=== PATIENT | male | born 1930 | race Hispanic/Latino ===

== ENCOUNTER 2018-07-06 14:22 | Inpatient (IN) | payer MEDICARE ==
[2018-07-06 14:24] VITALS: PULSE 78
[2018-07-06 14:27] VITALS: BMI 26.9
[2018-07-06] MEDS: Albuterol-Ipratrop 3 mg / 0.5 (3 ml) UD IH SCH ×3 (14:30→15:03)
[2018-07-06 14:47] LABS: ARTERIAL BLOOD GAS HCO3 31.6 mmol/L (21-28); ARTERIAL BLOOD GAS O2 SAT 89.6 % (95-98); ARTERIAL BLOOD GAS TCO2 34.5 mmol.L (22-28)
--- NOTE | 2018-07-06 15:02 | ED PDOC ---
Arrival/HPI - General Chief Complaint: Altered Mental Status Time Seen by Provider: 07/06/18 14:26 Historian: EMS, Other (Ed, the patient's guardian) - History of Present Illness Narrative History of Present Illness (Text): 07/06/18 15:00 Patient is an 88 yo male with past medical history of COPD, NSTEMI, Parkinson's, pneumonia, presents to the Emergency Department with altered mental status. As per EMS, the patient's "circuit breaker supervisor," Ed, found the patient at home with decreased level of responsiveness approximately "half hour" prior to arrival. He had seen the patient last at 4 am when reportedly the patient was "coughing a lot". As400 Administrator notes that the patient has appeared weaker over the past 2-3 days. Patient is unable to provide any history due to acuity of his condition. There is no family members present. Time/Duration: Prior to Arrival Symptom Onset: Gradual Symptom Course: Worsening Past Medical History - Infectious Disease Hx of Infectious Diseases: None - Tetanus Immunization Tetanus Immunization: Unknown - Cardiac Hx Congestive Heart Failure: Yes Hx Hypertension: Yes - Pulmonary Hx Chronic Obstructive Pulmonary Disease (COPD): Yes - Neurological Hx Neurological Disorder: Yes Hx Parkinson's Disease: Yes - HEENT Hx HEENT Disorder: Yes Hx Deafness: Yes - Renal Hx Renal Disorder: No - Endocrine/Metabolic Hx Endocrine Disorders: No - Hematological/Oncological Hx Cancer: Yes (PROSTATE) - Integumentary Hx Dermatological Disorder: No - Musculoskeletal/Rheumatological Hx Arthritis: Yes Hx Falls: Yes - Gastrointestinal Hx Gastrointestinal Disorders: No - Genitourinary/Gynecological Hx Genitourinary Disorders: Yes Hx Prostate Problems: Yes - Psychiatric Hx Emotional Abuse: No Hx Physical Abuse: No Hx Substance Use: No - Past Surgical History Past Surgical History: No Previous - Anesthesia Hx Anesthesia Reactions: No Hx Malignant Hyperthermia: No - Suicidal Assessment Feels Threatened In Home Enviroment: No Family/Social History Family/Social History: Unknown Family HX Smoking Status: Never Smoked Hx Alcohol Use: No Hx Substance Use: No Hx Substance Use Treatment: No Allergies/Home Meds Allergies/Adverse Reactions: Allergies No Known Allergies Allergy (Verified 10/02/16 15:21) Home Medications: Home Meds Medication Instructions Recorded Confirmed Pantoprazole [Protonix EC Tab] 40 mg PO QAM 05/02/16 07/06/18 Pramipexole [Mirapex] 1 mg PO TID 08/29/16 07/06/18 Tamsulosin [Flomax] 0.4 mg PO DAILY 09/28/16 07/06/18 Atorvastatin [Lipitor] 40 mg PO HS 07/06/18 07/06/18 Metoprolol Succinate XL [Toprol XL] 1 tab PO DAILY 07/06/18 07/06/18 Mirtazapine [Remeron] 1 tab PO HS 07/06/18 07/06/18 Review of Systems - Review of Systems Systems not reviewed;Unavailable: Acuity of Condition Constitutional: Fatigue. absent: Fevers Respiratory: SOB, Cough Cardiovascular: absent: Chest Pain Gastrointestinal: absent: Abdominal Pain Neurological: absent: Focal Weakness Physical Exam - Physical Exam Narrative Physical Exam (Text): 07/06/18 19:51 Head: Atraumatic. Normocephalic. Eyes: Pupils equal, no conjunctival injection. No proptosis. ENT: Mucous membranes are dry. No angioedema. Neck: Supple. No soft tissue swelling. No crepitus. Trachea midline. Cardiovascular: Regular rate. Regular rhythm. Systolic murmur noted. Distal pulses equal and palpable. Pulmonary/Chest: Tachypneic. Bilateral wheezing with rhonchi. Moderate respiratory distress noted. Abdominal: Soft and non-distended. No pulsatile masses. No rebound or guarding. Rectal: no gross bleeding, no melena Back: No midline deformity. NO edema. No cva tenderness. Extremities: Peripherla cyanosis. No calf pain. Mild edema, but nonpitting. Skin: Skin is pale. No petechiaei. Neurological: Will move all four extremities with no focal weakness noted. Will respond to simple commands. No facial droop noted. No meningeal signs. Sensation grossly intact. Psychiatric:Poor eye contact and interaction. Vital Signs Reviewed: Yes Temperature: Afebrile Pulse: Tachycardic Respiratory Rate: Tachypneic Appearance: Positive for: Ill-Appearing Mental Status: Positive for: Confused Finger Stick Blood Glucose: 136 - Systems Exam Head: Present: Atraumatic Conjunctiva: No: Injected Mouth: Present: Dry Pharnyx: No: ERYTHEMA Nose (Internal): Present: Normal Inspection Neck: Present: Normal Range of Motion. No: Meningeal Signs Respiratory/Chest: Present: Respiratory Distress, Rales, Rhonchi, Tachypneic. No: Good Air Exchange, Tender to Palpation Cardiovascular: Present: Murmurs, Tachycardic Abdomen: No: Tenderness Back: No: CVA Tenderness Upper Extremity: No: Edema Lower Extremity: Present: Edema. No: CALF TENDERNESS Neurological: Present: Motor Func Grossly Intact Skin: Present: Pale Psychiatric: No: Alert, Oriented x 3 Medical Decision Making ED Course and Treatment: 07/06/18 15:18 Patient is noted to have respiratory distress upon arrival. EMS reports that "oxygen saturations in the 60s" when they arrived to house. Patient reportedly does not have immediate family and lives with Ed who identifies himself as his circuit breaker supervisor. He states that the patient has a Living Will and is DNR/DNI. He states that "he has no family". On initial examination he is lethargic, hypoxic. Rhonchi and rales are noted. He was placed on supplemental oxygen and saturations improved to 86%. Patient became more alert and interactive. Duonebs and solumedrol ordered. CXR suggestive of pulmonary edema vs. multifocal pneumonia. IV antibiotics ordered. ABG reviewed. I had a conversation with Ed and he again states patient has no family. Patient cannot provide any history in his acute state. I reviewed prior records and reviewed last available living will. Case was discussed with hospitalist as well as ICU consult. Patient continued on oxygen, nebulizers. We were provided the number for the patient's independent trader who functions as his Power of Principal Law Clerk. Dr. Palencia, the hospitalist, and I reviewed the patient's critical condition, abnormal oxygen levels and chest xray findings, and I discussed the patient's critical nature and specifically the patient's wishes for intubation and "DNR/DNI" status. Power of deputy attorney general requests that patient be intubated after a conversation was had with him regarding his poor respiratory status and indications for intubation including but not limited to low oxygen levels, abnormal blood gas findings, altered mental status, abnormal chest xray findings and worsening of ABG findings. Power of deputy attorney general, Matt Alex, has also communicated directly with hospitalist and national service officer and requests intubation at this time and then reassessment of his condition. Patient intubated by me in the Emergency Department. He was preoxygenated, sedated with Etomidate 20 mg iv. Using 7.5 ET tube patient was intubated with direct visualization of ET tube through the cords, with breath sound auscultated both lungs after procedure and color change on co2 detector. 07/06/18 18:54 Procedure: Chest X-ray Impression: ET tube terminates at the level of clavicles. Consider advancement antegrade into the more inferior trachea follow-up by confirmation radiography. Nasogastric tube insertion adequate. Normal change in right pulmonary infiltrate. Medial left basilar atelectasis suspected. Dictator: Les Jiang MD 07/06/18 20:11 Chest xray findings post intubation reviewed with national service officer. I spoke directly with Dr. Hamilton, ICU attending to re-evaluate placement of tube as patient in ICU. - Critical Care Critical Care Minutes: 45 minutes - RAD Interpretation Radiology Orders: 07/06/18 14:29 CHEST PORTABLE [RAD] Stat - EKG Interpretation EKG Interpretation (Text): 07/06/18 20:24 EKG normal sinus rhythm rate of 67 with sinus arryhtmia with first degree av block Interpreted by ED Physician: Yes Type: 12 lead EKG - Medication Orders Current Medication Orders: Albuterol/Ipratropium (Duoneb 3 Mg/0.5 Mg (3 Ml) Ud) 3 ml IH Q15M SILVIA Stop: 07/06/18 15:01 Discontinued Medications Methylprednisolone (Solu-Medrol) 125 mg IVP STAT STA Stop: 07/06/18 14:36 Disposition/Present on Arrival - Present on Arrival Any Indicators Present on Arrival: Yes History of DVT/PE: No History of Uncontrolled Diabetes: No Urinary Catheter: Yes History of Decub. Ulcer: No History Surgical Site Infection Following: None - Disposition Have Diagnosis and Disposition been Completed?: Yes Diagnosis: Respiratory failure, COPD exacerbation, Pneumonia Disposition: HOSPITALIZED Disposition Time: 17:00 Patient Plan: Admission, ICU Patient Problems: Current Active Problems Problem Status Onset Pneumonia Acute COPD exacerbation Acute Respiratory failure Acute Condition: CRITICAL
[2018-07-06 15:07] LABS: VENOUS BLOOD GAS PO2 88 mm/Hg (30-55)
[2018-07-06 15:08] LABS: ARTERIAL BLOOD GAS PCO2 95 mm/Hg (35-45); ARTERIAL BLOOD GAS PH 7.13 (7.35-7.45)
[2018-07-06 15:08] LABS: BASO # 0.01 K/mm3 (0.0-2.0); BASO % 0.1 % (0.0-3.0); GRAN # 16.23 (1.4-6.5); GRAN % 89.6 % (50.0-68.0); HEMOGLOBIN 13.2 g/dL (14.0-18.0); LYMPH # 1.1 (1.2-3.4); LYMPH % 5.9 % (22.0-35.0); MEAN CELL VOLUME 100.7 fl (80.0-105.0); MEAN CORPUSCULAR HEMOGLOBIN 31.4 pg (25.0-35.0); MEAN CORPUSCULAR HGB CONC 31.2 g/dl (31.0-37.0); MEAN PLATELET VOLUME 10.5 fl (7.0-11.0); MONO # 0.8 (0.1-0.6); MONO % 4.4 % (1.0-6.0); RBC 4.2 10^6/uL (3.5-6.1); WHITE BLOOD COUNT 18.1 10^3/ul (4.5-11.0)
[2018-07-06 15:15] LABS: VENOUS BLOOD PH 7.11 (7.32-7.43)
[2018-07-06] MEDS ORDERED: Piperacill/Tazo 4.5gm in NS 4.5 GM/100 ML BAG IVPB STA (15:17)
[2018-07-06 15:19] LABS: ALB/GLOB RATIO 1.1 (1.1-1.8); ALBUMIN 3.4 g/dL (3.0-4.8); ALT/SGPT 15 U/L (7-56); AST/SGOT 48 U/L (17-59); BLOOD UREA NITROGEN 15 mg/dL (7-21); GFR NON-AFRICAN AMERICAN 57
--- NOTE | 2018-07-06 15:19 | RAD ---
Date of service: 07/06/2018 HISTORY: sob COMPARISON: 10/01/2016 FINDINGS: LUNGS: There is an extensive alveolar infiltrate throughout the right lung. PLEURA: No significant pleural effusion identified, no pneumothorax apparent. CARDIOVASCULAR: There is moderate cardiomegaly and moderate vascular congestion OSSEOUS STRUCTURES: No significant abnormalities. VISUALIZED UPPER ABDOMEN: Normal. OTHER FINDINGS: None. IMPRESSION: Moderate vascular congestion and extensive alveolar infiltrate in the right lung
[2018-07-06 15:23] LABS: INR 1.07; PARTIAL THROMBOPLASTIN TIME 30.7 Seconds (25.1-36.5); PROTHROMBIN TIME 12.2 SECONDS (9.4-12.5)
[2018-07-06 15:29] LABS: B-TYPE NATRIURETIC PEPTIDE 9270 pg/mL (0-450); TROPONIN I 0.07 ng/mL
--- NOTE | 2018-07-06 15:50 | CP.PCM.HP ---
<Tiffany Singh - Last Filed: 07/06/18 16:58> History of Present Illness - History of Present Illness History of Present Illness: Please note history limited as patient was unresponsive and hydramatic specialist, Ed, who was at bedside was a poor historian. Matt Butcher: [phone]; [phone] 88 yo male PMHx CHF, HTN, Pulm HTN, COPD, NSTEMI, prostate ca, Parkinson's disease presents to ER with altered mentation. Patient's hydramatic specialist reported patient was coughing ~4am the morning of admission which was the last time patient was seen at baseline. Then around noon patient was noted to be gurgling and unresponsive with constricted eyes bilaterally [as per the hydramatic specialist] and EMS was called. Patient was not complaining of any fevers, chills, pain prior to the events on the day of admission. At baseline patient's hydramatic specialist reported he is able to ambulate with a walker but described him as "lazy" and that he liked to stay home alot. Patient was unable to complete ADLs ie dressing himself etc at baseline. Renewals Representative denied any known history of falls, accidents, seizure l allen symptoms. PMHx: Parkinson's Disease, Prostate CA, Pulmonary HTN, atrial fibrillation, NSTEMI, COPD, BPH, CHF PSurgHx: cardiac cath 2017 Meds: pls see chart ALL: NKDA SocHx: denies smoking, alcohol use, drug use FamHx: unknown ROS: unobtainable secondary to clinical condition Present on Admission - Present on Admission Any Indicators Present on Admission: No Review of Systems - Review of Systems Systems not reviewed;Unavailable: Acuity of Condition Past Patient History - Infectious Disease Hx of Infectious Diseases: None - Tetanus Immunizations Tetanus Immunization: Unknown - Past Social History Smoking Status: Never Smoked - CARDIAC Hx Congestive Heart Failure: Yes Hx Hypertension: Yes - PULMONARY Hx Chronic Obstructive Pulmonary Disease (COPD): Yes - NEUROLOGICAL Hx Neurological Disorder: Yes Hx Parkinson's Disease: Yes - HEENT Hx HEENT Problems: Yes Hx Deafness: Yes - RENAL Hx Chronic Kidney Disease: No - ENDOCRINE/METABOLIC Hx Endocrine Disorders: No - HEMATOLOGICAL/ONCOLOGICAL Hx Cancer: Yes (PROSTATE) - INTEGUMENTARY Hx Dermatological Problems: No - MUSCULOSKELETAL/RHEUMATOLOGICAL Hx Arthritis: Yes Hx Falls: Yes - GASTROINTESTINAL Hx Gastrointestinal Disorders: No - GENITOURINARY/GYNECOLOGICAL Hx Genitourinary Disorders: Yes Hx Prostate Problems: Yes - PSYCHIATRIC Hx Emotional Abuse: No Hx Physical Abuse: No Hx Substance Use: No - SURGICAL HISTORY Hx Surgeries: No - ANESTHESIA Hx Anesthesia Reactions: No Hx Malignant Hyperthermia: No Meds Allergies/Adverse Reactions: Allergies Allergy/AdvReac Type Severity Reaction Status Date / Time No Known Allergies Allergy Verified 10/02/16 15:21 Physical Exam - Constitutional Appears: Chronically Ill, Other (lethargic) - Head Exam Head Exam: ATRAUMATIC, NORMAL INSPECTION, NORMOCEPHALIC - Eye Exam Eye Exam: Normal appearance. absent: Conjunctival injection, Scleral icterus Pupil Exam: Miosis (b/l) - ENT Exam ENT Exam: Mucous Membranes Dry Additional comments: nonrebreather in place - Respiratory Exam Respiratory Exam: Rales, Rhonchi, Wheezes, NORMAL BREATHING PATTERN. absent: Accessory Muscle Use, Clear to Auscultation Bilateral, Respiratory Distress - Cardiovascular Exam Cardiovascular Exam: +S1, +S2 - GI/Abdominal Exam GI & Abdominal Exam: Soft. absent: Distended, Firm - Rectal Exam Rectal Exam: Deferred - Extremities Exam Extremities exam: Positive for: normal inspection, pedal pulses present. Negative for: pedal edema - Neurological Exam Neurological exam: Altered - Psychiatric Exam Additional comments: lethargic - Skin Skin Exam: Dry, Pallor, Pallor Results - Vital Signs Recent Vital Signs: Last Vital Signs Temp Pulse 56 L 07/06/18 14:55 Resp 25 H 07/06/18 14:55 BP 101/52 L 07/06/18 14:55 Pulse Ox 86 L 07/06/18 14:55 - Labs Result Diagrams: 07/06/18 15:00 07/06/18 15:00 Labs: Laboratory Results - last 24 hr 07/06/18 07/06/18 07/06/18 14:40 15:00 15:00 WBC 18.1 H D RBC 4.20 Hgb 13.2 L Hct 42.3 MCV 100.7 MCH 31.4 MCHC 31.2 RDW 16.0 H Plt Count 220 MPV 10.5 Gran % 89.6 H Lymph % (Auto) 5.9 L [place] % (Auto) 4.4 Eos % (Auto) 0.0 L Baso % (Auto) 0.1 Gran # 16.23 H Lymph # (Auto) 1.1 L [place] # (Auto) 0.8 H Eos # (Auto) 0.0 Baso # (Auto) 0.01 PT 12.2 INR 1.07 APTT 30.7 pCO2 95 H* pO2 61.0 L HCO3 31.6 H ABG pH 7.13 L* ABG Total CO2 34.5 H ABG O2 Saturation 89.6 L ABG Base Excess -0.4 ABG Potassium 3.8 VBG pH VBG pCO2 VBG HCO3 VBG Total CO2 VBG O2 Sat (Calc) VBG Base Excess VBG Potassium Sodium 141.0 Chloride 109.0 H Glucose 124 H Lactate 1.2 FiO2 50.0 Potassium Carbon Dioxide Anion Gap BUN Creatinine Est GFR ( Amer) Est GFR (Non-Af Amer) Random Glucose Calcium Magnesium Total Bilirubin AST ALT Alkaline Phosphatase Lactate Dehydrogenase Total Creatine Kinase Troponin I NT-Pro-B Natriuret Pep Total Protein Albumin Globulin Albumin/Globulin Ratio Arterial Blood Potassium 3.8 Venous Blood Potassium Digoxin 07/06/18 07/06/18 07/06/18 15:00 15:00 15:00 WBC RBC Hgb Hct MCV MCH MCHC RDW Plt Count MPV Gran % Lymph % (Auto) [place] % (Auto) Eos % (Auto) Baso % (Auto) Gran # Lymph # (Auto) [place] # (Auto) Eos # (Auto) Baso # (Auto) PT INR APTT pCO2 pO2 88 H HCO3 ABG pH ABG Total CO2 ABG O2 Saturation ABG Base Excess ABG Potassium VBG pH 7.11 L* VBG pCO2 103.0 H* VBG HCO3 32.7 H VBG Total CO2 35.9 H VBG O2 Sat (Calc) 96.7 H VBG Base Excess 0.0 VBG Potassium 4.2 Sodium 140.0 144 Chloride 108.0 H 105 Glucose 126 H Lactate 1.7 FiO2 21.0 Potassium 4.3 Carbon Dioxide 33 Anion Gap 10 BUN 15 Creatinine 1.2 Est GFR ( Amer) > 60 Est GFR (Non-Af Amer) 57 Random Glucose 127 H Calcium 8.0 L Magnesium 1.9 Total Bilirubin 0.5 AST 48 ALT 15 Alkaline Phosphatase 107 Lactate Dehydrogenase 649 Total Creatine Kinase 47 Troponin I 0.07 D NT-Pro-B Natriuret Pep 9270 H Total Protein 6.5 Albumin 3.4 Globulin 3.1 Albumin/Globulin Ratio 1.1 Arterial Blood Potassium Venous Blood Potassium 4.2 Digoxin < 0.4 L Assessment & Plan - Assessment and Plan (Free Text) Assessment: 88 yo male PMHx CHF, HTN, Pulm HTN, COPD, NSTEMI, prostate ca, Parkinson's disease presents to ER with altered mentation. ABG suggestive of hypercapnic respiratory failure. Patient intubated and placed on vent and transferred to MICU for further conditioning Plan: Neuro -altered mentation- lethargic and unresponsive -f/u head CT -f/u UDS -maintain HoB above 30 degrees -maintain normothermia Cardio -1 L bolus NS in the ER -hold home BP meds [patient has hx of HTN] -proBNP 9270 -maintain MAP > 65 -Cardio Dr. Justice consulted Pulm -hypercapnic respiratory acidosis -intubated on vent -empiric abx Vancomycin and Merrem -CXR: moderate vascular congestion and extensive alveolar infiltrate in the right lung -Solumedrol 20mg ivp q12 -Duoneb 3ml inh q6 GI -Protnix 40mg ivp -no acute issues -insert NGT Renal -maintain strict Is and Os -insert cruz -avoid nephrotoxic drugs Endo -Accucheck q6h -maintain euglycemia ID -likely CAP vs aspiration pna -empiric abx Vancomycin and Merrem -f/u procalcitonin -f/u blood, urine, and sputum cultures -ID Dr. Pastrana consulted DVT ppx: Heparin 5000u sc q8, SCDs Diet: NPO Discussed with Dr. Slime Singh PGY3 <Ashkan Palencia - Last Filed: 07/07/18 16:35> Results - Vital Signs Recent Vital Signs: Last Vital Signs Temp 98.0 F 07/07/18 12:00 Pulse 53 L 07/07/18 15:02 Resp 15 07/07/18 10:50 BP 81/32 L 07/07/18 15:02 Pulse Ox 95 07/07/18 15:02 - Labs Result Diagrams: 07/07/18 03:30 07/07/18 03:30 Labs: Laboratory Results - last 24 hr 07/06/18 07/06/18 07/06/18 16:40 16:40 19:10 WBC RBC Hgb Hct MCV MCH MCHC RDW Plt Count MPV Gran % Lymph % (Auto) [place] % (Auto) Eos % (Auto) Baso % (Auto) Gran # Lymph # (Auto) [place] # (Auto) Eos # (Auto) Baso # (Auto) Neutrophils % (Manual) Band Neutrophils % Lymphocytes % (Manual) Monocytes % (Manual) Platelet Evaluation pCO2 100 H* pO2 72.0 L HCO3 33.3 H ABG pH 7.13 L* ABG Total CO2 36.4 H ABG O2 Saturation 95.4 ABG O2 Content ABG Base Excess 0.9 ABG Hemoglobin ABG Carboxyhemoglobin POC ABG HHb (Measured) ABG Methemoglobin ABG O2 Capacity ABG Potassium 3.8 Hgb O2 Saturation Sodium 141.0 Chloride 109.0 H Glucose 117 H Lactate 0.8 FiO2 100.0 Potassium Carbon Dioxide Anion Gap BUN Creatinine Est GFR ( Amer) Est GFR (Non-Af Amer) POC Glucose (mg/dL) Random Glucose Calcium Phosphorus Magnesium Total Bilirubin AST ALT Alkaline Phosphatase Troponin I Total Protein Albumin Globulin Albumin/Globulin Ratio Triglycerides Cholesterol LDL Cholesterol Direct HDL Cholesterol Arterial Blood Potassium 3.8 Urine Color Dark yellow Urine Appearance Slight-cloudy Urine pH 5.5 Ur Specific [place] >= 1.030 Urine Protein 100 H Urine Glucose (UA) Negative Urine Ketones 15 H Urine Blood Trace-lysed H Urine Nitrate Negative Urine Bilirubin Small H Urine Urobilinogen 1.0 H Ur Leukocyte Esterase Trace H Urine RBC 1 - 3 Urine WBC 1 - 3 Ur Epithelial Cells 0 - 2 Amorphous Sediment Few Urine Bacteria Trace Urine Opiates Screen Urine Methadone Screen Ur Barbiturates Screen Ur Phencyclidine Scrn Ur Amphetamines Screen U Benzodiazepines Scrn U Oth Cocaine Metabols U Cannabinoids Screen Influenza Typ A,B (EIA) Negative for flu a/b 07/06/18 07/06/18 07/06/18 19:10 21:26 21:52 WBC RBC Hgb Hct MCV MCH MCHC RDW Plt Count MPV Gran % Lymph % (Auto) [place] % (Auto) Eos % (Auto) Baso % (Auto) Gran # Lymph # (Auto) [place] # (Auto) Eos # (Auto) Baso # (Auto) Neutrophils % (Manual) Band Neutrophils % Lymphocytes % (Manual) Monocytes % (Manual) Platelet Evaluation pCO2 pO2 HCO3 ABG pH ABG Total CO2 ABG O2 Saturation ABG O2 Content ABG Base Excess ABG Hemoglobin ABG Carboxyhemoglobin POC ABG HHb (Measured) ABG Methemoglobin ABG O2 Capacity ABG Potassium Hgb O2 Saturation Sodium Chloride Glucose Lactate FiO2 Potassium Carbon Dioxide Anion Gap BUN Creatinine Est GFR ( Amer) Est GFR (Non-Af Amer) POC Glucose (mg/dL) 132 H Random Glucose Calcium Phosphorus Magnesium Total Bilirubin AST ALT Alkaline Phosphatase Troponin I 0.11 D Total Protein Albumin Globulin Albumin/Globulin Ratio Triglycerides Cholesterol LDL Cholesterol Direct HDL Cholesterol Arterial Blood Potassium Urine Color Urine Appearance Urine pH Ur Specific [place] Urine Protein Urine Glucose (UA) Urine Ketones Urine Blood Urine Nitrate Urine Bilirubin Urine Urobilinogen Ur Leukocyte Esterase Urine RBC Urine WBC Ur Epithelial Cells Amorphous Sediment Urine Bacteria Urine Opiates Screen Negative Urine Methadone Screen Negative Ur Barbiturates Screen Negative Ur Phencyclidine Scrn Negative Ur Amphetamines Screen Negative U Benzodiazepines Scrn Negative U Oth Cocaine Metabols Negative U Cannabinoids Screen Negative Influenza Typ A,B (EIA) 07/07/18 07/07/18 07/07/18 03:30 03:30 03:30 WBC 16.8 H RBC 4.01 Hgb 12.6 L Hct 39.0 L MCV 97.3 D MCH 31.4 MCHC 32.3 RDW 15.8 H Plt Count 194 MPV 10.8 Gran % 94.0 H Lymph % (Auto) 2.4 L [place] % (Auto) 3.6 Eos % (Auto) 0.0 L Baso % (Auto) 0.0 Gran # 15.77 H Lymph # (Auto) 0.4 L [place] # (Auto) 0.6 Eos # (Auto) 0.0 Baso # (Auto) 0.00 Neutrophils % (Manual) 89 H Band Neutrophils % 4 H Lymphocytes % (Manual) 3 L Monocytes % (Manual) 4 Platelet Evaluation Normal pCO2 pO2 HCO3 ABG pH ABG Total CO2 ABG O2 Saturation ABG O2 Content ABG Base Excess ABG Hemoglobin ABG Carboxyhemoglobin POC ABG HHb (Measured) ABG Methemoglobin ABG O2 Capacity ABG Potassium Hgb O2 Saturation Sodium 137 Chloride 105 Glucose Lactate FiO2 Potassium 4.5 Carbon Dioxide 25 Anion Gap 12 BUN 19 Creatinine 1.1 Est GFR ( Amer) > 60 Est GFR (Non-Af Amer) > 60 POC Glucose (mg/dL) Random Glucose 142 H Calcium 7.5 L Phosphorus 2.9 Magnesium 1.7 Total Bilirubin 0.9 AST 40 ALT 36 Alkaline Phosphatase 66 Troponin I 0.11 Total Protein 6.0 Albumin 2.9 L Globulin 3.1 Albumin/Globulin Ratio 0.9 L Triglycerides 517 H Cholesterol 78 L LDL Cholesterol Direct < 30 HDL Cholesterol 40 Arterial Blood Potassium Urine Color Urine Appearance Urine pH Ur Specific [place] Urine Protein Urine Glucose (UA) Urine Ketones Urine Blood Urine Nitrate Urine Bilirubin Urine Urobilinogen Ur Leukocyte Esterase Urine RBC Urine WBC Ur Epithelial Cells Amorphous Sediment Urine Bacteria Urine Opiates Screen Urine Methadone Screen Ur Barbiturates Screen Ur Phencyclidine Scrn Ur Amphetamines Screen U Benzodiazepines Scrn U Oth Cocaine Metabols U Cannabinoids Screen Influenza Typ A,B (EIA) 07/07/18 07/07/18 07/07/18 06:00 07:47 11:06 WBC RBC Hgb Hct MCV MCH MCHC RDW Plt Count MPV Gran % Lymph % (Auto) [place] % (Auto) Eos % (Auto) Baso % (Auto) Gran # Lymph # (Auto) [place] # (Auto) Eos # (Auto) Baso # (Auto) Neutrophils % (Manual) Band Neutrophils % Lymphocytes % (Manual) Monocytes % (Manual) Platelet Evaluation pCO2 30 L pO2 177.0 H HCO3 24.5 ABG pH 7.52 H ABG Total CO2 25.4 ABG O2 Saturation 99.8 H ABG O2 Content 16.5 ABG Base Excess 2.2 ABG Hemoglobin 11.7 ABG Carboxyhemoglobin 1.5 POC ABG HHb (Measured) 0.2 ABG Methemoglobin 0.6 ABG O2 Capacity 16.5 ABG Potassium Hgb O2 Saturation 97.8 Sodium Chloride Glucose Lactate FiO2 100.0 Potassium Carbon Dioxide Anion Gap BUN Creatinine Est GFR ( Amer) Est GFR (Non-Af Amer) POC Glucose (mg/dL) 120 H 124 H Random Glucose Calcium Phosphorus Magnesium Total Bilirubin AST ALT Alkaline Phosphatase Troponin I Total Protein Albumin Globulin Albumin/Globulin Ratio Triglycerides Cholesterol LDL Cholesterol Direct HDL Cholesterol Arterial Blood Potassium Urine Color Urine Appearance Urine pH Ur Specific [place] Urine Protein Urine Glucose (UA) Urine Ketones Urine Blood Urine Nitrate Urine Bilirubin Urine Urobilinogen Ur Leukocyte Esterase Urine RBC Urine WBC Ur Epithelial Cells Amorphous Sediment Urine Bacteria Urine Opiates Screen Urine Methadone Screen Ur Barbiturates Screen Ur Phencyclidine Scrn Ur Amphetamines Screen U Benzodiazepines Scrn U Oth Cocaine Metabols U Cannabinoids Screen Influenza Typ A,B (EIA) Attending/Attestation - Attestation I have personally seen and examined this patient.: Yes I have fully participated in the care of the patient.: Yes I have reviewed all pertinent clinical information: Yes Notes (Text): 07/07/18 16:30 attending note; Patient seen and examined with resident in ER. Patient is on 100% non rebreather. Noncommunicative. History from patient's caregiver by the bedside. Patient complaint of cough since last night. This morning found to be more lethargic. Patient is a 88 year old male with PMHx of CHF, HTN, Pulm HTN, COPD, NSTEMI, prostate ca, Parkinson's disease, gait instability presents to ER with altered mentation. hypercapnic respiratory failure; currently patient is nonverbal. On nonrebreather mask. minimally Responsive. case discussed with Power of consumer attorney Matt Alex [phone] / [phone] in detail. Patient is full code for now. Patient is intubated. We will be transferred to ICU. case discussed with pulverizer feeder in detail. CT head ordered. Monitor closely in ICU. Message left with patient's niece joseph Smith at [phone]. prognosis is poor. Both ER attending and intensivt discussed the medical condition with patient's power of consumer attorney Matt Alex.
[2018-07-06] MEDS ORDERED: Vancomycin 1gm in NS 250ml 1 GM/250 ML BAG IVPB SCH (16:15)
[2018-07-06] MEDS ORDERED: Sodium Chloride 0.9% 1,000 ML IV SCH ×2 (16:15→20:45)
[2018-07-06 16:43] LABS: ARTERIAL BLOOD GAS HCO3 33.3 mmol/L (21-28); ARTERIAL BLOOD GAS O2 SAT 95.4 % (95-98); ARTERIAL BLOOD GAS PCO2 100 mm/Hg (35-45); ARTERIAL BLOOD GAS TCO2 36.4 mmol.L (22-28)
[2018-07-06 16:48] LABS: ARTERIAL BLOOD GAS PH 7.13 (7.35-7.45)
[2018-07-06] MEDS ORDERED: Sodium Chloride 0.9% 1,000 ML IV STA (16:52)
[2018-07-06] MEDS ORDERED: Succinylcholine 200 mg/10 ml Inj IV ONE (16:57)
[2018-07-06] MEDS ORDERED: Etomidate 20 mg/10ml Inj IV ONE (16:57)
--- NOTE | 2018-07-06 18:34 | RAD ---
Date of service: 07/06/2018 HISTORY: post intubation COMPARISON: Portable chest 07/06/2018, 2:35 p.m.. FINDINGS: LUNGS: Interval endotracheal intubation terminates 8.1 cm above the jonathan approximately, at the level of the upper clavicles. Consider advancing the tube further into the trachea an additional 3-4 cm followed by confirmation radiography. A nasogastric tube is in place terminating at the left upper quadrant abdomen. Persistent heterogeneous infiltrate is seen affecting the mid inferior right lung zones. Medial left basilar opacity reflects borderline atelectasis. PLEURA: No significant pleural effusion identified, no pneumothorax apparent. CARDIOVASCULAR: Stable prominent cardiac silhouette. Underlying limited pulmonary vascular congestion difficult to completely exclude. OSSEOUS STRUCTURES: No significant abnormalities. VISUALIZED UPPER ABDOMEN: Normal. OTHER FINDINGS: None. IMPRESSION: ET tube terminates at the level of clavicles. Consider advancement antegrade into the more inferior trachea follow-up by confirmation radiography. Nasogastric tube insertion adequate. Normal change in right pulmonary infiltrate. Medial left basilar atelectasis suspected.
[2018-07-06 19:17] LABS: PH,URINE 5.5 (4.7-8.0); URINE BILIRUBIN SMALL (NEGATIVE); URINE BLOOD TRACE-LYSED (NEGATIVE); URINE GLUCOSE (UA) NEGATIVE (NEGATIVE); URINE LEUKOCYTE ESTERASE TRACE Leu/uL (NEGATIVE); URINE PROTEIN 100 mg/dL (<30 mg/dL)
[2018-07-06 19:19] LABS: URINE APPEARANCE SLIGHT-CLOUDY (CLEAR); URINE COLOR DARK YELLOW (YELLOW)
[2018-07-06 19:24] LABS: URINE EPITHELIAL CELLS 0 - 2 /hpf (0-5)
[2018-07-06 19:25] LABS: URINE AMORPHOUS SEDIMENT FEW; URINE BACTERIA TRACE (NEG)
[2018-07-06 19:45] LABS: PHENCYCLIDINE, UR NEGATIVE (NEGATIVE)
[2018-07-06 19:58] LABS: BARBITURATES, UR NEGATIVE (NEGATIVE); BENZODIAZEPINES, UR NEGATIVE (NEGATIVE); OPIATES, UR NEGATIVE (NEGATIVE)
[2018-07-06] MEDS ORDERED: Piperacillin/Tazobact 2.25gm 2.25 GM/100 ML BAG IVPB SCH (20:00)
[2018-07-06] MEDS ORDERED: Propofol 10 mg/ml 1,000 MG/100 ML VIAL IV PRN (21:32)
[2018-07-06] MEDS ORDERED: MethylPREDNISolone 40 mg Vial IVP SCH ×2 (22:00)
[2018-07-06] MEDS ORDERED: MEROPENEM 500 MG in NS 500 MG/50 ML BAG IVPB SCH (22:00)
[2018-07-06] MEDS: Sodium Chloride 0.9% 1,000 ML IV SCH (22:03)
[2018-07-06] MEDS: MethylPREDNISolone 40 mg Vial IVP SCH (22:04)
[2018-07-06] MEDS: Meropenem IV 1 gm in NS 1 GM/50 ML BAG IVPB SCH (22:04)
[2018-07-06] MEDS: levoFLOXacin 750 mg in D5W 750 MG/150 ML BAG IVPB SCH (22:05)
--- NOTE | 2018-07-06 23:33 | CARD ---
APPROVED REPORT Date of service: 07/06/2018 EKG Measurement Heart [id number] <Conclusion> Sinus rhythm with sinus arrhythmia with 1st degree AV block Septal infarct, age undetermined Abnormal ECG
[2018-07-07] MEDS: Albuterol-Ipratrop 3 mg / 0.5 (3 ml) UD IH SCH ×4 (02:46→19:46)
--- NOTE | 2018-07-07 03:42 | CON ---
DATE: 07/06/2018 HISTORY OF PRESENT ILLNESS: This is an 88-year-old gentleman with history of Parkinson disease, CHF, hypertension, pulmonary hypertension, COPD, coronary artery disease who presented with acute onset of altered mental status. It appears that about half an hour prior to arrival to [facility] ER, those symptoms happened. No more history available at present time as no family or caregivers at bedside at present time and the patient is unable to provide any history. No nausea, no vomiting, no diarrhea, no constipation. PAST MEDICAL HISTORY: Parkinson disease, pulmonary hypertension, atrial fibrillation, coronary artery disease, COPD, BPH, CHF. ALLERGIES: NKDA. MEDICATION AT HOME: Remeron, Protonix, metoprolol, isosorbide mononitrate, Flomax, carbidopa/levodopa, entacapone, Lipitor. SOCIAL HISTORY: No alcohol, illicit drug abuse. No tobacco smoking. REVIEW OF SYSTEMS: Review of 12-organ system other than mentioned in history of present illness is negative. PHYSICAL EXAMINATION: VITAL SIGNS: Blood pressure 101/52, heart rate 56, oxygen saturation 92% on 100% on partial non-rebreather, respiratory rate 25. ENT: Head and neck atraumatic. LUNGS: Crackles bilaterally, right more than left. HEART: Irregular rate and rhythm. S1 and S2 distant. ABDOMEN: Soft, nontender, nondistended. MUSCULOSKELETAL: Trace bilateral pedal and ankle edema. NEUROLOGIC: The patient is not seen moving extremities spontaneously. SKIN: Moist. PSYCHIATRIC: The patient is very lethargic and nonresponsive to verbal stimuli. LABORATORY DATA: WBC 18.1, hemoglobin 13.2, platelet count 220. Sodium 144, potassium 4.3, chloride 105, carbon dioxide 33, BUN 15, creatinine 1.2, glucose 127, calcium 8. ProBNP 9270. AST 48, ALT 15, total bilirubin 0.5, magnesium 1.9. ABG showed 7.13/100/72 and that was on 100% partial non-rebreather. INR 1.07. Digoxin level is less than 0.4. Chest x-ray showed lobar pneumonia on the right side. EKG showed first-degree AV block, sinus rhythm. No specific ischemic changes. ASSESSMENT AND PLAN: This is an 88-year-old gentleman with severe sepsis secondary to lobar pneumonia/community-acquired pneumonia, complicated by multiorgan system failure including septic encephalopathy, acute kidney injury and hemodynamic instability. At present time, we will proceed with ABC stabilization including intubation and maintaining gas exchange and ventilatory parameters (A and B) as well as fluid resuscitation and hemodynamic support with pressors (C). We will start septic workup including blood, urine, sputum culture, procalcitonin level. We will start broad-spectrum antibiotics and get Infectious Disease on board. CT head would be reasonable to obtain as well. Echocardiogram and trending troponin would be reasonable as well. The patient has hypercapnic respiratory failure, however his mental status makes him unlikely to cooperate with BiPAP and CO2 retention progress. The patient will also be on low-dose steroids for severe community-acquired pneumonia as well as potential bronchospasm. We will continue with deep venous thrombosis and gastrointestinal prophylaxes with low tidal volume ventilation to prevent progression into acute lung injury, tidal volume of 4 to 8 mL of predicted body weight and plateau pressure less than 30 cm of water. Head of bed elevated at >35 degrees. Oral hygiene and VAP bundle. Once hemodynamics stabilized, we will utilize conservative fluid and oxygen management, daily sedation vacation and weaning trials. We will maintain blood glucose within 140-180 range according to NICE-SUGAR trial. We will try to avoid nephrotoxic medication but not at expense of treating underlying disease, and avoid hyperchloremia and maintaining mean arterial pressure closer to 70 as the patient has history of hypertension. The patient will stay n.p.o. for now. We will continue with gastrointestinal prophylaxis. ccm time 40 min Rah Lozano MD JEANETTE
[2018-07-07 03:55] LABS: GRAN # 15.77 (1.4-6.5); HEMOGLOBIN 12.6 g/dL (14.0-18.0); LYMPH # 0.4 (1.2-3.4); LYMPH % 2.4 % (22.0-35.0); MEAN CELL VOLUME 97.3 fl (80.0-105.0); MEAN CORPUSCULAR HEMOGLOBIN 31.4 pg (25.0-35.0); MEAN CORPUSCULAR HGB CONC 32.3 g/dl (31.0-37.0); MEAN PLATELET VOLUME 10.8 fl (7.0-11.0); MONO # 0.6 (0.1-0.6); MONO % 3.6 % (1.0-6.0); PLATELET COUNT 194 10^3/uL (120.0-450.0); RBC 4.01 10^6/uL (3.5-6.1); RED CELL DISTRIBUTION WIDTH 15.8 % (11.5-14.5); WHITE BLOOD COUNT 16.8 10^3/ul (4.5-11.0)
[2018-07-07 03:59] LABS: HDL CHOLESTEROL 40 mg/dL (29-60)
[2018-07-07 04:15] LABS: ALB/GLOB RATIO 0.9 (1.1-1.8); ALBUMIN 2.9 g/dL (3.0-4.8); ALT/SGPT 36 U/L (7-56); AST/SGOT 40 U/L (17-59); BLOOD UREA NITROGEN 19 mg/dL (7-21); CALCIUM 7.5 mg/dL (8.4-10.5); GFR NON-AFRICAN AMERICAN > 60; TROPONIN I 0.11 ng/mL
[2018-07-07 04:22] LABS: BAND 4 % (0-2); LYMPHOCYTE 3 % (22.0-35.0); MONOCYTE 4 % (1.0-6.0); NEUTROPHIL 89 % (50.0-70.0); PLATELET ESTIMATE NORMAL (NORMAL)
[2018-07-07 06:17] LABS: LDL CHOLESTEROL < 30 mg/dL (0-129)
[2018-07-07 06:18] LABS: ARTERIAL BLOOD GAS HCO3 24.5 mmol/L (21-28); ARTERIAL BLOOD GAS HEMOGLOBIN 11.7 g/dL (11.7-17.4); ARTERIAL BLOOD GAS O2 CAPACITY 16.5 mL/dl (16-24); ARTERIAL BLOOD GAS O2 CONTENT 16.5 ML/dl (15-23); ARTERIAL BLOOD GAS O2 SAT 99.8 % (95-98); ARTERIAL BLOOD GAS PCO2 30 mm/Hg (35-45); ARTERIAL BLOOD GAS PH 7.52 (7.35-7.45); ARTERIAL BLOOD GAS TCO2 25.4 mmol.L (22-28)
--- NOTE | 2018-07-07 07:00 | CP.PCM.PN ---
<Tiffany Singh - Last Filed: 07/07/18 15:18> Subjective - Date & Time of Evaluation Date of Evaluation: 07/07/18 Time of Evaluation: 06:59 - Subjective Subjective: [id number] Progress note for Dr. Palencia Patient seen and examined at bedside. No acute events overnight. Intubated on vent (14, 350, 5, 50) and sedated. 600cc output from NGT on intermittent suction. UO 100cc overnight. ROS unobtainable secondary to clinical condition. Objective - Vital Signs/Intake and Output Vital Signs (last 24 hours): Temp Pulse Resp BP Pulse Ox 98.3 F 99 H 20 138/70 100 07/06/18 20:53 07/07/18 02:00 07/06/18 20:53 07/07/18 02:00 07/07/18 02:00 Intake and Output: 07/06/18 07/07/18 18:59 06:59 Intake Total 0 Balance 0 - Medications Medications: Current Medications Albuterol/Ipratropium (Duoneb 3 Mg/0.5 Mg (3 Ml) Ud) 3 ml IH [id number] SILVIA Last Admin: 07/07/18 02:46 Dose: 3 ml Heparin Sodium (Porcine) (Heparin) 5,000 units SC Q8 SILVIA; Protocol Last Admin: 07/07/18 06:51 Dose: 5,000 units Vancomycin HCl (Vancomycin 1gm) 1 gm in 250 mls @ 167 mls/hr IVPB DAILY SILVIA; Protocol Last Admin: 07/06/18 17:47 Dose: 167 mls/hr Levofloxacin/Dextrose (Levaquin 750mg) 750 mg in 150 mls @ 100 mls/hr IVPB DAILY SILVIA; Protocol Last Admin: 07/06/18 22:05 Dose: 100 mls/hr Meropenem (Merrem Iv 1 Gm Premix) 1 gm in 50 mls @ 100 mls/hr IVPB Q12 SILVIA; Protocol Last Admin: 07/06/18 22:04 Dose: 100 mls/hr Sodium Chloride (Sodium Chloride 0.9%) 1,000 mls @ 75 mls/hr IV .[id number] SILVIA Last Admin: 07/06/18 22:03 Dose: 75 mls/hr Propofol (Diprivan) 1,000 mg in 100 mls @ 2.558 mls/hr IV .Q24H PRN; Protocol PRN Reason: TITRATE PER MD ORDER Last Titration: 07/06/18 22:26 Dose: 20 mcg/kg/min, 10.233 mls/hr Methylprednisolone (Solu-Medrol) 40 mg IVP Q12 [facility] Last Admin: 07/06/18 22:04 Dose: 40 mg Pantoprazole Sodium (Protonix Inj) 40 mg IVP DAILY SILVIA - Labs Labs: 07/07/18 03:30 07/07/18 03:30 PT 12.2 SECONDS (9.4-12.5) 07/06/18 15:00 INR 1.07 07/06/18 15:00 APTT 30.7 Seconds (25.1-36.5) 07/06/18 15:00 - Constitutional Appears: No Acute Distress, Cachectic, Chronically Ill - Head Exam Head Exam: ATRAUMATIC, NORMAL INSPECTION, NORMOCEPHALIC - Eye Exam Eye Exam: Normal appearance. absent: Conjunctival injection, Scleral icterus - ENT Exam ENT Exam: Mucous Membranes Dry Additional comments: ET tube in place - Respiratory Exam Respiratory Exam: Rales, Rhonchi. absent: Accessory Muscle Use, Clear to Ausculation Bilateral, Wheezes - Cardiovascular Exam Cardiovascular Exam: REGULAR RHYTHM, +S1, +S2, Murmur - GI/Abdominal Exam GI & Abdominal Exam: Soft, Normal Bowel Sounds. absent: Firm, Guarding, Rigid, Tenderness - Rectal Exam Rectal Exam: Deferred - Extremities Exam Extremities Exam: absent: Pedal Edema - Neurological Exam Additional comments: sedated - Psychiatric Exam Additional comments: sedated - Skin Skin Exam: Dry, Intact, Pallor, Pallor Assessment and Plan - Assessment and Plan (Free Text) Assessment: 88 yo male PMHx CHF, HTN, Pulm HTN, COPD, NSTEMI, prostate ca, Parkinson's disease presents to ER with altered mentation. ABG suggestive of hypercapnic respiratory failure. Patient intubated and placed on vent. Transferred to MICU for further management of severe sepsis with acute toxic metabolic en cephalopathy likely secondary to severe right sided pneuomonia Plan: Neuro -lethargic and unresponsive on presentation; currently intubated and sedated -currently on -Head CT unremarkable -negative UDS -maintain HoB above 30 degrees -maintain normothermia Cardio -1 L bolus NS in the ER; now on NS @ 75 -hold home BP meds [patient has hx of HTN] -proBNP 9270 -maintain MAP > 65 -Cardio Dr. Justice consulted Pulm -hypercapnic respiratory acidosis -intubated on vent (14, 350, 5, 50) -empiric abx Vancomycin, Levaquin and Merrem -CXR: moderate vascular congestion and extensive alveolar infiltrate in the right lung -Solumedrol 40mg ivp q12 -Duoneb 3ml inh q6 -daily weaning trials GI -Protonix 40mg ivp -no acute issues -monitor NGT output Renal -maintain strict Is and Os -insert cruz -avoid nephrotoxic drugs Endo -Accucheck q6h -maintain euglycemia ID -likely CAP vs aspiration pna -empiric abx Vancomycin, Levaquin and Merrem -f/u procalcitonin and Leginoella -f/u blood, urine, and sputum cultures -ID Dr. Pastrana consulted DVT ppx: Heparin 5000u sc q8, SCDs Diet: NPO Discussed with Dr. Slime Singh PGY3 <Ashkan Palencia - Last Filed: 07/07/18 16:38> Objective - Vital Signs/Intake and Output Vital Signs (last 24 hours): Temp Pulse Resp BP Pulse Ox 98.0 F 53 L 15 81/32 L 95 07/07/18 12:00 07/07/18 15:02 07/07/18 10:50 07/07/18 15:02 07/07/18 15:02 Intake and Output: 07/07/18 07/07/18 06:59 18:59 Intake Total 970 Output Total 700 Balance 270 - Medications Medications: Current Medications Albuterol/Ipratropium (Duoneb 3 Mg/0.5 Mg (3 Ml) Ud) 3 ml IH [id number] SILVIA Last Admin: 07/07/18 13:58 Dose: 3 ml Heparin Sodium (Porcine) (Heparin) 5,000 units SC Q8 SILVIA; Protocol Last Admin: 07/07/18 13:28 Dose: 5,000 units Levofloxacin/Dextrose (Levaquin 750mg) 750 mg in 150 mls @ 100 mls/hr IVPB DAILY SILVIA; Protocol Last Admin: 07/07/18 10:25 Dose: 100 mls/hr Sodium Chloride (Sodium Chloride 0.9%) 1,000 mls @ 75 mls/hr IV .[id number] SILVIA Last Admin: 07/07/18 10:26 Dose: 75 mls/hr Propofol (Diprivan) 1,000 mg in 100 mls @ 2.558 mls/hr IV .Q24H PRN; Protocol PRN Reason: TITRATE PER MD ORDER Last Titration: 07/07/18 06:00 Dose: 0 mcg/kg/min, 0 mls/hr Vancomycin HCl (Vancomycin 1gm) 1 gm in 250 mls @ 167 mls/hr IVPB Q12 SIL[facility]IA; Protocol Last Admin: 07/07/18 10:24 Dose: 167 mls/hr Midazolam 100 mg/100ml in NS (Midazolam 100 Mg/100ml In Ns) 100 mg in 100 mls @ 2 mls/hr IV .Q24H PRN; Protocol PRN Reason: Sedation Last Admin: 07/07/18 11:14 Dose: 2 mg/hr, 2 mls/hr Meropenem (Merrem Iv 1 Gm Premix) 1 gm in 50 mls @ 100 mls/hr IVPB Q8 SILVIA; Protocol Last Admin: 07/07/18 13:29 Dose: Not Given Sodium Chloride (Sodium Chloride 0.9%) 1,000 mls @ 999 mls/hr IV .Q1H1M STA Stop: 07/07/18 16:40 Last Admin: 07/07/18 16:14 Dose: 999 mls/hr Sodium Chloride (Sodium Chloride 0.9%) 1,000 mls @ 999 mls/hr IV .Q1H1M STA Stop: 07/07/18 17:09 Methylprednisolone (Solu-Medrol) 40 mg IVP Q12 SILVIA Last Admin: 07/07/18 10:23 Dose: 40 mg Pantoprazole Sodium (Protonix Inj) 40 mg IVP DAILY [facility] Last Admin: 07/07/18 10:24 Dose: 40 mg - Labs Labs: 07/07/18 03:30 07/07/18 03:30 PT 12.2 SECONDS (9.4-12.5) 07/06/18 15:00 INR 1.07 07/06/18 15:00 APTT 30.7 Seconds (25.1-36.5) 07/06/18 15:00 Attending/Attestation - Attestation I have personally seen and examined this patient.: Yes I have fully participated in the care of the patient.: Yes I have reviewed all pertinent clinical information, including history, physical exam and plan: Yes Notes (Text): 07/07/18 16:35 attending note; Patient seen and examined with resident in ICU. Patient is intubated. Vitals stable. She and is afebrile and nontoxic. Patient is a 88 year old male with PMHx of CHF, HTN, Pulm HTN, COPD, NSTEMI, prostate ca, Parkinson's disease, gait instability presents to ER with altered mentation. hypercapnic respiratory failure; currently intubated. Weaning protol per ICU. CT head Is negative. right-sided pneumonia; chest x-ray howed diffuse alveolar infiltrates. ID evaluation appreciated. Continue meropenem, levofloxacin and vancomycin. continue IV Solu-Medrol. GI and DVT prophylaxis. Monitor patient closely. Case discussed with power of trust and estates attorney Matt Alex in detail today.
[2018-07-07] MEDS ORDERED: Midazolam 100 mg/100ml in NS 100 MG/100 ML SOL IV PRN (09:18)
--- NOTE | 2018-07-07 09:47 | CP.PCM.PN ---
Subjective - Date & Time of Evaluation Date of Evaluation: 07/07/18 Time of Evaluation: 08:10 - Subjective Subjective: Patient seen and examined at bedside. Remains intubated, sedated. Objective - Vital Signs/Intake and Output Vital Signs (last 24 hours): Temp Pulse Resp BP Pulse Ox 98.3 F 54 L 20 138/70 100 07/06/18 20:53 07/07/18 06:00 07/06/18 20:53 07/07/18 02:00 07/07/18 02:00 Intake and Output: 07/07/18 07/07/18 06:59 18:59 Intake Total 970 Output Total 700 Balance 270 - Medications Medications: Current Medications Albuterol/Ipratropium (Duoneb 3 Mg/0.5 Mg (3 Ml) Ud) 3 ml IH [id number] SILVIA Last Admin: 07/07/18 07:52 Dose: 3 ml Heparin Sodium (Porcine) (Heparin) 5,000 units SC Q8 SILVIA; Protocol Last Admin: 07/07/18 06:51 Dose: 5,000 units Levofloxacin/Dextrose (Levaquin 750mg) 750 mg in 150 mls @ 100 mls/hr IVPB DAILY SILVIA; Protocol Last Admin: 07/06/18 22:05 Dose: 100 mls/hr Meropenem (Merrem Iv 1 Gm Premix) 1 gm in 50 mls @ 100 mls/hr IVPB Q12 SILVIA; Protocol Last Admin: 07/06/18 22:04 Dose: 100 mls/hr Sodium Chloride (Sodium Chloride 0.9%) 1,000 mls @ 75 mls/hr IV .[id number] SILVIA Last Admin: 07/06/18 22:03 Dose: 75 mls/hr Propofol (Diprivan) 1,000 mg in 100 mls @ 2.558 mls/hr IV .Q24H PRN; Protocol PRN Reason: TITRATE PER MD ORDER Last Titration: 07/07/18 06:00 Dose: 0 mcg/kg/min, 0 mls/hr Vancomycin HCl (Vancomycin 1gm) 1 gm in 250 mls @ 167 mls/hr IVPB Q12 SILVIA; Protocol Midazolam 100 mg/100ml in NS (Midazolam 100 Mg/100ml In Ns) 100 mg in 100 mls @ 2 mls/hr IV .Q24H PRN; Protocol PRN Reason: Sedation Methylprednisolone (Solu-Medrol) 40 mg IVP Q12 [facility] Last Admin: 07/06/18 22:04 Dose: 40 mg Pantoprazole Sodium (Protonix Inj) 40 mg IVP DAILY SILVIA - Labs Labs: 07/07/18 03:30 07/07/18 03:30 PT 12.2 SECONDS (9.4-12.5) 07/06/18 15:00 INR 1.07 07/06/18 15:00 APTT 30.7 Seconds (25.1-36.5) 07/06/18 15:00 - Constitutional Appears: No Acute Distress, Cachectic, Chronically Ill - Head Exam Head Exam: NORMAL INSPECTION - Eye Exam Eye Exam: Normal appearance - ENT Exam ENT Exam: Mucous Membranes Dry - Respiratory Exam Respiratory Exam: Decreased Breath Sounds, NORMAL BREATHING PATTERN - Cardiovascular Exam Cardiovascular Exam: REGULAR RHYTHM, +S1, +S2 - GI/Abdominal Exam GI & Abdominal Exam: Soft, Normal Bowel Sounds - Extremities Exam Extremities Exam: Pedal Edema - Neurological Exam Additional comments: intubated, sedated Assessment and Plan - Assessment and Plan (Free Text) Assessment: Patient is 88yo male with PMHx CHF, HTN, Pulm HTN, COPD, prostate ca, Parkinson's disease admitted with hypercapnic resp failure, PNA, severe sepsis Severe Sepsis Hypercapnic Resp failure PNA CHF Pulm HTN Hx Prostate Ca - currently afebrile, BP stable, comfortable in NAD, intubated, sedated - labs, imaging, chart reviewed - cultures pending, on broad spectrum abx Recommend: - cont with vent support, low tidal volume ventilation, titrate FiO2, decrease RR, daily CXR, ABG, sedation vacation - Follow up cultures, sputum culture, Urine Lg, Strep, Check Procal - follow up ID - cont with Merrem, Vanco, Azithro - IVF hydration - ECHO - Versed for sedation as needed - GI ppx - DVT ppx - Goals of care discussion with HCP/POA Critical care time 40 minutes
--- NOTE | 2018-07-07 09:52 | CT ---
Date of service: 07/06/2018 PROCEDURE: CT HEAD WITHOUT CONTRAST. HISTORY: lethargy COMPARISON: None available. TECHNIQUE: Axial computed tomography images were obtained through the head/brain without intravenous contrast. Radiation dose: Total exam DLP = 2170 mGy-cm. This CT exam was performed using one or more of the following dose reduction techniques: Automated exposure control, adjustment of the mA and/or kV according to patient size, and/or use of iterative reconstruction technique. FINDINGS: HEMORRHAGE: No intracranial hemorrhage. BRAIN: Study was degraded by motion artifact mild chronic microvascular changes and mild atrophy. No acute findings VENTRICLES: Unremarkable. No hydrocephalus. CALVARIUM: Unremarkable. PARANASAL SINUSES: There is opacification of the left maxillary sinus MASTOID AIR CELLS: Unremarkable as visualized. No inflammatory changes. OTHER FINDINGS: The report concurs with the preliminary report IMPRESSION: No acute intracranial findings
[2018-07-07] MEDS ORDERED: Tiotropium 18 mcg Cap For Inhalation IH SCH (10:00)
[2018-07-07] MEDS: MethylPREDNISolone 40 mg Vial IVP SCH ×2 (10:23→22:25)
[2018-07-07] MEDS: Meropenem IV 1 gm in NS 1 GM/50 ML BAG IVPB SCH ×3 (10:23→22:25)
[2018-07-07] MEDS: Vancomycin 1gm in NS 250ml 1 GM/250 ML BAG IVPB SCH ×2 (10:24→22:26)
[2018-07-07] MEDS: levoFLOXacin 750 mg in D5W 750 MG/150 ML BAG IVPB SCH (10:25)
[2018-07-07] MEDS: Sodium Chloride 0.9% 1,000 ML IV SCH (10:26)
--- NOTE | 2018-07-07 11:15 | RAD ---
Date of service: 07/06/2018 HISTORY: ET placement COMPARISON: Earlier same day FINDINGS: LUNGS: No change in right-sided infiltrate. The endotracheal tube is in satisfactory position between the clavicles and jonathan. Nasogastric tube in satisfactory position PLEURA: Small right pleural effusion CARDIOVASCULAR: Mild cardiomegaly OSSEOUS STRUCTURES: No significant abnormalities. VISUALIZED UPPER ABDOMEN: Normal. OTHER FINDINGS: None. IMPRESSION: No change in right-sided infiltrate. The endotracheal tube is in satisfactory position between the clavicles and jonathan. Nasogastric tube in satisfactory position
--- NOTE | 2018-07-07 11:20 | RAD ---
Date of service: 07/07/2018 HISTORY: intubated on vent COMPARISON: 07/06/2018 FINDINGS: LUNGS: There is a diffuse alveolar infiltrate in the right lung unchanged. The endotracheal tube and nasogastric tube are unchanged PLEURA: No significant pleural effusion identified, no pneumothorax apparent. CARDIOVASCULAR: Normal. OSSEOUS STRUCTURES: No significant abnormalities. VISUALIZED UPPER ABDOMEN: Normal. OTHER FINDINGS: None. IMPRESSION: There is a diffuse alveolar infiltrate in the right lung unchanged. The endotracheal tube and nasogastric tube are unchanged
[2018-07-07] MEDS ORDERED: Magnesium Sulfate 1 gm in D5W 1 GM/100 ML BAG IVPB ONE (14:15)
[2018-07-07] MEDS ORDERED: Sodium Chloride 0.9% 500 ML IV STA (15:02)
--- NOTE | 2018-07-07 15:05 | CP.PCM.CON ---
History of Present Illness - History of Present Illness History of Present Illness: History was taken from Leanne, sister of the rater associate who is the POA of the patient. 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 The patient apparently was not as active for the past week. There was no note of fever at home, no vomiting, no diarrhea. The patient lives with property and casualty insurance agent, no animals in his home. The patient was noted to have leukocytosis and CXR was showing right sided infiltrates. In the ED, the patient was intubated because of his respiratory function and mental status. Full ROS is unobtainable because the patient is intubated. Infectious Diseases consult is requested to further evaluate and manage. Review of Systems - Review of Systems Systems not reviewed;Unavailable: Intubated Past Patient History - Infectious Disease Hx of Infectious Diseases: None - Tetanus Immunizations Tetanus Immunization: Unknown - Past Social History Smoking Status: Never Smoked - CARDIAC Hx Congestive Heart Failure: Yes Hx Hypertension: Yes - PULMONARY Hx Chronic Obstructive Pulmonary Disease (COPD): Yes - NEUROLOGICAL Hx Neurological Disorder: Yes Hx Parkinson's Disease: Yes - HEENT Hx HEENT Problems: Yes Hx Deafness: Yes - RENAL Hx Chronic Kidney Disease: No - ENDOCRINE/METABOLIC Hx Endocrine Disorders: No - HEMATOLOGICAL/ONCOLOGICAL Hx Cancer: Yes (PROSTATE) - INTEGUMENTARY Hx Dermatological Problems: No - MUSCULOSKELETAL/RHEUMATOLOGICAL Hx Arthritis: Yes Hx Falls: Yes - GASTROINTESTINAL Hx Gastrointestinal Disorders: No - GENITOURINARY/GYNECOLOGICAL Hx Genitourinary Disorders: Yes Hx Prostate Problems: Yes - PSYCHIATRIC Hx Emotional Abuse: No Hx Physical Abuse: No Hx Substance Use: No - SURGICAL HISTORY Hx Surgeries: No - ANESTHESIA Hx Anesthesia Reactions: No Hx Malignant Hyperthermia: No Meds Allergies/Adverse Reactions: Allergies Allergy/AdvReac Type Severity Reaction Status Date / Time No Known Allergies Allergy Verified 10/02/16 15:21 - Medications Medications: Current Medications Albuterol/Ipratropium (Duoneb 3 Mg/0.5 Mg (3 Ml) Ud) 3 ml IH [id number] SILVIA Heparin Sodium (Porcine) (Heparin) 5,000 units SC Q8 SILVIA; Protocol Vancomycin HCl (Vancomycin 1gm) 1 gm in 250 mls @ 167 mls/hr IVPB DAILY SILVIA; Protocol Last Admin: 07/06/18 17:47 Dose: 167 mls/hr Meropenem/Sodium Chloride (Merrem Iv 500 Mg/Ns 50 Ml) 500 mg in 50 mls @ 100 mls/hr IVPB Q8 [facility]ILVIA; Protocol Sodium Chloride (Sodium Chloride 0.9%) 1,000 mls @ 100 mls/hr IV .Q10H [facility]IL[facility] Methylprednisolone (Solu-Medrol) 40 mg IVP Q12 [facility] Pantoprazole Sodium (Protonix Inj) 40 mg IVP DAILY SILVIA Physical Exam - Constitutional Appears: Other (intubated, sedated) - Head Exam Head Exam: NORMAL INSPECTION - ENT Exam Additional comments: ET tube in place - Respiratory Exam Respiratory Exam: Decreased Breath Sounds - Cardiovascular Exam Cardiovascular Exam: +S1, +S2 - GI/Abdominal Exam GI & Abdominal Exam: Soft. absent: Tenderness Results - Vital Signs Recent Vital Signs: Last Vital Signs Temp 98.7 F 07/06/18 14:55 Pulse 76 07/06/18 19:50 Resp 20 07/06/18 19:50 BP 110/38 L 07/06/18 19:50 Pulse Ox 100 07/06/18 19:50 - Labs Result Diagrams: 07/07/18 03:30 07/07/18 03:30 Labs: Laboratory Results - last 24 hr 07/06/18 07/06/18 07/06/18 14:40 15:00 15:00 WBC 18.1 H D RBC 4.20 Hgb 13.2 L Hct 42.3 MCV 100.7 MCH 31.4 MCHC 31.2 RDW 16.0 H Plt Count 220 MPV 10.5 Gran % 89.6 H Lymph % (Auto) 5.9 L Armstrong % (Auto) 4.4 Eos % (Auto) 0.0 L Baso % (Auto) 0.1 Gran # 16.23 H Lymph # (Auto) 1.1 L Armstrong # (Auto) 0.8 H Eos # (Auto) 0.0 Baso # (Auto) 0.01 PT 12.2 INR 1.07 APTT 30.7 pCO2 95 H* pO2 61.0 L HCO3 31.6 H ABG pH 7.13 L* ABG Total CO2 34.5 H ABG O2 Saturation 89.6 L ABG Base Excess -0.4 ABG Potassium 3.8 VBG pH VBG pCO2 VBG HCO3 VBG Total CO2 VBG O2 Sat (Calc) VBG Base Excess VBG Potassium Sodium 141.0 Chloride 109.0 H Glucose 124 H Lactate 1.2 FiO2 50.0 Potassium Carbon Dioxide Anion Gap BUN Creatinine Est GFR ( Amer) Est GFR (Non-Af Amer) Random Glucose Calcium Magnesium Total Bilirubin AST ALT Alkaline Phosphatase Lactate Dehydrogenase Total Creatine Kinase Troponin I NT-Pro-B Natriuret Pep Total Protein Albumin Globulin Albumin/Globulin Ratio Arterial Blood Potassium 3.8 Venous Blood Potassium Urine Color Urine Appearance Urine pH Ur Specific [place] Urine Protein Urine Glucose (UA) Urine Ketones Urine Blood Urine Nitrate Urine Bilirubin Urine Urobilinogen Ur Leukocyte Esterase Urine RBC Urine WBC Ur Epithelial Cells Amorphous Sediment Urine Bacteria Digoxin Urine Opiates Screen Urine Methadone Screen Ur Barbiturates Screen Ur Phencyclidine Scrn Ur Amphetamines Screen U Benzodiazepines Scrn U Oth Cocaine Metabols U Cannabinoids Screen Influenza Typ A,B (EIA) 07/06/18 07/06/18 07/06/18 15:00 15:00 15:00 WBC RBC Hgb Hct MCV MCH MCHC RDW Plt Count MPV Gran % Lymph % (Auto) Armstrong % (Auto) Eos % (Auto) Baso % (Auto) Gran # Lymph # (Auto) Armstrong # (Auto) Eos # (Auto) Baso # (Auto) PT INR APTT pCO2 pO2 88 H HCO3 ABG pH ABG Total CO2 ABG O2 Saturation ABG Base Excess ABG Potassium VBG pH 7.11 L* VBG pCO2 103.0 H* VBG HCO3 32.7 H VBG Total CO2 35.9 H VBG O2 Sat (Calc) 96.7 H VBG Base Excess 0.0 VBG Potassium 4.2 Sodium 140.0 144 Chloride 108.0 H 105 Glucose 126 H Lactate 1.7 FiO2 21.0 Potassium 4.3 Carbon Dioxide 33 Anion Gap 10 BUN 15 Creatinine 1.2 Est GFR ( Amer) > 60 Est GFR (Non-Af Amer) 57 Random Glucose 127 H Calcium 8.0 L Magnesium 1.9 Total Bilirubin 0.5 AST 48 ALT 15 Alkaline Phosphatase 107 Lactate Dehydrogenase 649 Total Creatine Kinase 47 Troponin I 0.07 D NT-Pro-B Natriuret Pep 9270 H Total Protein 6.5 Albumin 3.4 Globulin 3.1 Albumin/Globulin Ratio 1.1 Arterial Blood Potassium Venous Blood Potassium 4.2 Urine Color Urine Appearance Urine pH Ur Specific [place] Urine Protein Urine Glucose (UA) Urine Ketones Urine Blood Urine Nitrate Urine Bilirubin Urine Urobilinogen Ur Leukocyte Esterase Urine RBC Urine WBC Ur Epithelial Cells Amorphous Sediment Urine Bacteria Digoxin < 0.4 L Urine Opiates Screen Urine Methadone Screen Ur Barbiturates Screen Ur Phencyclidine Scrn Ur Amphetamines Screen U Benzodiazepines Scrn U Oth Cocaine Metabols U Cannabinoids Screen Influenza Typ A,B (EIA) 07/06/18 07/06/18 07/06/18 16:40 16:40 19:10 WBC RBC Hgb Hct MCV MCH MCHC RDW Plt Count MPV Gran % Lymph % (Auto) Armstrong % (Auto) Eos % (Auto) Baso % (Auto) Gran # Lymph # (Auto) Armstrong # (Auto) Eos # (Auto) Baso # (Auto) PT INR APTT pCO2 100 H* pO2 72.0 L HCO3 33.3 H ABG pH 7.13 L* ABG Total CO2 36.4 H ABG O2 Saturation 95.4 ABG Base Excess 0.9 ABG Potassium 3.8 VBG pH VBG pCO2 VBG HCO3 VBG Total CO2 VBG O2 Sat (Calc) VBG Base Excess VBG Potassium Sodium 141.0 Chloride 109.0 H Glucose 117 H Lactate 0.8 FiO2 100.0 Potassium Carbon Dioxide Anion Gap BUN Creatinine Est GFR ( Amer) Est GFR (Non-Af Amer) Random Glucose Calcium Magnesium Total Bilirubin AST ALT Alkaline Phosphatase Lactate Dehydrogenase Total Creatine Kinase Troponin I NT-Pro-B Natriuret Pep Total Protein Albumin Globulin Albumin/Globulin Ratio Arterial Blood Potassium 3.8 Venous Blood Potassium Urine Color Dark yellow Urine Appearance Slight-cloudy Urine pH 5.5 Ur Specific [place] >= 1.030 Urine Protein 100 H Urine Glucose (UA) Negative Urine Ketones 15 H Urine Blood Trace-lysed H Urine Nitrate Negative Urine Bilirubin Small H Urine Urobilinogen 1.0 H Ur Leukocyte Esterase Trace H Urine RBC 1 - 3 Urine WBC 1 - 3 Ur Epithelial Cells 0 - 2 Amorphous Sediment Few Urine Bacteria Trace Digoxin Urine Opiates Screen Urine Methadone Screen Ur Barbiturates Screen Ur Phencyclidine Scrn Ur Amphetamines Screen U Benzodiazepines Scrn U Oth Cocaine Metabols U Cannabinoids Screen Influenza Typ A,B (EIA) Negative for flu a/b 07/06/18 19:10 WBC RBC Hgb Hct MCV MCH MCHC RDW Plt Count MPV Gran % Lymph % (Auto) Armstrong % (Auto) Eos % (Auto) Baso % (Auto) Gran # Lymph # (Auto) Armstrong # (Auto) Eos # (Auto) Baso # (Auto) PT INR APTT pCO2 pO2 HCO3 ABG pH ABG Total CO2 ABG O2 Saturation ABG Base Excess ABG Potassium VBG pH VBG pCO2 VBG HCO3 VBG Total CO2 VBG O2 Sat (Calc) VBG Base Excess VBG Potassium Sodium Chloride Glucose Lactate FiO2 Potassium Carbon Dioxide Anion Gap BUN Creatinine Est GFR ( Amer) Est GFR (Non-Af Amer) Random Glucose Calcium Magnesium Total Bilirubin AST ALT Alkaline Phosphatase Lactate Dehydrogenase Total Creatine Kinase Troponin I NT-Pro-B Natriuret Pep Total Protein Albumin Globulin Albumin/Globulin Ratio Arterial Blood Potassium Venous Blood Potassium Urine Color Urine Appearance Urine pH Ur Specific [place] Urine Protein Urine Glucose (UA) Urine Ketones Urine Blood Urine Nitrate Urine Bilirubin Urine Urobilinogen Ur Leukocyte Esterase Urine RBC Urine WBC Ur Epithelial Cells Amorphous Sediment Urine Bacteria Digoxin Urine Opiates Screen Negative Urine Methadone Screen Negative Ur Barbiturates Screen Negative Ur Phencyclidine Scrn Negative Ur Amphetamines Screen Negative U Benzodiazepines Scrn Negative U Oth Cocaine Metabols Negative U Cannabinoids Screen Negative Influenza Typ A,B (EIA) Assessment & Plan - Assessment and Plan (Free Text) Plan: Assessment Severe sepsis with ventilator-dependent respiratory failure and acute toxic- metabolic encephalopathy due to right sided severe pneumonia CAD chronic CHF HTN COPD pulmonary HTN Parkinson's disease Plan Started the patient on Vancomycin, Merrem and Levaquin pending blood, sputum cx, urine Legionella Ag, PCT; reviewed CXR will monitor clinically patient is in critical condition
[2018-07-07] MEDS ORDERED: Sodium Chloride 0.9% 1,000 ML IV STA ×2 (15:40→16:09)
[2018-07-07 20:37] LABS: GRAN # 13.94 (1.4-6.5); GRAN % 92.5 % (50.0-68.0); HEMOGLOBIN 11.6 g/dL (14.0-18.0); LYMPH # 0.4 (1.2-3.4); LYMPH % 2.7 % (22.0-35.0); MEAN CELL VOLUME 97.1 fl (80.0-105.0); MEAN CORPUSCULAR HEMOGLOBIN 30.7 pg (25.0-35.0); MEAN CORPUSCULAR HGB CONC 31.6 g/dl (31.0-37.0); MEAN PLATELET VOLUME 11.1 fl (7.0-11.0); MONO # 0.7 (0.1-0.6); MONO % 4.8 % (1.0-6.0); RBC 3.78 10^6/uL (3.5-6.1); RED CELL DISTRIBUTION WIDTH 15.9 % (11.5-14.5); WHITE BLOOD COUNT 15.1 10^3/ul (4.5-11.0)
[2018-07-07 21:23] LABS: BLOOD UREA NITROGEN 22 mg/dL (7-21); GFR NON-AFRICAN AMERICAN > 60
[2018-07-07 21:24] LABS: ALBUMIN 2.6 g/dL (3.0-4.8); ALT/SGPT 35 U/L (7-56); AST/SGOT 26 U/L (17-59); CALCIUM 7.6 mg/dL (8.4-10.5)
[2018-07-07 21:25] LABS: TROPONIN I 0.12 ng/mL
--- NOTE | 2018-07-08 00:23 | CON ---
DATE: 07/07/2018 SERVICE: CARDIOLOGY REASON FOR DICTATION: Covering Dr. Nasir Justice. REASON FOR CONSULTATION: Coronary artery disease, admitted with altered mental status, status post intubated respiratory failure. BRIEF CLINICAL HISTORY: This is an 88-year-old male with past medical history significant for pulmonary hypertension, atrial fibrillation, chronic coronary artery disease, COPD, BPH, CHF, admitted with altered mental status requiring intubation. The patient is now on vent, unable to get any history. PAST MEDICAL HISTORY: Significant for Parkinson disease, pulmonary hypertension, atrial fibrillation, coronary artery disease, COPD, BPH and CHF. ALLERGIES: NO KNOWN DRUG ALLERGY. CURRENT MEDICATIONS: The patient at home was taking Remeron, Protonix, metoprolol, isosorbide dinitrate, Flomax, carbidopa, Lipitor. SOCIAL HISTORY: Denies smoking. Denies any history of alcohol abuse. RECENT CARDIAC WORKUP: The history of documented coronary artery disease, history of renal insufficiency, history of chronic atrial fibrillation, history of moderate aortic stenosis, history of hypertension. Most recently, the patient had an echocardiography on 08/30/2016 that revealed ejection fraction 55% to 60%, RV function mildly reduced, severe aortic stenosis, trace to mild aortic regurgitation, mild mitral regurgitation, moderate tricuspid regurgitation, RV systolic pressure of 63 consistent with pulmonary hypertension dated 08/31/2016. Peak gradient across the aortic valve at that time was 58 mmHg, consistent with severe aortic stenosis, trace to mild aortic regurgitation. Prior to that, the patient had an echo in 12/14/2014, ejection fraction 55%, [id number] aortic stenosis at that time. The patient had a cardiac catheterization on 12/15/2014, at that time, the patient presented bcl-EX-[id number] myocardial infarction, revealed nonobstructive coronary artery disease, limited on the circumflex 50% to 60% disease, ejection fraction 65%, EDP within the range of 18 to 20 dated 12/15/2014. History of paroxysmal atrial fibrillation, history of rhabdomyolysis , history of chronic renal insufficiency. REVIEW OF SYSTEMS: As per HPI. CURRENT MEDICATIONS AT HOME: The patient is taking Flomax, MiraLax, metoprolol, isosorbide dinitrate, carbidopa, atorvastatin. PHYSICAL EXAMINATION: VITAL SIGNS: Temperature afebrile, heart rate 54, blood pressure 138/87 . HEENT: PERRLA. Extraocular muscles intact. NECK: Supple. No carotid bruits or thyromegaly. CHEST: Clear to auscultation. HEART: S1 and S2, regular. ABDOMEN: Soft. EXTREMITIES: Clubbing and cyanosis negative. LABORATORY DATA: WBC 16.8, hemoglobin 12.3, hematocrit 39, platelet count 194. Chemistry shows sodium 136, potassium 4.5, chloride 105, carbon dioxide 25, anion gap of 12, BUN 19, creatinine 1.1. Troponin 0.11. IMPRESSION: An 88-year-old male with past medical history significant for paroxysmal atrial fibrillation, status post cardiac catheterization, nonobstructive coronary artery disease in the past, aortic stenosis, admitted with altered mental status, history of Parkinson's disease. So far, troponin remains in indeterminate range, history of chronic renal insufficiency in the past, intubated, moderate to severe aortic stenosis. RECOMMENDATIONS: We will repeat echo, lipid profile, TSH, hemoglobin A1c. We will monitor with you and transfer care tomorrow to Dr. Justice. Admitted with possible sepsis, altered mental status, Parkinson disease. Treat aggressively. We will continue Lovenox 1 mg/kg, try to extubate the patient. Once extubated, reassess and further recommendations will be made depending on the hospital course. Follow up serial CPK, troponin. Rule out early pneumonia, rule out sepsis. Thank you Dr. Butt for providing us the opportunity in taking care of the patient, Ankur Nino. Duke Alfredo MD
[2018-07-08] MEDS: Albuterol-Ipratrop 3 mg / 0.5 (3 ml) UD IH SCH ×4 (01:54→19:20)
[2018-07-08] MEDS: Sodium Chloride 0.9% 1,000 ML IV SCH ×2 (05:26→18:39)
[2018-07-08] MEDS: Meropenem IV 1 gm in NS 1 GM/50 ML BAG IVPB SCH ×3 (05:27→22:14)
[2018-07-08 05:47] LABS: ARTERIAL BLOOD GAS HCO3 24.7 mmol/L (21-28); ARTERIAL BLOOD GAS O2 CAPACITY 15.3 mL/dl (16-24); ARTERIAL BLOOD GAS O2 CONTENT 15.2 ML/dl (15-23); ARTERIAL BLOOD GAS O2 SAT 99.4 % (95-98); ARTERIAL BLOOD GAS PCO2 39 mm/Hg (35-45); ARTERIAL BLOOD GAS PH 7.41 (7.35-7.45); ARTERIAL BLOOD GAS TCO2 25.9 mmol.L (22-28)
[2018-07-08 06:14] LABS: GRAN # 12.87 (1.4-6.5); GRAN % 94.2 % (50.0-68.0); HEMOGLOBIN 11.7 g/dL (14.0-18.0); LYMPH # 0.3 (1.2-3.4); LYMPH % 2.3 % (22.0-35.0); MEAN CELL VOLUME 96.6 fl (80.0-105.0); MEAN CORPUSCULAR HGB CONC 32.1 g/dl (31.0-37.0); MEAN PLATELET VOLUME 11.6 fl (7.0-11.0); MONO # 0.5 (0.1-0.6); MONO % 3.5 % (1.0-6.0); RBC 3.77 10^6/uL (3.5-6.1); WHITE BLOOD COUNT 13.7 10^3/ul (4.5-11.0)
[2018-07-08 06:39] LABS: ALBUMIN 2.5 g/dL (3.0-4.8); ALT/SGPT 36 U/L (7-56); AST/SGOT 21 U/L (17-59); BLOOD UREA NITROGEN 22 mg/dL (7-21); CALCIUM 7.6 mg/dL (8.4-10.5); GFR NON-AFRICAN AMERICAN > 60; HDL CHOLESTEROL 37 mg/dL (29-60); LDL CHOLESTEROL < 30 mg/dL (0-129)
--- NOTE | 2018-07-08 07:54 | CP.PCM.PN ---
<Alex Kim - Last Filed: 07/08/18 07:35> Subjective - Date & Time of Evaluation Date of Evaluation: 07/08/18 Time of Evaluation: 07:35 - Subjective Subjective: PGY-2 medicine progress note for Dr Palencia No acute events noted overnight. Patient was intubated and sedated, review of systems could not be attained. He was responsive to sternal rub and spontaneously moved his extremities. Objective - Vital Signs/Intake and Output Vital Signs (last 24 hours): Temp Pulse Resp BP Pulse Ox 98.0 F 52 L 15 105/39 L 99 07/07/18 12:00 07/07/18 22:00 07/07/18 10:50 07/07/18 19:30 07/07/18 19:29 - Medications Medications: Current Medications Albuterol/Ipratropium (Duoneb 3 Mg/0.5 Mg (3 Ml) Ud) 3 ml IH [id number] [facility] Last Admin: 07/08/18 01:54 Dose: 3 ml Heparin Sodium (Porcine) (Heparin) 5,000 units SC Q8 [facility]; Protocol Last Admin: 07/08/18 05:27 Dose: 5,000 units Levofloxacin/Dextrose (Levaquin 750mg) 750 mg in 150 mls @ 100 mls/hr IVPB DAILY [facility]; Protocol Last Admin: 07/07/18 10:25 Dose: 100 mls/hr Sodium Chloride (Sodium Chloride 0.9%) 1,000 mls @ 75 mls/hr IV .[id number] [facility] Last Admin: 07/08/18 05:26 Dose: 75 mls/hr Vancomycin HCl (Vancomycin 1gm) 1 gm in 250 mls @ 167 mls/hr IVPB Q12 [facility]; Protocol Last Admin: 07/07/18 22:26 Dose: 167 mls/hr Meropenem (Merrem Iv 1 Gm Premix) 1 gm in 50 mls @ 100 mls/hr IVPB Q8 [facility]; Protocol Last Admin: 07/08/18 05:27 Dose: 100 mls/hr Methylprednisolone (Solu-Medrol) 40 mg IVP Q12 [facility] Last Admin: 07/07/18 22:25 Dose: 40 mg Pantoprazole Sodium (Protonix Inj) 40 mg IVP DAILY [facility] Last Admin: 10/06/18 10:24 Dose: 40 mg - Labs Labs: 07/08/18 05:00 07/08/18 05:00 PT 12.2 SECONDS (9.4-12.5) 07/06/18 15:00 INR 1.07 07/06/18 15:00 APTT 30.7 Seconds (25.1-36.5) 07/06/18 15:00 - Additional Findings Additional findings: - Constitutional Appears: No Acute Distress, Cachectic, Chronically Ill - Head Exam Head Exam: ATRAUMATIC, NORMAL INSPECTION, NORMOCEPHALIC - Eye Exam Eye Exam: Normal appearance. absent: Conjunctival injection, Scleral icterus - ENT Exam ENT Exam: Mucous Membranes Dry Additional comments: ET tube in place - Respiratory Exam Respiratory Exam: Rales, Rhonchi. absent: Accessory Muscle Use, Clear to Ausculation Bilateral, Wheezes - Cardiovascular Exam Cardiovascular Exam: REGULAR RHYTHM, +S1, +S2, Murmur - GI/Abdominal Exam GI & Abdominal Exam: Soft, Normal Bowel Sounds. absent: Firm, Guarding, Rigid, Tenderness - Rectal Exam Rectal Exam: Deferred - Extremities Exam Extremities Exam: absent: Pedal Edema - Neurological Exam Additional comments: sedated - Psychiatric Exam Additional comments: sedated - Skin Skin Exam: Dry, Intact, Pallor, Pallor Assessment and Plan - Assessment and Plan (Free Text) Plan: 88 yo male PMHx CHF, HTN, Pulm HTN, COPD, NSTEMI, prostate ca, Parkinson's disease presents to ER with altered mentation. ABG suggestive of hypercapnic respiratory failure. Patient intubated and placed on vent. Transferred to MICU for further management of severe sepsis with acute toxic metabolic encephalopathy likely secondary to severe right sided pneuomonia Plan: ID -likely CAP vs aspiration pna -empiric abx Vancomycin, Levaquin and Merrem -procalcitonin elevated 2.61 -f/u Legionella -blood cultures 07/06 negative up to date -sputum culture 07/07 negative -flu negative -f/u urine cx -aspiration precautions -ID Dr. Pastrana consulted * Started the patient on Vancomycin, Merrem and Levaquin Neuro -lethargic and unresponsive on presentation; currently intubated and sedated * Plan is to extubate today 07/08/18 -Head CT unremarkable -negative UDS -maintain HoB above 30 degrees -maintain normothermia Cardio -Hx of CAD, proxysmal AFib, severe aortic stenosis, HTN, last cardiac cath in 11/2014 -1 L bolus NS in the ER; now on NS @ 75 -hold home BP meds [patient has hx of HTN] -proBNP 9270 -maintain MAP > 65 -Cardio Dr. Justice consulted * Discussed with covering cardio Dr Alfredo on 07/08 who stated prophylactic dose of heparin is okay for now - no need for therapeutic lovenox -Lipid profile normal -TSH normal -F/U echo report -Head of bed 30 degrees Pulm -hypercapnic respiratory acidosis -intubated on vent (14, 350, 5, 50) -empiric abx Vancomycin, Levaquin and Merrem -CXR: moderate vascular congestion and extensive alveolar infiltrate in the right lung -Solumedrol 40mg ivp q12 -Duoneb 3ml inh q6 -daily weaning trials GI -Protonix 40mg ivp -no acute issues -monitor NGT output Renal -maintain strict Is and Os -insert cruz -avoid nephrotoxic drugs Endo -Accucheck q6h -maintain euglycemia DVT ppx: Heparin 5000u sc q8, SCDs Diet: NPO Discussed with Dr. Palencia <Ashkan Palencia - Last Filed: 07/08/18 15:38> Objective - Vital Signs/Intake and Output Vital Signs (last 24 hours): Temp Pulse Resp BP Pulse Ox 98.0 F 52 L 15 105/39 L 99 07/07/18 12:00 07/07/18 22:00 07/07/18 10:50 07/07/18 19:30 07/07/18 19:29 - Medications Medications: Current Medications Albuterol/Ipratropium (Duoneb 3 Mg/0.5 Mg (3 Ml) Ud) 3 ml IH [id number] [facility] Last Admin: 07/08/18 14:49 Dose: 3 ml Carbidopa/Levodopa/Entacapone (Stalevo 150) 1 tab PO TID [facility] Heparin Sodium (Porcine) (Heparin) 5,000 units SC Q8 [facility]; Protocol Last Admin: 07/08/18 13:21 Dose: 5,000 units Levofloxacin/Dextrose (Levaquin 750mg) 750 mg in 150 mls @ 100 mls/hr IVPB DA TYLER [facility]; Protocol Last Admin: 07/08/18 09:24 Dose: 100 mls/hr Sodium Chloride (Sodium Chloride 0.9%) 1,000 mls @ 75 mls/hr IV .[id number] [facility] Last Admin: 07/08/18 05:26 Dose: 75 mls/hr Vancomycin HCl (Vancomycin 1gm) 1 gm in 250 mls @ 167 mls/hr IVPB Q12 [facility]; Protocol Last Admin: 07/08/18 09:23 Dose: 167 mls/hr Meropenem (Merrem Iv 1 Gm Premix) 1 gm in 50 mls @ 100 mls/hr IVPB Q8 [facility]; Protocol Last Admin: 07/08/18 13:22 Dose: 100 mls/hr Methylprednisolone (Solu-Medrol) 20 mg IVP Q12 [facility] Mirtazapine (Remeron) 15 mg PO HS [facility] Pantoprazole Sodium (Protonix Inj) 40 mg IVP DAILY [facility] Last Admin: 07/08/18 09:24 Dose: 40 mg Pramipexole Dihydrochloride (Mirapex) 1 mg PO TID [facility] - Labs Labs: 07/08/18 05:00 07/08/18 05:00 PT 12.2 SECONDS (9.4-12.5) 07/06/18 15:00 INR 1.07 07/06/18 15:00 APTT 30.7 Seconds (25.1-36.5) 07/06/18 15:00 Attending/Attestation - Attestation I have personally seen and examined this patient.: Yes I have fully participated in the care of the patient.: Yes I have reviewed all pertinent clinical information, including history, physical exam and plan: Yes Notes (Text): 07/08/18 15:33 attending note; Patient seen and examined with resident in ICU. Patient is intubated. Patient is alert. Opens eyes for commands. Vitals stable. Patient is afebrile and nontoxic. Sedation stopped. Possible weaning today. Patient is a 88 year old male with PMHx of CHF, HTN, Pulm HTN, COPD, NSTEMI, prostate ca, Parkinson's disease, gait instability presents to ER with altered mentation. hypercapnic respiratory failure; resolved. currently intubated. Weaning later today. right-sided pneumonia; chest x-ray howed diffuse alveolar infiltrates. ID evaluation appreciated. Continue meropenem, levofloxacin and vancomycin. continue IV Solu-Medrol. GI and DVT prophylaxis. Case discussed with patient's niece elvia Smith in detail yesterday ([phone]). Patient needs is currently [place] of country. She will be back on July 12.
[2018-07-08] MEDS: Vancomycin 1gm in NS 250ml 1 GM/250 ML BAG IVPB SCH ×2 (09:23→22:16)
[2018-07-08] MEDS: levoFLOXacin 750 mg in D5W 750 MG/150 ML BAG IVPB SCH (09:24)
[2018-07-08] MEDS: MethylPREDNISolone 40 mg Vial IVP SCH ×2 (09:24→22:15)
--- NOTE | 2018-07-08 10:10 | CP.PCM.PN ---
Subjective - Date & Time of Evaluation Date of Evaluation: 07/08/18 Time of Evaluation: 08:10 - Subjective Subjective: Patient seen and examined on rounds. Pt was awake, alert, following commands, placed on CPAP trial for 45 minutes, did well, subsequently extubated to 2LNC, sat 94%, overall doing well. NO Major complaints Objective - Vital Signs/Intake and Output Vital Signs (last 24 hours): Temp Pulse Resp BP Pulse Ox 98.0 F 52 L 15 105/39 L 99 07/07/18 12:00 07/07/18 22:00 07/07/18 10:50 07/07/18 19:30 07/07/18 19:29 - Medications Medications: Current Medications Albuterol/Ipratropium (Duoneb 3 Mg/0.5 Mg (3 Ml) Ud) 3 ml IH [id number] [facility] Last Admin: 07/08/18 07:35 Dose: 3 ml Heparin Sodium (Porcine) (Heparin) 5,000 units SC Q8 [facility]; Protocol Last Admin: 07/08/18 05:27 Dose: 5,000 units Levofloxacin/Dextrose (Levaquin 750mg) 750 mg in 150 mls @ 100 mls/hr IVPB DAILY [facility]; Protocol Last Admin: 07/08/18 09:24 Dose: 100 mls/hr Sodium Chloride (Sodium Chloride 0.9%) 1,000 mls @ 75 mls/hr IV .[id number] [facility] Last Admin: 07/08/18 05:26 Dose: 75 mls/hr Vancomycin HCl (Vancomycin 1gm) 1 gm in 250 mls @ 167 mls/hr IVPB Q12 [facility]; Protocol Last Admin: 07/08/18 09:23 Dose: 167 mls/hr Meropenem (Merrem Iv 1 Gm Premix) 1 gm in 50 mls @ 100 mls/hr IVPB Q8 [facility]; Protocol Last Admin: 07/08/18 05:27 Dose: 100 mls/hr Methylprednisolone (Solu-Medrol) 40 mg IVP Q12 [facility] Last Admin: 07/08/18 09:24 Dose: 40 mg Pantoprazole Sodium (Protonix Inj) 40 mg IVP DAILY [facility] Last Admin: 07/08/18 09:24 Dose: 40 mg - Labs Labs: 07/08/18 05:00 07/08/18 05:00 PT 12.2 SECONDS (9.4-12.5) 07/06/18 15:00 INR 1.07 07/06/18 15:00 APTT 30.7 Seconds (25.1-36.5) 07/06/18 15:00 - Constitutional Appears: Non-toxic, No Acute Distress, Cachectic, Chronically Ill - Head Exam Head Exam: NORMAL INSPECTION - Eye Exam Eye Exam: Normal appearance - ENT Exam ENT Exam: Mucous Membranes Moist - Neck Exam Neck Exam: Full ROM - Respiratory Exam Respiratory Exam: Decreased Breath Sounds, NORMAL BREATHING PATTERN - Cardiovascular Exam Cardiovascular Exam: REGULAR RHYTHM, +S1, +S2 - GI/Abdominal Exam GI & Abdominal Exam: Soft, Normal Bowel Sounds - Extremities Exam Extremities Exam: Pedal Edema - Neurological Exam Neurological Exam: Alert, Awake - Psychiatric Exam Psychiatric exam: Normal Affect - Skin Skin Exam: Normal Color, Warm Assessment and Plan - Assessment and Plan (Free Text) Assessment: Patient is 88yo male with PMHx CHF, HTN, Pulm HTN, COPD, prostate ca, Parkinson's disease admitted with hypercapnic resp failure, PNA, severe sepsis. This morning placed on CPAP trial, awake, alert, following commands, subsequently extubated, tolerated well. Severe Sepsis Hypercapnic Resp failure PNA CHF Pulm HTN Hx Prostate Ca - currently afebrile, BP stable, comfortable in NAD, on 2LNC sat 95% - labs, imaging, chart reviewed - cultures pending, on broad spectrum abx Recommend: - supp o2 as needed, duonebs PRN, goal sat 90% - Follow up cultures, sputum culture, Urine Lg, Strep, Check Procal - follow up ID - cont with Merrem, Vanco, Levaquin - IVF hydration - ECHO - GI ppx - DVT ppx - Goals of care discussion with HCP/POA - Monitor in MICU Critical care time 30 minutes
--- NOTE | 2018-07-08 10:47 | RAD ---
Date of service: 07/08/2018 HISTORY: intubated on vent COMPARISON: 07/07/2018 FINDINGS: LUNGS: There is a diffuse infiltrate in the right lung and a small right effusion. Unchanged. Endotracheal and nasogastric tubes in satisfactory position PLEURA: No significant pleural effusion identified, no pneumothorax apparent. CARDIOVASCULAR: Normal. OSSEOUS STRUCTURES: No significant abnormalities. VISUALIZED UPPER ABDOMEN: Normal. OTHER FINDINGS: None. IMPRESSION: There is a diffuse infiltrate in the right lung and a small right effusion. Unchanged. Endotracheal and nasogastric tubes in satisfactory position
--- NOTE | 2018-07-08 12:30 | CP.PCM.PN ---
Subjective - Date & Time of Evaluation Date of Evaluation: 07/08/18 Time of Evaluation: 09:30 - Subjective Subjective: No fevers, now extubated, still feels weak but is not in acute distress, still a little groggy. Objective - Vital Signs/Intake and Output Vital Signs (last 24 hours): Temp Pulse Resp BP Pulse Ox 98.0 F 52 L 15 105/39 L 99 07/07/18 12:00 07/07/18 22:00 07/07/18 10:50 07/07/18 19:30 07/07/18 19:29 - Medications Medications: Current Medications Albuterol/Ipratropium (Duoneb 3 Mg/0.5 Mg (3 Ml) Ud) 3 ml IH [id number] [facility] Last Admin: 07/08/18 07:35 Dose: 3 ml Heparin Sodium (Porcine) (Heparin) 5,000 units SC Q8 [facility]; Protocol Last Admin: 07/08/18 05:27 Dose: 5,000 units Levofloxacin/Dextrose (Levaquin 750mg) 750 mg in 150 mls @ 100 mls/hr IVPB DAILY [facility]; Protocol Last Admin: 07/07/18 10:25 Dose: 100 mls/hr Sodium Chloride (Sodium Chloride 0.9%) 1,000 mls @ 75 mls/hr IV .[id number] [facility] Last Admin: 07/08/18 05:26 Dose: 75 mls/hr Vancomycin HCl (Vancomycin 1gm) 1 gm in 250 mls @ 167 mls/hr IVPB Q12 [facility]; Protocol Last Admin: 07/07/18 22:26 Dose: 167 mls/hr Meropenem (Merrem Iv 1 Gm Premix) 1 gm in 50 mls @ 100 mls/hr IVPB Q8 [facility]; Protocol Last Admin: 07/08/18 05:27 Dose: 100 mls/hr Methylprednisolone (Solu-Medrol) 40 mg IVP Q12 [facility] Last Admin: 07/07/18 22:25 Dose: 40 mg Pantoprazole Sodium (Protonix Inj) 40 mg IVP DAILY [facility] Last Admin: 07/07/18 10:24 Dose: 40 mg - Labs Labs: 07/08/18 05:00 07/08/18 05:00 PT 12.2 SECONDS (9.4-12.5) 07/06/18 15:00 INR 1.07 07/06/18 15:00 APTT 30.7 Seconds (25.1-36.5) 07/06/18 15:00 - Constitutional Appears: No Acute Distress, Chronically Ill - Head Exam Head Exam: NORMAL INSPECTION - Respiratory Exam Respiratory Exam: Decreased Breath Sounds - Cardiovascular Exam Cardiovascular Exam: +S1, +S2 - GI/Abdominal Exam GI & Abdominal Exam: Soft. absent: Tenderness Assessment and Plan - Assessment and Plan (Free Text) Plan: Assessment Severe sepsis S/P ventilator-dependent respiratory failure, improving acute toxic-metabolic encephalopathy due to right sided severe pneumonia CAD chronic CHF HTN COPD pulmonary HTN Parkinson's disease Plan continue Vancomycin, Merrem and Levaquin day 2 pending blood, sputum cx, urine Legionella Ag, PCT is 2.61 and we will trend; reviewed CXR will continue to monitor clinically
--- NOTE | 2018-07-08 15:42 | PN ---
DATE: 07/08/2018 REASON FOR DICTATION: Covering Dr. Nasir Justice. REASON FOR CONSULTATION: Coronary artery disease, admitted with altered mental status, status post intubated; respiratory failure; aortic stenosis. SUBJECTIVE: The patient is awake and alert. Feels a lot better. Still being intubated. PHYSICAL EXAMINATION: VITAL SIGNS: Temperature afebrile, heart rate 52, blood pressure 105/39. HEENT: PERRLA. Extraocular muscles intact. NECK: Supple. No carotid bruits. No thyromegaly. CHEST: Clear to auscultation. Loud systolic murmur of aortic valve noted. LABORATORY DATA: Blood workup as follows: WBC 13.7, hemoglobin , hematocrit 36.4, platelet count 196. Chemistry shows sodium 142, potassium 4, chloride 109, carbon dioxide 30, anion gap of 7, BUN 22, creatinine 1.1. IMPRESSION: An 88-year-old male with past medical history significant for paroxysmal atrial fibrillation; status post cardiac catheterization; nonobstructive coronary artery disease in the past; aortic stenosis; admitted with altered mental status; history of Parkinson disease; so far, troponin remains in indeterminate range, borderline; history of prior catheterization admitted with possible sepsis, altered mental status, Parkinson's disease, intubated. RECOMMENDATIONS: Try to wean off vent. Follow up CPK, troponin, rule out pneumonia. Continue antibiotics. Continue DVT prophylaxis. It is possible borderline troponin is secondary to hemodynamic instability. We will follow the trend of the troponin. Once the patient extubated, reassess. We will order echo to assess the severity of the aortic valve. EKG shows normal sinus. We will reassess the patient's condition and follow up the troponin trend and we will make decision regarding invasive versus noninvasive workup. Since the patient had in the past normal coronaries and very minimal to indeterminate range of troponin, possibly we will treat conservatively, but we will get echo, further recommendations and hospital course, we will follow with you and transfer care tomorrow to Dr. Nasir Justice. We will follow up hemoglobin A1c, lipid profile and TSH as well. Thank you Dr. Palencia for providing us the opportunity in taking care of the patient, Ankur Nino. Duke Alfredo MD
[2018-07-08] MEDS: Carbidopa/Levodopa/Entacapone 37.5mg-150mg-200mg PO SCH (17:06)
--- NOTE | 2018-07-08 21:01 | CARD ---
APPROVED REPORT Date of service: 07/07/2018 EXAM: Two-dimensional and M-mode echocardiogram with Doppler and color Doppler. INDICATION HX NSTEMI AND CHF, AMS 2D DIMENSIONS Left Atrium (2D)3.8 (1.6-4.0cm)IVSd1.3 (0.7-1.1cm) LVDd4.0 (3.9-5.9cm)LVOT Diameter2.1 (1.8-2.4cm) PWd1.3 (0.7-1.1cm)LVDs2.6 (2.5-4.0cm) FS (%) 34.8 %LVEF (%)64.6 (>50%) M-Mode DIMENSIONS Aortic Root3.60 (2.2-3.7cm)Aortic Cusp Exc.1.20 (1.5-2.0cm) Aortic Valve AoV Peak Sdshbesf499.0cm/sAoV VTI90.8cmAO Peak GR.58mmHg LVOT Peak Bfuihqwp65.2cm/sLVOT VTI26.60cmAO Mean GR.30mmHg MYLENE (VMAX)0.93af8BEE (VTI)1.01cm2 Mitral Valve MV E Zqvogeox879.0cm/sMV A Fdwnedul313.0cm/sE/A ratio1.3 TDI Lateral E' Peak V6.24cm/sMedial E' Peak V4.21cm/sE/Lateral E'21.5 E/Medial E'31.8 Tricuspid Valve TR Peak Ehhdkhaq113ld/sRAP [id number] Peak Gr.39mmHg AFBF06niHv LEFT VENTRICLE The left ventricle is normal size. There is mild concentric left ventricular hypertrophy. The left ventricular function is normal.EF-65% There is normal LV segmental wall motion. Transmitral Doppler flow pattern is Grade II-pseudonormal filling dynamics. No left ventricle thrombus noted on this study. There is no ventricular septal defect visualized. There is no left ventricular aneurysm. There is no mass noted in the left ventricle. RIGHT VENTRICLE The right ventricle is mildly dilated. There is normal right ventricular wall thickness. The right ventricular systolic function is normal. ATRIA The left atrium size is normal. The right atrium size is normal. The interatrial septum is intact with no evidence for an atrial septal defect. AORTIC VALVE The aortic valve is calcified and displays decreased opening. There is trace aortic regurgitation. There is moderate to severe valvular aortic stenosis. There is no aortic valvular vegetation. MITRAL VALVE The mitral valve is calcified and displays decreased opening. Mitral regurgitation is mild. There is mild mitral valve stenosis. There is no evidence of mitral valve prolapse. TRICUSPID VALVE The tricuspid valve leaflets are thickened , but open well. There is moderate tricuspid regurgitation.RVSP-49 mm of Hg There is no tricuspid valve stenosis. There is no tricuspid valve prolapse or vegetation. PULMONIC VALVE The pulmonic valve is mildly thickened. There is trace pulmonic valvular regurgitation. There is no pulmonic valvular stenosis. GREAT VESSELS The aortic root is normal in size. The ascending aorta is normal in size. The pulmonary artery is normal. The IVC is normal in size and collapses >50% with inspiration. PERICARDIAL EFFUSION There is no pleural effusion. There is no pericardial effusion. <Conclusion> Normal chamber Size. EF-65% There is moderate to severe valvular aortic stenosis. There is trace aortic regurgitation. Mitral regurgitation is mild. There is moderate tricuspid regurgitation.RVSP-49 mm of Hg The IVC is normal in size and collapses >50% with inspiration. There is no pericardial effusion.
[2018-07-09] MEDS: Albuterol-Ipratrop 3 mg / 0.5 (3 ml) UD IH SCH ×4 (01:21→19:27)
[2018-07-09] MEDS: Sodium Chloride 0.9% 1,000 ML IV SCH ×2 (03:10→16:00)
[2018-07-09] MEDS: Meropenem IV 1 gm in NS 1 GM/50 ML BAG IVPB SCH ×3 (05:53→21:58)
[2018-07-09 06:31] LABS: GRAN # 11.76 (1.4-6.5); GRAN % 94.6 % (50.0-68.0); LYMPH # 0.4 (1.2-3.4); LYMPH % 3.2 % (22.0-35.0); MEAN CELL VOLUME 97.2 fl (80.0-105.0); MEAN CORPUSCULAR HEMOGLOBIN 30.6 pg (25.0-35.0); MEAN CORPUSCULAR HGB CONC 31.5 g/dl (31.0-37.0); MEAN PLATELET VOLUME 11.3 fl (7.0-11.0); MONO # 0.3 (0.1-0.6); MONO % 2.2 % (1.0-6.0); RBC 3.92 10^6/uL (3.5-6.1); RED CELL DISTRIBUTION WIDTH 16.3 % (11.5-14.5); WHITE BLOOD COUNT 12.4 10^3/ul (4.5-11.0)
[2018-07-09 07:23] LABS: ALBUMIN 2.8 g/dL (3.0-4.8); ALT/SGPT 19 U/L (7-56); AST/SGOT 25 U/L (17-59); BLOOD UREA NITROGEN 25 mg/dL (7-21); CALCIUM 7.8 mg/dL (8.4-10.5); GFR NON-AFRICAN AMERICAN > 60
[2018-07-09] MEDS: MethylPREDNISolone 40 mg Vial IVP SCH ×2 (10:52→21:57)
[2018-07-09] MEDS: Carbidopa/Levodopa/Entacapone 37.5mg-150mg-200mg PO SCH ×3 (10:52→18:11)
[2018-07-09] MEDS: levoFLOXacin 750 mg in D5W 750 MG/150 ML BAG IVPB SCH (10:52)
[2018-07-09] MEDS: Vancomycin 1gm in NS 250ml 1 GM/250 ML BAG IVPB SCH (10:53)
--- NOTE | 2018-07-09 18:28 | CP.PCM.PN ---
<Mike Richmond - Last Filed: 07/09/18 20:38> Subjective - Date & Time of Evaluation Date of Evaluation: 07/09/18 Time of Evaluation: 07:00 - Subjective Subjective: Mike Richmond DO PGY1 - Internal Medicine [employer] - Hospital Progress Note Pt. seen and examined this morning at bedside. Patient has been stable post extubation. Voicing no complaints at bedside this morning Remainder of 12 system ROS is negative at this time. Objective - Vital Signs/Intake and Output Vital Signs (last 24 hours): Temp Pulse Resp BP Pulse Ox 98.7 F 50 L 21 123/64 94 L 07/09/18 16:28 07/09/18 16:28 07/09/18 16:28 07/09/18 16:28 07/09/18 16:28 Intake and Output: 07/09/18 07/09/18 06:59 18:59 Intake Total 900 Output Total 150 Balance 750 - Medications Medications: Current Medications Albuterol/Ipratropium (Duoneb 3 Mg/0.5 Mg (3 Ml) Ud) 3 ml IH [id number] [facility] Last Admin: 07/09/18 13:47 Dose: 3 ml Carbidopa/Levodopa/Entacapone (Stalevo 150) 1 tab PO TID [facility] Last Admin: 07/09/18 18:11 Dose: 1 tab Heparin Sodium (Porcine) (Heparin) 5,000 units SC Q8 [facility]; Protocol Last Admin: 07/09/18 15:58 Dose: 5,000 units Levofloxacin/Dextrose (Levaquin 750mg) 750 mg in 150 mls @ 100 mls/hr IVPB DAILY [facility]; Protocol Last Admin: 07/09/18 10:52 Dose: 100 mls/hr Sodium Chloride (Sodium Chloride 0.9%) 1,000 mls @ 75 mls/hr IV .[id number] [facility] Last Admin: 07/09/18 16:00 Dose: Not Given Vancomycin HCl (Vancomycin 1gm) 1 gm in 250 mls @ 167 mls/hr IVPB Q12 [facility]; Protocol Last Admin: 07/09/18 10:53 Dose: 167 mls/hr Meropenem (Merrem Iv 1 Gm Premix) 1 gm in 50 mls @ 100 mls/hr IVPB Q8 [facility]; Protocol Last Admin: 07/09/18 15:59 Dose: 100 mls/hr Methylprednisolone (Solu-Medrol) 20 mg IVP Q12 [facility] Last Admin: 07/09/18 10:52 Dose: 20 mg Mirtazapine (Remeron) 15 mg PO HS [facility] Last Admin: 07/08/18 22:15 Dose: 15 mg Pantoprazole Sodium (Protonix Ec Tab) 40 mg PO ACB [facility] Pramipexole Dihydrochloride (Mirapex) 1 mg PO TID [facility] Last Admin: 07/09/18 18:10 Dose: 1 mg - Labs Labs: 07/09/18 06:10 07/09/18 06:10 PT 12.2 SECONDS (9.4-12.5) 07/06/18 15:00 INR 1.07 07/06/18 15:00 APTT 30.7 Seconds (25.1-36.5) 07/06/18 15:00 - Constitutional Appears: Well, Non-toxic, No Acute Distress - Head Exam Head Exam: ATRAUMATIC, NORMOCEPHALIC - ENT Exam ENT Exam: Mucous Membranes Moist - Respiratory Exam Respiratory Exam: Decreased Breath Sounds - Cardiovascular Exam Cardiovascular Exam: RRR, +S1, +S2, Murmur (Aortic Stenosis ) - GI/Abdominal Exam GI & Abdominal Exam: Soft. absent: Tenderness - Extremities Exam Extremities Exam: Normal Inspection - Neurological Exam Neurological Exam: Alert, Awake, CN II-XII Intact - Skin Skin Exam: Dry, Intact, Normal Color, Warm Assessment and Plan - Assessment and Plan (Free Text) Assessment: 88M PMH of CHF, HTN, Pulm HTN, COPD, NSTEMI, Porstate Ca, Parkinsons, Presented to [facility] ED 07/06 w/ AMS and c/o coughing, gurgling and unresponsiveness. Patient was found to have hyeprcapnic respiratory failure subsequently intubated and transferred to MICU for management of severe sepsis w/ acute toxic metabolic encephalopathy 2/2 severe R sided PNA. Patient was extubated 07/08 and transferred to med/surg. Sepsis 2/2 HCAP C/w Merrem, Levaquin DC Vanco Blood Cx 2/2 negative @ three days Sputum Cx - yeast most likely colonizer Legionella negative PCT 2.61 ID following appreciate reccs Encephalopathy Resolving at this time Mental status improving, patient responsive Continue monitoring patient, reorient as needed CT Head negative UDS negative Hx COPD Duonebs PRN Solumedrol Paroxysmal Afib Severe Aortic Stenosis Confirmed on Echo Given poor prognosis palliative care consult may be appropriate HTN: Hypo/Normotensive at this time w/o Rx Continue holding; address as needed Hx Alzhemiers Carbidopa/Levodopa Hx Parkinsons Pamiprexole DVT PPX - Heparin GI PPX - Protonix Patient seen, examined, and discussed w/ attending physician Mike Richmond DO PGy1 - Internal medicine [employer] - Pager [phone] <Monica Richmond R - Last Filed: 07/12/18 07:45> Objective - Vital Signs/Intake and Output Vital Signs (last 24 hours): Temp Pulse Resp BP Pulse Ox 97.6 F 124 H 24 147/105 H 96 07/12/18 00:00 07/12/18 03:05 07/12/18 01:14 07/12/18 01:15 07/12/18 00:20 - Medications Medications: Current Medications Albuterol/Ipratropium (Duoneb 3 Mg/0.5 Mg (3 Ml) Ud) 3 ml IH [id number] [facility]IA Last Admin: 07/12/18 02:47 Dose: 3 ml Carbidopa/Levodopa/Entacapone (Stalevo 150) 1 tab PO TID [facility] Last Admin: 07/11/18 20:18 Dose: Not Given Guaifenesin (Mucinex La) 600 mg PO BID [facility] Last Admin: 07/11/18 20:17 Dose: Not Given Meropenem (Merrem Iv 1 Gm Premix) 1 gm in 50 mls @ 100 mls/hr IVPB Q8 [facility]; Protocol Last Admin: 07/12/18 06:06 Dose: 100 mls/hr Pantoprazole Sodium (Protonix 40mg Ivpb) 40 mg in 100 mls @ 20 mls/hr IVPB .Q5H [facility] Last Admin: 07/12/18 06:11 Dose: 20 mls/hr Amiodarone HCl/Dextrose (Nexterone 360 Mg In D5w 200 Ml (Premix)) 360 mg in 200 mls @ 16.667 mls/hr IV .Q12H SIL[facility]IA; Protocol Last Admin: 07/12/18 04:01 Dose: 16.667 mls/hr Levofloxacin/Dextrose (Levaquin 750mg) 750 mg in 150 mls @ 100 mls/hr IVPB DAILY [facility]; Protocol Vancomycin HCl (Vancomycin 1gm) 1 gm in 250 mls @ 167 mls/hr IVPB Q12H SIL[facility]IA; Protocol Mirtazapine (Remeron) 15 mg PO HS [facility] Last Admin: 07/11/18 22:14 Dose: Not Given Pramipexole Dihydrochloride (Mirapex) 1 mg PO TID [facility] Last Admin: 07/11/18 20:16 Dose: Not Given - Labs Labs: 07/12/18 05:30 07/12/18 05:30 PT 13.1 SECONDS (9.4-12.5) H 07/11/18 17:58 INR 1.15 07/11/18 17:58 APTT 33.2 Seconds (25.1-36.5) 07/11/18 17:58 Attending/Attestation - Attestation I have personally seen and examined this patient.: Yes I have fully participated in the care of the patient.: Yes I have reviewed all pertinent clinical information, including history, physical exam and plan: Yes Notes (Text): Patient seen and examined by me with resident at 12PM on 07/09/18 with resident. Case including discharge plan discussed with resident. Agree with above with following additions/corrections. Patient is a 88-year-old male with past medical history significant for CHF, hypertension, pulmonary hypertension, COPD, coronary artery disease, prostate cancer, paroxysmal atrial fibrillation, BPH, and Parkinson's disease and that presented to the emergency room with unresponsiveness. Patient states he is feeling better today. He denies any sore throat or difficulty swallowing. Patient denies any shortness of breath or chest pain. No nausea, vomiting, or abdominal pain. No fevers or chills. No headaches or dizziness. No dysuria. Patient states he is tolerating diet. Patient is hard of hearing. Physical exam: Gen: Awake and alert sitting up in bed in no acute distress HEENT: Normocephalic, atraumatic. Extraocular muscles intact, pupils equal and reactive. No scleral icterus. Oropharynx is pink and moist. No pharyngeal erythema or exudate appreciated. Neck is supple. Patient hard of hearing Cardiovascular: Normal rhythm with intermittent irregular beats. Normal S1, S2. Positive systolic murmur. No rubs or gallops appreciated Pulmonary: Normal respiratory effort. Decreased breath sounds throughout No rhonchi, rales, or wheezing appreciated. Gastrointestinal: Soft. Nondistended. Positive generalized tenderness. Positive bowel sounds all 4 quadrants, no guarding. Musculoskeletal: Moves all extremities. No calf tenderness. Positive bilateral lower extremity edema Central nervous system: AAO x 3. Dermatologic: Skin warm and dry. Assessment and plan: Patient is a 88-year-old male with past medical history significant for CHF, hypertension, pulmonary hypertension, COPD, NSTEMI, prostate cancer, paroxysmal atrial fibrillation, BPH, and Parkinson's disease and that presented to the emergency room with unresponsiveness. 1. Sepsis secondary to right-sided pneumonia. Hypercapnic respiratory failure, extubated on 07/08/18. ID following, recommendations appreciated. Continue meropenem and Levaquin. Patient afebrile. Leukocytosis improving. Cultures with no growth. Sputum culture positive for yeast. Urine for Legionella negative. Procalcitonin 2.61. Chest x-ray 07/08/2018 per radiology showed diffuse infiltrate in the right lung and a small right effusion, unchanged. 2. Toxic metabolic encephalopathy. Resolving. Secondary to sepsis and right- sided pneumonia. Head CT per radiologist shows no acute intracranial findings. Continue supportive care. 3. Paroxysmal atrial fibrillation. Severe aortic stenosis. 2-D echo per handkerchief presser shows normal chamber size with EF of 65%, moderate to severe valvular aortic stenosis, trace aortic regurgitation, mitral regurgitation is mild, moderate tricuspid regurgitation, no pericardial effusion. Cardiology following, recommendations appreciated. Will need to discuss with POA options of TAVR and cardiac cath. Palliative care consulted, follow-up recommendations 4. COPD exacerbation. Continue nebulizer treatments. Continue Solu-Medrol. Continue O2 via nasal cannula as needed. 5. Parkinson's. Continue Carbidopa/levodopa/entacapone. Continue Remeron. Continue Mirapex 6. DVT prophylaxis. Heparin subcutaneous. 7. Patient is currently a full code. Palliative care consulted Case was discussed in detail with the patient regarding current diagnosis and treatment plan.
--- NOTE | 2018-07-09 19:00 | CP.PCM.PN ---
Subjective - Date & Time of Evaluation Date of Evaluation: 07/09/18 Time of Evaluation: 10:20 - Subjective Subjective: No fevers, not in distress, breathing ok. No nausea, no diarrhea. Objective - Vital Signs/Intake and Output Vital Signs (last 24 hours): Temp Pulse Resp BP Pulse Ox 98.7 F 50 L 21 123/64 94 L 07/09/18 16:28 07/09/18 16:28 07/09/18 16:28 07/09/18 16:28 07/09/18 16:28 Intake and Output: 07/09/18 07/09/18 06:59 18:59 Intake Total 900 1515 Output Total 150 300 Balance 750 1215 - Medications Medications: Current Medications Albuterol/Ipratropium (Duoneb 3 Mg/0.5 Mg (3 Ml) Ud) 3 ml IH [id number] SILVIA Last Admin: 07/09/18 13:47 Dose: 3 ml Carbidopa/Levodopa/Entacapone (Stalevo 150) 1 tab PO TID [facility] Last Admin: 07/09/18 18:11 Dose: 1 tab Heparin Sodium (Porcine) (Heparin) 5,000 units SC Q8 SIL[facility]IA; Protocol Last Admin: 07/09/18 15:58 Dose: 5,000 units Levofloxacin/Dextrose (Levaquin 750mg) 750 mg in 150 mls @ 100 mls/hr IVPB DAILY [facility]; Protocol Last Admin: 07/09/18 10:52 Dose: 100 mls/hr Sodium Chloride (Sodium Chloride 0.9%) 1,000 mls @ 75 mls/hr IV .[id number] [facility]IA Last Admin: 07/09/18 16:00 Dose: Not Given Vancomycin HCl (Vancomycin 1gm) 1 gm in 250 mls @ 167 mls/hr IVPB Q12 [facility]; Protocol Last Admin: 07/09/18 10:53 Dose: 167 mls/hr Meropenem (Merrem Iv 1 Gm Premix) 1 gm in 50 mls @ 100 mls/hr IVPB Q8 [facility]; Protocol Last Admin: 07/09/18 15:59 Dose: 100 mls/hr Methylprednisolone (Solu-Medrol) 20 mg IVP Q12 [facility] Last Admin: 07/09/18 10:52 Dose: 20 mg Mirtazapine (Remeron) 15 mg PO HS [facility] Last Admin: 10/07/18 22:15 Dose: 15 mg Pantoprazole Sodium (Protonix Ec Tab) 40 mg PO ACB [facility] Pramipexole Dihydrochloride (Mirapex) 1 mg PO TID [facility] Last Admin: 07/09/18 18:10 Dose: 1 mg - Labs Labs: 07/09/18 06:10 07/09/18 06:10 PT 12.2 SECONDS (9.4-12.5) 07/06/18 15:00 INR 1.07 07/06/18 15:00 APTT 30.7 Seconds (25.1-36.5) 07/06/18 15:00 - Constitutional Appears: No Acute Distress, Chronically Ill - Head Exam Head Exam: NORMAL INSPECTION - Respiratory Exam Respiratory Exam: Decreased Breath Sounds - Cardiovascular Exam Cardiovascular Exam: +S1, +S2 - GI/Abdominal Exam GI & Abdominal Exam: Soft. absent: Tenderness Assessment and Plan - Assessment and Plan (Free Text) Plan: Assessment Severe sepsis S/P ventilator-dependent respiratory failure, improving acute toxic-metabolic encephalopathy due to right sided severe pneumonia, slowly improving CAD chronic CHF HTN COPD pulmonary HTN Parkinson's disease Plan continue Merrem and Levaquin day 3 - blood cx are negative and MRSA nares is negative - will d/c Vancomycin; sputum cx is showing yeast which is probably just contamination urine Legionella Ag is negative; PCT is 2.61 and we will trend; reviewed CXR will continue to monitor clinically
[2018-07-10] MEDS: Albuterol-Ipratrop 3 mg / 0.5 (3 ml) UD IH SCH ×4 (02:07→20:45)
[2018-07-10] MEDS: Meropenem IV 1 gm in NS 1 GM/50 ML BAG IVPB SCH ×3 (05:05→21:21)
--- NOTE | 2018-07-10 08:12 | PN ---
DATE: 07/09/2018 CARDIOLOGY FOLLOWUP SUBJECTIVE: The patient is sitting up in bed without shortness of breath. No chest pain. The patient is mildly confused, but there is no dyspnea. PHYSICAL EXAMINATION: VITAL SIGNS: Blood pressure is 135/63, heart rates in the 70s. NECK: Negative JVD. LUNGS: Decreased breath sounds. HEART: Reveals 2/6 systolic ejection murmur. EXTREMITIES: Without change. LABORATORY DATA: Hemoglobin is 12.9. Chemistries: BUN and creatinine are unremarkable. Glucose 156. IMPRESSION: 1. Critical aortic stenosis. 2. Status post respiratory failure. 3. Hypertension. 4. Coronary artery disease. 5. Atrial fibrillation. 6. Borderline elevated troponins. PLAN: Given these findings, the patient is currently hemodynamically stable. I have discussed with Dr. Richmond about trying to delineate how aggressive we will be with this patient. The patient has a power of ribbon lapper tender since he is incapable of giving his own informed consent. We will continue on his present medications. Nasir Justice MD
[2018-07-10] MEDS: levoFLOXacin 750 mg in D5W 750 MG/150 ML BAG IVPB SCH (09:36)
[2018-07-10] MEDS: MethylPREDNISolone 40 mg Vial IVP SCH ×2 (09:37→21:22)
[2018-07-10] MEDS: Carbidopa/Levodopa/Entacapone 37.5mg-150mg-200mg PO SCH ×3 (09:37→17:33)
[2018-07-10] MEDS: Pantoprazole 40 mg EC Tab PO SCH (09:37)
[2018-07-10 10:27] LABS: GRAN # 11.98 (1.4-6.5); GRAN % 92.6 % (50.0-68.0); HEMOGLOBIN 12.7 g/dL (14.0-18.0); LYMPH # 0.6 (1.2-3.4); LYMPH % 4.9 % (22.0-35.0); MEAN CELL VOLUME 97.3 fl (80.0-105.0); MEAN CORPUSCULAR HEMOGLOBIN 30.8 pg (25.0-35.0); MEAN CORPUSCULAR HGB CONC 31.6 g/dl (31.0-37.0); MEAN PLATELET VOLUME 11.1 fl (7.0-11.0); MONO # 0.3 (0.1-0.6); MONO % 2.5 % (1.0-6.0); PLATELET COUNT 227 10^3/uL (120.0-450.0); RBC 4.13 10^6/uL (3.5-6.1); RED CELL DISTRIBUTION WIDTH 16.3 % (11.5-14.5)
[2018-07-10 10:42] LABS: BLOOD UREA NITROGEN 28 mg/dL (7-21)
[2018-07-10 10:43] LABS: ALB/GLOB RATIO 1.1 (1.1-1.8); ALBUMIN 3.3 g/dL (3.0-4.8); ALT/SGPT 18 U/L (7-56); AST/SGOT 25 U/L (17-59); CALCIUM 8.5 mg/dL (8.4-10.5); GFR NON-AFRICAN AMERICAN > 60
--- NOTE | 2018-07-10 10:49 | CP.PCM.CON ---
History of Present Illness - History of Present Illness History of Present Illness: Palliative consult requested by Dr Silvano Richmond Reason: Goals of care /advance care planning 88 yeara old male with history of CHF,COPD, pulmonary HTN and Parkinson's disease who presented to ED 07/06/18 with altered mental status. Patients client care specialist found him gurgling and unresponsive and called EMs. Field Trainer last reported seeing the patient hours earlier.film examiner reported the did not have chills ,fever or pain. Field Trainer reports patent baseline as needing assistance with all ADL's including ambulation> The pait was intubated and manged in ICU, he has since been extubated and transitioned to medical surgical unit EKG: NSR 1st degree AV block, sepal infarct age undetermined ECHO: EF 65%, mod/severe aortic stenosis, mild mitral regurgitation , moderate tricuspid regurgitation pericardial effusion Head CT: negative Chest x ray:Moderate vascular congestion and extensive alveolar infiltrates right lung Labs 07/06:Wbc 18.1, hgb 13.2, Plt 220, Na 144, K3.5, Bun 15, Crt1.2, [id number], Ast48, Alt 15, LDH 649, Troponin.07, BNP 9270, Alb 3.1 Urine essentially negative , blood culture negative , Urine culture with Yeast, H Flu negative PMHx: Parkinson's disease, prostate cancer, CHF, CAD, pulmoary HTN, N STEMI PSH; cardiac cath Social History: Never smoker, no alcohol or drug use. Lives with 24 hour brake repairer air, ED Family History: Non contributory Advance Care Planning: The patient has an Advanced Directive, POA is Teresa Smith [phone]. Review of Systems: As per HPI Past Patient History - Infectious Disease Hx of Infectious Diseases: None - Tetanus Immunizations Tetanus Immunization: Unknown - Past Social History Smoking Status: Never Smoked - CARDIAC Hx Cardiac Disorders: Yes Hx Congestive Heart Failure: Yes Hx Hypertension: Yes - PULMONARY Hx Chronic Obstructive Pulmonary Disease (COPD): Yes Hx Pneumonia: Yes - NEUROLOGICAL Hx Neurological Disorder: Yes Hx Parkinson's Disease: Yes - HEENT Hx HEENT Problems: Yes Hx Deafness: Yes - RENAL Hx Chronic Kidney Disease: No - ENDOCRINE/METABOLIC Hx Endocrine Disorders: No - HEMATOLOGICAL/ONCOLOGICAL Hx Cancer: Yes (prostate) - INTEGUMENTARY Hx Dermatological Problems: No - MUSCULOSKELETAL/RHEUMATOLOGICAL Hx Falls: Yes - GASTROINTESTINAL Hx Gastrointestinal Disorders: No - GENITOURINARY/GYNECOLOGICAL Hx Genitourinary Disorders: Yes Hx Prostate Problems: Yes - PSYCHIATRIC Hx Emotional Abuse: No Hx Physical Abuse: No Hx Substance Use: No - SURGICAL HISTORY Hx Surgeries: No - ANESTHESIA Hx Anesthesia Reactions: No Hx Malignant Hyperthermia: No Meds Allergies/Adverse Reactions: Allergies Allergy/AdvReac Type Severity Reaction Status Date / Time No Known Allergies Allergy Verified 10/02/16 15:21 - Medications Medications: Current Medications Albuterol/Ipratropium (Duoneb 3 Mg/0.5 Mg (3 Ml) Ud) 3 ml IH [id number] SILVIA Last Admin: 07/10/18 07:44 Dose: 3 ml Carbidopa/Levodopa/Entacapone (Stalevo 150) 1 tab PO TID [facility] Last Admin: 07/10/18 09:37 Dose: 1 tab Heparin Sodium (Porcine) (Heparin) 5,000 units SC Q8 [facility]; Protocol Last Admin: 07/10/18 05:05 Dose: 5,000 units Levofloxacin/Dextrose (Levaquin 750mg) 750 mg in 150 mls @ 100 mls/hr IVPB DAILY [facility]; Protocol Last Admin: 07/10/18 09:36 Dose: 100 mls/hr Meropenem (Merrem Iv 1 Gm Premix) 1 gm in 50 mls @ 100 mls/hr IVPB Q8 [facility]; Protocol Last Admin: 07/10/18 05:05 Dose: 100 mls/hr Methylprednisolone (Solu-Medrol) 20 mg IVP Q12 [facility] Last Admin: 07/10/18 09:37 Dose: 20 mg Mirtazapine (Remeron) 15 mg PO HS [facility] Last Admin: 07/09/18 21:57 Dose: 15 mg Pantoprazole Sodium (Protonix Ec Tab) 40 mg PO ACB [facility] Last Admin: 07/10/18 09:37 Dose: 40 mg Pramipexole Dihydrochloride (Mirapex) 1 mg PO TID [facility] Last Admin: 07/10/18 09:37 Dose: 1 mg Results - Vital Signs Recent Vital Signs: Last Vital Signs Temp 97.8 F 07/10/18 08:12 Pulse 55 L 07/10/18 08:12 Resp 18 07/10/18 08:12 BP 131/94 H 07/10/18 08:12 Pulse Ox 90 L 07/10/18 08:12 - Labs Result Diagrams: 07/10/18 10:15 07/10/18 10:15 Labs: Laboratory Results - last 24 hr 07/10/18 10:15 WBC 13.0 H RBC 4.13 Hgb 12.7 L Hct 40.2 L MCV 97.3 MCH 30.8 MCHC 31.6 RDW 16.3 H Plt Count 227 MPV 11.1 H Gran % 92.6 H Lymph % (Auto) 4.9 L [place] % (Auto) 2.5 Eos % (Auto) 0.0 L Baso % (Auto) 0.0 Gran # 11.98 H Lymph # (Auto) 0.6 L [place] # (Auto) 0.3 Eos # (Auto) 0.0 Baso # (Auto) 0.00 Assessment & Plan - Assessment and Plan (Free Text) Assessment: 88 year old male with history of COPD,CHF, HTN who is admitted with AMS which has since resolved, leukocytosis,respiratory failure, SURAJ pneumonia and deconditioning I spoke with patient in the presence of Kenneth NEUMANN. The patient is alert, very hard of hearing. He knows his name and date of . He states that his client care specialist's name is and that his actuarial assistant is Manan Alex. He is able to tell me that his health care surrogate is Teresa that she is no longer living in [place] and now lives in [place]. Patient affirms that he has and Advanced Directive. I reviewed the stipulations of the Directive with him. The directive states that if his condition is incurable/irreversible he does not want life sustaining procedures. I explained that the aortic valve in his heart is severely diseased and that this is irreversible. He verbalized understanding of this. I asked if he wanted CPR/intubation. I explained the ramifications of this procedure. He said he did not and gave the same response when asked a second time. He was willing to complete a POLST DNR/DNI directive with me VM left for health care REKHAATeresapaulette Smith> Time spent with patient in goals of care discussion, 30 minutes Plan: Goals of care and advance care planning, POLST: DNR/DNI Cardio:Currently hemodynamically stable, cardiology following Sepis/Pneumonia: Continue Levaquin and Merrem. Monitor labs BIENVENIDO: Resolved, monitor labs Pulmonary: Duonebs, Solu medrol, monitor chest x ray, O2 therapy
[2018-07-10 11:16] LABS: ATYPICAL LYMPHOCYTE 2 % (0.0-0.0); BAND 2 % (0-2); LYMPHOCYTE 4 % (22.0-35.0); MONOCYTE 1 % (1.0-6.0); NEUTROPHIL 90 % (50.0-70.0); PLATELET ESTIMATE NORMAL (NORMAL)
[2018-07-10 11:17] LABS: ANISOCYTOSIS 1+; OVALOCYTES SLIGHT; POIKILOCYTOSIS SLIGHT; TOXIC GRANULATION SLIGHT
--- NOTE | 2018-07-10 13:28 | PN ---
DATE: 07/10/2018 CARDIOLOGY FOLLOWUP SUBJECTIVE: The patient is in bed, resting comfortably. PHYSICAL EXAMINATION: VITAL SIGNS: Blood pressure is 131/94, heart rate is in the 50s. NECK: Negative JVD. LUNGS: Without rales. HEART: Reveals S1, S2 with III/ systolic ejection murmur. EXTREMITIES: Without edema. LABORATORY DATA: Hemoglobin is 12. Chemistries: BUN and creatinine are unremarkable. Glucose is 141. IMPRESSION: 1. Status post syncope. 2. Critical aortic stenosis. 3. History of respiratory failure. 4. Atrial fibrillation. 5. Coronary artery disease. 6. Elevated troponins. PLAN: Given these findings, awaiting for decision on how aggressive to be with his aortic stenosis. The patient has a power of collections attorney. Nasir Justice MD
--- NOTE | 2018-07-10 16:53 | CP.PCM.PN ---
Subjective - Date & Time of Evaluation Date of Evaluation: 07/10/18 Time of Evaluation: 11:10 - Subjective Subjective: No fevers, not in distress, coughing less, breathing ok. Objective - Vital Signs/Intake and Output Vital Signs (last 24 hours): Temp Pulse Resp BP Pulse Ox 97.8 F 55 L 18 131/94 H 90 L 07/10/18 08:12 07/10/18 08:12 07/10/18 08:12 07/10/18 08:12 07/10/18 08:12 Intake and Output: 07/10/18 07/10/18 06:59 18:59 Intake Total 950 Output Total 175 Balance 775 - Medications Medications: Current Medications Albuterol/Ipratropium (Duoneb 3 Mg/0.5 Mg (3 Ml) Ud) 3 ml IH [id number] [facility] Last Admin: 07/10/18 13:52 Dose: 3 ml Carbidopa/Levodopa/Entacapone (Stalevo 150) 1 tab PO TID [facility] Last Admin: 07/10/18 14:23 Dose: 1 tab Heparin Sodium (Porcine) (Heparin) 5,000 units SC Q8 [facility]; Protocol Last Admin: 07/10/18 14:24 Dose: 5,000 units Levofloxacin/Dextrose (Levaquin 750mg) 750 mg in 150 mls @ 100 mls/hr IVPB DAILY [facility]; Protocol Last Admin: 07/10/18 09:36 Dose: 100 mls/hr Meropenem (Merrem Iv 1 Gm Premix) 1 gm in 50 mls @ 100 mls/hr IVPB Q8 [facility]; Protocol Last Admin: 07/10/18 14:24 Dose: 100 mls/hr Methylprednisolone (Solu-Medrol) 20 mg IVP Q12 [facility] Last Admin: 07/10/18 09:37 Dose: 20 mg Mirtazapine (Remeron) 15 mg PO HS [facility] Last Admin: 07/09/18 21:57 Dose: 15 mg Pantoprazole Sodium (Protonix Ec Tab) 40 mg PO ACB [facility] Last Admin: 07/10/18 09:37 Dose: 40 mg Pramipexole Dihydrochloride (Mirapex) 1 mg PO TID [facility] Last Admin: 07/10/18 14:23 Dose: 1 mg - Labs Labs: 07/10/18 10:15 07/10/18 10:15 PT 12.2 SECONDS (9.4-12.5) 07/06/18 15:00 INR 1.07 07/06/18 15:00 APTT 30.7 Seconds (25.1-36.5) 07/06/18 15:00 - Constitutional Appears: No Acute Distress, Chronically Ill - Head Exam Head Exam: NORMAL INSPECTION - Respiratory Exam Respiratory Exam: Decreased Breath Sounds - Cardiovascular Exam Cardiovascular Exam: +S1, +S2 - GI/Abdominal Exam GI & Abdominal Exam: Soft. absent: Tenderness Assessment and Plan - Assessment and Plan (Free Text) Plan: Assessment Severe sepsis S/P ventilator-dependent respiratory failure, improving acute toxic-metabolic encephalopathy due to right sided severe pneumonia, slowly improving CAD chronic CHF HTN COPD pulmonary HTN Parkinson's disease Plan continue Merrem and Levaquin day 4 - blood cx are negative and MRSA nares is negative; sputum cx is showing yeast which is probably just contamination urine Legionella Ag is negative; PCT is 2.61 and we will trend and check a PCT today; reviewed CXR will continue to monitor clinically
--- NOTE | 2018-07-10 17:50 | CP.PCM.PN ---
<Mike Richmond - Last Filed: 07/10/18 17:40> Subjective - Date & Time of Evaluation Date of Evaluation: 07/10/18 Time of Evaluation: 17:40 - Subjective Subjective: Mike Richmond DO PGY1 - Internal Medicine Global [facility] - Hospital Progress Note Patient seen and examined at bedside; No acute events overnight. No complaints voiced by nursing at this time No complaints voiced by patient at this time Not complaining of shortness of breath, cough, sore throat, chest pain, palpitations, abd pain n/v/d/c, Remainder of 12 system ROS is negative at this time. Objective - Vital Signs/Intake and Output Vital Signs (last 24 hours): Temp Pulse Resp BP Pulse Ox 97.8 F 55 L 18 131/94 H 90 L 07/10/18 08:12 07/10/18 08:12 07/10/18 08:12 07/10/18 08:12 07/10/18 08:12 Intake and Output: 07/10/18 07/10/18 06:59 18:59 Intake Total 950 Output Total 175 Balance 775 - Medications Medications: Current Medications Albuterol/Ipratropium (Duoneb 3 Mg/0.5 Mg (3 Ml) Ud) 3 ml IH [id number] [facility] Last Admin: 07/10/18 13:52 Dose: 3 ml Carbidopa/Levodopa/Entacapone (Stalevo 150) 1 tab PO TID [facility] Last Admin: 07/10/18 17:33 Dose: 1 tab Heparin Sodium (Porcine) (Heparin) 5,000 units SC Q8 [facility]; Protocol Last Admin: 07/10/18 14:24 Dose: 5,000 units Levofloxacin/Dextrose (Levaquin 750mg) 750 mg in 150 mls @ 100 mls/hr IVPB DAILY [facility]; Protocol Last Admin: 07/10/18 09:36 Dose: 100 mls/hr Meropenem (Merrem Iv 1 Gm Premix) 1 gm in 50 mls @ 100 mls/hr IVPB Q8 [facility]; P rotocol Last Admin: 07/10/18 14:24 Dose: 100 mls/hr Methylprednisolone (Solu-Medrol) 20 mg IVP Q12 [facility] Last Admin: 07/10/18 09:37 Dose: 20 mg Mirtazapine (Remeron) 15 mg PO HS [facility] Last Admin: 07/09/18 21:57 Dose: 15 mg Pantoprazole Sodium (Protonix Ec Tab) 40 mg PO ACB [facility] Last Admin: 07/10/18 09:37 Dose: 40 mg Pramipexole Dihydrochloride (Mirapex) 1 mg PO TID [facility] Last Admin: 07/10/18 17:34 Dose: 1 mg - Labs Labs: 07/10/18 10:15 07/10/18 10:15 PT 12.2 SECONDS (9.4-12.5) 07/06/18 15:00 INR 1.07 07/06/18 15:00 APTT 30.7 Seconds (25.1-36.5) 07/06/18 15:00 - Constitutional Appears: Well, Non-toxic, No Acute Distress - Head Exam Head Exam: ATRAUMATIC, NORMOCEPHALIC - ENT Exam ENT Exam: Mucous Membranes Moist - Respiratory Exam Respiratory Exam: Decreased Breath Sounds at bases bilaterally; No crackles, rales, wheezing appreciated - Cardiovascular Exam Cardiovascular Exam: RRR, +S1, +S2, Murmur (Aortic Stenosis ) - GI/Abdominal Exam GI & Abdominal Exam: Soft. absent: Tenderness - Extremities Exam Extremities Exam: Normal Inspection - Neurological Exam Neurological Exam: Alert, Awake, CN II-XII Intact, Oriented x3 - Skin Skin Exam: Dry, Intact, Normal Color, Warm Assessment and Plan - Assessment and Plan (Free Text) Assessment: 88M PMH of CHF, HTN, Pulm HTN, COPD, NSTEMI, Porstate Ca, Parkinsons, Presented to [facility] [place] ED 07/06 w/ AMS and c/o coughing, gurgling and unresponsiveness. Patient was found to have hyeprcapnic respiratory failure subsequently intubated and transferred to MICU for management of severe sepsis w/ acute toxic metabolic encephalopathy 2/2 severe R sided PNA. Patient was extubated 07/08 and transferred to med/surg. Plan: Hypercapnic Respiratory Failure 2/2 HCAP - Resolved Sepsis 2/2 HCAP C/w Merrem, Levaquin Day 4 DC Vanco Blood Cx 2/2 negative @ 4 days Sputum Cx - yeast most likely colonizer Legionella negative PCT 2.61 ID following appreciate reccs Encephalopathy Resolving at this time Mental status improving, patient responsive Continue monitoring patient, reorient as needed CT Head negative UDS negative Hx COPD Duonebs PRN Solumedrol 40 Daily - Day 3/4 Paroxysmal Afib Anticoagulation held due to fall risk as per previous documentation HR remains controlled w/o use of betablockers Severe Aortic Stenosis Confirmed on Echo Palliative Care: Consulted today; patient was deemed to be competent and has changed code status to DNR/DNI HTN: Hypo/Normotensive at this time w/o Rx Continue holding; address as needed Hx Alzhemiers Carbidopa/Levodopa Hx Parkinsons Pamiprexole DVT PPX - Heparin GI PPX - Protonix PATIENT IS DNR/DNI OF TODAY Patient seen, examined, and discussed w/ attending physician Dr. Monica Richmond DO PGy1 - Internal medicine [facility] - Pager [phone] <Monica Richmond R - Last Filed: 07/12/18 07:51> Objective - Vital Signs/Intake and Output Vital Signs (last 24 hours): Temp Pulse Resp BP Pulse Ox 97.6 F 124 H 24 147/105 H 96 07/12/18 00:00 07/12/18 03:05 07/12/18 01:14 07/12/18 01:15 07/12/18 00:20 - Medications Medications: Current Medications Albuterol/Ipratropium (Duoneb 3 Mg/0.5 Mg (3 Ml) Ud) 3 ml IH [id number] [facility] Last Admin: 07/12/18 02:47 Dose: 3 ml Carbidopa/Levodopa/Entacapone (Stalevo 150) 1 tab PO TID [facility] Last Admin: 07/11/18 20:18 Dose: Not Given Guaifenesin (Mucinex La) 600 mg PO BID [facility] Last Admin: 07/11/18 20:17 Dose: Not Given Meropenem (Merrem Iv 1 Gm Premix) 1 gm in 50 mls @ 100 mls/hr IVPB Q8 [facility]; Protocol Last Admin: 07/12/18 06:06 Dose: 100 mls/hr Pantoprazole Sodium (Protonix 40mg Ivpb) 40 mg in 100 mls @ 20 mls/hr IVPB .Q5H [facility] Last Admin: 07/12/18 06:11 Dose: 20 mls/hr Amiodarone HCl/Dextrose (Nexterone 360 Mg In D5w 200 Ml (Premix)) 360 mg in 200 mls @ 16.667 mls/hr IV .Q12H [facility]; Protocol Last Admin: 07/12/18 04:01 Dose: 16.667 mls/hr Levofloxacin/Dextrose (Levaquin 750mg) 750 mg in 150 mls @ 100 mls/hr IVPB DAILY [facility]; Protocol Vancomycin HCl (Vancomycin 1gm) 1 gm in 250 mls @ 167 mls/hr IVPB Q12H [facility]; Protocol Mirtazapine (Remeron) 15 mg PO HS [facility] Last Admin: 07/11/18 22:14 Dose: Not Given Pramipexole Dihydrochloride (Mirapex) 1 mg PO TID [facility] Last Admin: 07/11/18 20:16 Dose: Not Given - Labs Labs: 07/12/18 05:30 07/12/18 05:30 PT 13.1 SECONDS (9.4-12.5) H 07/11/18 17:58 INR 1.15 07/11/18 17:58 APTT 33.2 Seconds (25.1-36.5) 07/11/18 17:58 Attending/Attestation - Attestation I have personally seen and examined this patient.: Yes I have fully participated in the care of the patient.: Yes I have reviewed all pertinent clinical information, including history, physical exam and plan: Yes Notes (Text): Patient seen and examined by me with resident at 10:50AM on 07/10/18 with resident. Case including discharge plan discussed with resident. Agree with above with following additions/corrections. Patient is a 88-year-old male with past medical history significant for CHF, hypertension, pulmonary hypertension, COPD, coronary artery disease, prostate cancer, paroxysmal atrial fibrillation, BPH, and Parkinson's disease and that presented to the emergency room with unresponsiveness. Patient states he is feeling ok. Continues to feel better. Patient denies any shortness of breath or chest pain. Denies any difficulty swallowing. No nausea, vomiting, or abdominal pain. No fevers or chills. No headaches or dizziness. No dysuria. Patient states he is tolerating diet. Patient is hard of hearing. Physical exam: Gen: Awake and alert sitting up in bed in no acute distress HEENT: Normocephalic, atraumatic. Extraocular muscles intact, pupils equal and reactive. No scleral icterus. Oropharynx is pink and moist. No pharyngeal erythema or exudate appreciated. Neck is supple. Patient hard of hearing Cardiovascular: Normal rhythm with intermittent irregular beats. Normal S1, S2. Positive systolic murmur. No rubs or gallops appreciated Pulmonary: Normal respiratory effort. Decreased breath sounds throughout No rhonchi, rales, or wheezing appreciated. Gastrointestinal: Soft. Nondistended. Positive generalized tenderness. Positive bowel sounds all 4 quadrants, no guarding. Musculoskeletal: Moves all extremities. No calf tenderness. Positive bilateral lower extremity edema Central nervous system: AAO x 3. Dermatologic: Skin warm and dry. Assessment and plan: Patient is a 88-year-old male with past medical history significant for CHF, hypertension, pulmonary hypertension, COPD, NSTEMI, prostate cancer, paroxysmal atrial fibrillation, BPH, and Parkinson's disease and that presented to the emergency room with unresponsiveness. 1. Sepsis secondary to right-sided pneumonia. Hypercapnic respiratory failure, extubated on 07/08/18. Improving. ID following, recommendations appreciated. Continue meropenem and Levaquin. Patient afebrile. Leukocytosis uptrending today. Blood cultures with no growth. Sputum culture positive for yeast. Urine for Legionella negative. Procalcitonin was 2.61. Chest x-ray 07/08/2018 per radiology showed diffuse infiltrate in the right lung and a small right effusion, unchanged. 2. Toxic metabolic encephalopathy. Resolved. Secondary to sepsis and right-sided pneumonia. Head CT per radiologist shows no acute intracranial findings. Continue supportive care. 3. Paroxysmal atrial fibrillation. Severe aortic stenosis. 2-D echo per floor covering layer shows normal chamber size with EF of 65%, moderate to severe valvular aortic stenosis, trace aortic regurgitation, mitral regurgitation is mild, moderate tricuspid regurgitation, no pericardial effusion. Cardiology following, recommendations appreciated. POA would like to think about TAVR. Palliative care following, recommendations appreciated. Patient now DNR/DNI. 4. COPD exacerbation. Improving. Continue nebulizer treatments.Taper Solu- Medrol. Continue O2 via nasal cannula as needed. 5. Parkinson's. Continue Carbidopa/levodopa/entacapone. Continue Remeron. Continue Mirapex 6. DVT prophylaxis. Heparin subcutaneous. 7. Advanced directive. Patient is a DNR/DNI. Case was discussed in detail with the patient regarding current diagnosis and treatment plan.
[2018-07-11] MEDS: Albuterol-Ipratrop 3 mg / 0.5 (3 ml) UD IH SCH ×3 (04:11→13:52)
[2018-07-11] MEDS: Meropenem IV 1 gm in NS 1 GM/50 ML BAG IVPB SCH ×3 (05:06→22:57)
[2018-07-11 06:32] LABS: GRAN # 9.57 (1.4-6.5); GRAN % 92.6 % (50.0-68.0); HEMOGLOBIN 12.6 g/dL (14.0-18.0); LYMPH # 0.5 (1.2-3.4); LYMPH % 4.5 % (22.0-35.0); MEAN CELL VOLUME 97.8 fl (80.0-105.0); MEAN CORPUSCULAR HEMOGLOBIN 30.5 pg (25.0-35.0); MEAN CORPUSCULAR HGB CONC 31.2 g/dl (31.0-37.0); MEAN PLATELET VOLUME 11.7 fl (7.0-11.0); MONO # 0.3 (0.1-0.6); MONO % 2.9 % (1.0-6.0); RBC 4.13 10^6/uL (3.5-6.1); RED CELL DISTRIBUTION WIDTH 16.3 % (11.5-14.5); WHITE BLOOD COUNT 10.3 10^3/ul (4.5-11.0)
[2018-07-11 07:18] LABS: ALB/GLOB RATIO 1.1 (1.1-1.8); ALBUMIN 3.1 g/dL (3.0-4.8); ALT/SGPT 22 U/L (7-56); AST/SGOT 40 U/L (17-59); BLOOD UREA NITROGEN 32 mg/dL (7-21); CALCIUM 8.3 mg/dL (8.4-10.5); GFR NON-AFRICAN AMERICAN > 60
[2018-07-11] MEDS: Carbidopa/Levodopa/Entacapone 37.5mg-150mg-200mg PO SCH ×3 (10:04→20:18)
[2018-07-11] MEDS: MethylPREDNISolone 40 mg Vial IVP SCH ×2 (10:04→22:58)
[2018-07-11] MEDS: Pantoprazole 40 mg EC Tab PO SCH (10:04)
[2018-07-11] MEDS: levoFLOXacin 750 mg in D5W 750 MG/150 ML BAG IVPB SCH (10:05)
--- NOTE | 2018-07-11 12:48 | RAD ---
Date of service: 07/11/2018 HISTORY: crackles COMPARISON: 07/08/2018 FINDINGS: LUNGS: Bibasilar infiltrates PLEURA: Small bilateral effusions CARDIOVASCULAR: Moderate cardiomegaly. Moderate vascular congestion showing improvement OSSEOUS STRUCTURES: No significant abnormalities. VISUALIZED UPPER ABDOMEN: Normal. OTHER FINDINGS: None. IMPRESSION: Improved vascular congestion. No change in bibasilar infiltrates and small effusions
--- NOTE | 2018-07-11 17:10 | CP.PCM.PN ---
Addendum entered and electronically signed by Mike Richmond DO 07/11/18 19:03: At 1736 Physician notified that patient was having episodes of hemoptysis. Patient was assessed immediately at bedside, HR ranging from 60-140; Normotensive; NG Tube inserted, confirmed w/ XRay 500CC + CC coffee ground emesis suctioned NG Lavage performed GI and ICU consulted Pt. is transferred to ICU GI Reommended conservative management for now 2U PRBC type + cross matched CBC performed twice Hb 14.9 and 14.0 Started on protonix drip + NS @ 100/hr Mike Richmond DO PGY1 Internal Medicine [employer] Original Note: <Mike Richmond - Last Filed: 07/11/18 17:06> Subjective - Date & Time of Evaluation Date of Evaluation: 07/11/18 Time of Evaluation: 07:00 - Subjective Subjective: Mike Richmond DO PGY1 - Internal Medicine [employer] - Hospital Progress Note Patient seen and examined at bedside this morning. No acute events reported overnight. Discussed at length w/ patient regarding the risks/ benefits of cardiac cath + tavr procedure given his aortic stenosis. Patient has deferred this decision to his POA at this time. POA reported they would call back tomorrow to make a decision. Nursing reported some 'wet' breath sounds; CXR was ordered, no interval change reported. Patient has no complaints of sob, cough, cp, dizziness, palpitations, abd pain, n/v/d/c, Remainder of 12 system ROS is negative at this time. Objective - Vital Signs/Intake and Output Vital Signs (last 24 hours): Temp Pulse Resp BP Pulse Ox 98.4 F 54 L 19 118/82 93 L 07/11/18 16:34 07/11/18 16:34 07/11/18 16:34 07/11/18 16:34 07/11/18 16:34 Intake and Output: 07/11/18 07/11/18 06:59 18:59 Intake Total 1210 Output Total 800 Balance 410 - Medications Medications: Current Medications Albuterol/Ipratropium (Duoneb 3 Mg/0.5 Mg (3 Ml) Ud) 3 ml IH [id number] [facility] Last Admin: 07/11/18 13:52 Dose: 3 ml Carbidopa/Levodopa/Entacapone (Stalevo 150) 1 tab PO TID [facility] Last Admin: 07/11/18 14:51 Dose: 1 tab Guaifenesin (Mucinex La) 600 mg PO BID [facility] Heparin Sodium (Porcine) (Heparin) 5,000 units SC Q8 [facility]; Protocol Last Admin: 07/11/18 14:51 Dose: 5,000 units Levofloxacin/Dextrose (Levaquin 750mg) 750 mg in 150 mls @ 100 mls/hr IVPB DAILY [facility]; Protocol Last Admin: 07/11/18 10:05 Dose: 100 mls/hr Meropenem (Merrem Iv 1 Gm Premix) 1 gm in 50 mls @ 100 mls/hr IVPB Q8 [facility]; Protocol Last Admin: 07/11/18 14:52 Dose: 100 mls/hr Methylprednisolone (Solu-Medrol) 20 mg IVP Q12 [facility] Stop: 07/11/18 22:01 Last Admin: 07/11/18 10:04 Dose: 20 mg Mirtazapine (Remeron) 15 mg PO HS [facility] Last Admin: 07/10/18 21:21 Dose: 15 mg Pantoprazole Sodium (Protonix Ec Tab) 40 mg PO ACB [facility] Last Admin: 07/11/18 10:04 Dose: 40 mg Pramipexole Dihydrochloride (Mirapex) 1 mg PO TID [facility] Last Admin: 07/11/18 14:51 Dose: 1 mg - Labs Labs: 07/11/18 06:00 07/11/18 06:00 PT 12.2 SECONDS (9.4-12.5) 07/06/18 15:00 INR 1.07 07/06/18 15:00 APTT 30.7 Seconds (25.1-36.5) 07/06/18 15:00 - Constitutional Appears: Well, Non-toxic, No Acute Distress - Head Exam Head Exam: ATRAUMATIC, NORMOCEPHALIC - ENT Exam ENT Exam: Mucous Membranes Moist - Respiratory Exam Respiratory Exam: Decreased Breath Sounds, Some Bibasilar crackles - Cardiovascular Exam Cardiovascular Exam: RRR, +S1, +S2, Murmur (Aortic Stenosis ) - GI/Abdominal Exam GI & Abdominal Exam: Soft. absent: Tenderness - Extremities Exam Extremities Exam: Normal Inspection - Neurological Exam Neurological Exam: Alert, Awake, CN II-XII Intact - Skin Skin Exam: Dry, Intact, Normal Color, Warm Assessment and Plan - Assessment and Plan (Free Text) Assessment: Assessment: 88M PMH of CHF, HTN, Pulm HTN, COPD, NSTEMI, Porstate Ca, Parkinsons, Presented to [facility] [place] ED 07/06 w/ AMS and c/o coughing, gurgling and unresponsiveness. Patient was found to have hyeprcapnic respiratory failure subsequently intubated and transferred to MICU for management of severe sepsis w/ acute toxic metabolic encephalopathy 2/2 severe R sided PNA. Patient was extubated 07/08 and transferred to med/surg. Sepsis /2 HCAP C/w Merrem, Levaquin Blood Cx /2 negative at this time Sputum Cx - yeast most likely colonizer Legionella negative PCT 2.61 ID following appreciate reccs Hx COPD Duonebs PRN Solumedrol Day 01/03 today Bibasilar rales/crackles x1 dose lasix 20 IVP Mucinex Incentive spirometer Encephalopathy - resolved Continue monitoring patient, reorient as needed CT Head negative UDS negative Paroxysmal Afib Holding home metoprolol at this time given bradycardia Severe Aortic Stenosis Confirmed on Echo Given poor prognosis palliative care consult may be appropriate As per discussion w/ palliative care patient is competent to make medical decisions. Discussed at length w/ patient regarding the risks/ benefits of cardiac cath + tavr procedure given his aortic stenosis. Patient has deferred this decision to his POA at this time. POA reported they would call back tomorrow to make a decision. Hx HTN: Hypo/Normotensive at this time w/o Rx Continue holding; address as needed Hx Alzhemiers C/w Carbidopa/Levodopa Hx Parkinsons C/w Pamiprexole DVT PPX - Heparin GI PPX - Protonix Code Status: Patient is currently DNR/DNI as per palliative care consultation w/ patient. Disposition: PT Eval recc TCU placement; if TCU is not accepting then home with services Patient seen, examined, and discussed w/ attending physician Mike Richmond DO PGy1 - Internal medicine [employer] - Pager [phone] <Monica Richmond R - Last Filed: 07/12/18 08:03> Objective - Vital Signs/Intake and Output Vital Signs (last 24 hours): Temp Pulse Resp BP Pulse Ox 97.6 F 73 24 147/105 H 96 07/12/18 00:00 07/12/18 07:57 07/12/18 01:14 07/12/18 01:15 07/12/18 00:20 - Medications Medications: Current Medications Albuterol/Ipratropium (Duoneb 3 Mg/0.5 Mg (3 Ml) Ud) 3 ml IH [id number] [facility] Last Admin: 07/12/18 07:53 Dose: 3 ml Carbidopa/Levodopa/Entacapone (Stalevo 150) 1 tab PO TID [facility] Last Admin: 07/11/18 20:18 Dose: Not Given Guaifenesin (Mucinex La) 600 mg PO BID [facility] Last Admin: 07/11/18 20:17 Dose: Not Given Meropenem (Merrem Iv 1 Gm Premix) 1 gm in 50 mls @ 100 mls/hr IVPB Q8 [facility]; Protocol Last Admin: 07/12/18 06:06 Dose: 100 mls/hr Pantoprazole Sodium (Protonix 40mg Ivpb) 40 mg in 100 mls @ 20 mls/hr IVPB .Q5H [facility] Last Admin: 07/12/18 06:11 Dose: 20 mls/hr Amiodarone HCl/Dextrose (Nexterone 360 Mg In D5w 200 Ml (Premix)) 360 mg in 200 mls @ 16.667 mls/hr IV .Q12H [facility]; Protocol Last Admin: 07/12/18 04:01 Dose: 16.667 mls/hr Levofloxacin/Dextrose (Levaquin 750mg) 750 mg in 150 mls @ 100 mls/hr IVPB DAILY [facility]; Protocol Vancomycin HCl (Vancomycin 1gm) 1 gm in 250 mls @ 167 mls/hr IVPB Q12H [facility]; Protocol Last Admin: 07/12/18 07:57 Dose: 167 mls/hr Mirtazapine (Remeron) 15 mg PO HS [facility] Last Admin: 07/11/18 22:14 Dose: Not Given Pramipexole Dihydrochloride (Mirapex) 1 mg PO TID [facility] Last Admin: 07/11/18 20:16 Dose: Not Given - Labs Labs: 07/12/18 05:30 07/12/18 05:30 PT 13.1 SECONDS (9.4-12.5) H 07/11/18 17:58 INR 1.15 07/11/18 17:58 APTT 33.2 Seconds (25.1-36.5) 07/11/18 17:58 Attending/Attestation - Attestation I have personally seen and examined this patient.: Yes I have fully participated in the care of the patient.: Yes I have reviewed all pertinent clinical information, including history, physical exam and plan: Yes Notes (Text): Patient seen and examined by me with resident at 10:40AM on 07/11/18 with resident. Case including discharge plan discussed with resident. Agree with jairo candelaria with following additions/corrections. Patient is a 88-year-old male with past medical history significant for CHF, hypertension, pulmonary hypertension, COPD, coronary artery disease, prostate ca ncer, paroxysmal atrial fibrillation, BPH, and Parkinson's disease and that presented to the emergency room with unresponsiveness. Patient states he is doing ok. Patient with some "gurguling" per nurse. Patient denies any shortness of breath or chest pain. No difficulty swallowing. No nausea, vomiting, or abdominal pain. Patient tolerating diet. Patient is hard of hearing. Physical exam: Gen: Awake and alert sitting up in bed in no acute distress HEENT: Normocephalic, atraumatic. Extraocular muscles intact, pupils equal and reactive. No scleral icterus. Oropharynx is pink and moist. No pharyngeal erythema or exudate appreciated. Neck is supple. Patient hard of hearing Cardiovascular: Normal rhythm with intermittent irregular beats. Normal S1, S2. Positive systolic murmur. No rubs or gallops appreciated Pulmonary: Normal respiratory effort. Decreased breath sounds throughout. Coarse breath sounds throughout. Positive crackles. No wheezing appreciated. Gastrointestinal: Soft. Nondistended. Nontender. Positive bowel sounds all 4 quadrants, no guarding. Musculoskeletal: Moves all extremities. No calf tenderness. Positive bilateral lower extremity edema Central nervous system: AAO x 3. Dermatologic: Skin warm and dry. Assessment and plan: Patient is a 88-year-old male with past medical history significant for CHF, hypertension, pulmonary hypertension, COPD, NSTEMI, prostate cancer, paroxysmal atrial fibrillation, BPH, and Parkinson's disease and that presented to the emergency room with unresponsiveness. 1. Sepsis secondary to right-sided pneumonia. Hypercapnic respiratory failure, extubated on 07/08/18. Improving. ID following, recommendations appreciated. Continue meropenem and Levaquin. Patient afebrile. Leukocytosis resolved. Blood cultures with no growth. Sputum culture positive for yeast. Urine for Legionella negative. Procalcitonin was 2.61. Now improved to 1.41 Chest x-ray 07/08/2018 per radiology showed diffuse infiltrate in the right lung and a small right effusion, unchanged. Patient with gurgling sounds, coarse breath sounds and crackles. We will get repeat chest x-ray. 1 dose of Lasix given. 2. Toxic metabolic encephalopathy. Resolved. Secondary to sepsis and right-sided pneumonia. Head CT per radiologist shows no acute intracranial findings. Cont inue supportive care. 3. Paroxysmal atrial fibrillation. Severe aortic stenosis. 2-D echo per cardio logist shows normal chamber size with EF of 65%, moderate to severe valvular aortic stenosis, trace aortic regurgitation, mitral regurgitation is mild, moderate tricuspid regurgitation, no pericardial effusion. Cardiology following, recommendations appreciated. POJairo would like to think about TAVR. Discussed with Matt Alex. Palliative care following, recommendations appreciated. Patient DNR/DNI. 4. COPD exacerbation. Improving. Continue nebulizer treatments. Continue to taper Solu-Medrol. Continue O2 via nasal cannula as needed. 5. Parkinson's. Continue Carbidopa/levodopa/entacapone. Continue Remeron. Continue Mirapex 6. DVT prophylaxis. Heparin subcutaneous. 7. Advanced directive. Patient is a DNR/DNI. Case was discussed in detail with the patient regarding current diagnosis and treatment plan. At 5:30PM 07/11/18, notified by nurse that patient is coughing up blood. Patient was found to be hypoxic. Patient denied any abdominal pain. Patient gurgling. Nasal lavage done with dark blood noted. NG tube placed with 1.3 L output of coffee ground emesis. Patient started to become lethargic. Senior [employer] Engineer, Dr. Esquivel consulted. Patient seen at bedside by GI. Started on Protonix drip. Patient also placed on BiPAP. Per GI, patient is very high risk for EGD. Blood pressure within normal limits. Continue with conservative management for now. H&H stable. Monitor CBC every 6 hours. ICU was also consulted. Patient transferred to the ICU. This was discussed with MASTER Alex at 6:43PM 07/11/18. Voicemail was also left for Teresa Smith.
--- NOTE | 2018-07-11 17:28 | CP.PCM.PN ---
Subjective - Date & Time of Evaluation Date of Evaluation: 07/11/18 Time of Evaluation: 11:35 - Subjective Subjective: Afebrile, not in distress. Objective - Vital Signs/Intake and Output Vital Signs (last 24 hours): Temp Pulse Resp BP Pulse Ox 97.5 F L 45 L 19 130/97 H 91 L 07/10/18 18:00 07/10/18 18:00 07/10/18 18:00 07/10/18 18:00 07/10/18 18:00 Intake and Output: 07/11/18 07/11/18 06:59 18:59 Intake Total 1210 Output Total 800 Balance 410 - Medications Medications: Current Medications Albuterol/Ipratropium (Duoneb 3 Mg/0.5 Mg (3 Ml) Ud) 3 ml IH [id number] [facility] Last Admin: 07/11/18 04:11 Dose: Not Given Carbidopa/Levodopa/Entacapone (Stalevo 150) 1 tab PO TID [facility] Last Admin: 07/10/18 17:33 Dose: 1 tab Heparin Sodium (Porcine) (Heparin) 5,000 units SC Q8 [facility]; Protocol Last Admin: 07/11/18 05:06 Dose: 5,000 units Levofloxacin/Dextrose (Levaquin 750mg) 750 mg in 150 mls @ 100 mls/hr IVPB DAILY [facility]; Protocol Last Admin: 07/10/18 09:36 Dose: 100 mls/hr Meropenem (Merrem Iv 1 Gm Premix) 1 gm in 50 mls @ 100 mls/hr IVPB Q8 [facility]; Protocol Last Admin: 07/11/18 05:06 Dose: 100 mls/hr Methylprednisolone (Solu-Medrol) 20 mg IVP Q12 [facility] Stop: 07/11/18 22:01 Last Admin: 07/10/18 21:22 Dose: 20 mg Mirtazapine (Remeron) 15 mg PO HS [facility] Last Admin: 07/10/18 21:21 Dose: 15 mg Pantoprazole Sodium (Protonix Ec Tab) 40 mg PO ACB [facility] Last Admin: 07/10/18 09:37 Dose: 40 mg Pramipexole Dihydrochloride (Mirapex) 1 mg PO TID [facility] Last Admin: 07/10/18 17:34 Dose: 1 mg - Labs Labs: 07/11/18 06:00 07/11/18 06:00 PT 12.2 SECONDS (9.4-12.5) 07/06/18 15:00 INR 1.07 07/06/18 15:00 APTT 30.7 Seconds (25.1-36.5) 07/06/18 15:00 - Constitutional Appears: No Acute Distress, Chronically Ill - Head Exam Head Exam: NORMAL INSPECTION - Respiratory Exam Respiratory Exam: Decreased Breath Sounds - Cardiovascular Exam Cardiovascular Exam: +S1, +S2 - GI/Abdominal Exam GI & Abdominal Exam: Soft. absent: Tenderness Assessment and Plan - Assessment and Plan (Free Text) Plan: Assessment Severe sepsis S/P ventilator-dependent respiratory failure, improving acute toxic-metabolic encephalopathy due to right sided severe pneumonia, slowly improving CAD chronic CHF HTN COPD pulmonary HTN Parkinson's disease Plan continue Merrem and Levaquin day 5 - blood cx are negative and MRSA nares is negative; sputum cx is showing yeast which is probably just contamination urine Legionella Ag is negative; PCT is 2.61 and we will trend and check a PCT today; reviewed CXR will continue to monitor clinically
[2018-07-11] MEDS ORDERED: Sodium Chloride 0.9% 1,000 ML IV STA (18:05)
[2018-07-11 18:23] LABS: VENOUS BLOOD GAS BASE EXCESS -0.1 mmol/L (0.0-2.0); VENOUS BLOOD GAS PO2 72 mm/Hg (30-55)
[2018-07-11 18:24] LABS: BASO # 0.01 K/mm3 (0.0-2.0); BASO % 0.1 % (0.0-3.0); EOS % 0.1 % (1.5-5.0); GRAN # 16.71 (1.4-6.5); GRAN % 90.2 % (50.0-68.0); HEMOGLOBIN 14.9 g/dL (14.0-18.0); LYMPH # 0.7 (1.2-3.4); MEAN CELL VOLUME 99.8 fl (80.0-105.0); MEAN CORPUSCULAR HEMOGLOBIN 31.2 pg (25.0-35.0); MEAN CORPUSCULAR HGB CONC 31.3 g/dl (31.0-37.0); MEAN PLATELET VOLUME 11.5 fl (7.0-11.0); MONO % 5.6 % (1.0-6.0); RBC 4.77 10^6/uL (3.5-6.1); RED CELL DISTRIBUTION WIDTH 16.2 % (11.5-14.5); WHITE BLOOD COUNT 18.5 10^3/ul (4.5-11.0)
[2018-07-11 18:28] LABS: INR 1.15; PARTIAL THROMBOPLASTIN TIME 33.2 Seconds (25.1-36.5); PROTHROMBIN TIME 13.1 SECONDS (9.4-12.5)
[2018-07-11 18:29] LABS: VENOUS BLOOD PH 7.09 (7.32-7.43)
[2018-07-11 18:42] LABS: ALB/GLOB RATIO 1.2 (1.1-1.8); ALBUMIN 3.8 g/dL (3.0-4.8); ALT/SGPT 15 U/L (7-56); AST/SGOT 38 U/L (17-59); BLOOD UREA NITROGEN 38 mg/dL (7-21); CALCIUM 8.8 mg/dL (8.4-10.5); GFR NON-AFRICAN AMERICAN > 60
[2018-07-11 18:43] LABS: BASO # 0.01 K/mm3 (0.0-2.0); BASO % 0.1 % (0.0-3.0); MEAN CELL VOLUME 99.1 fl (80.0-105.0); MEAN CORPUSCULAR HEMOGLOBIN 31.2 pg (25.0-35.0); MEAN CORPUSCULAR HGB CONC 31.5 g/dl (31.0-37.0); MEAN PLATELET VOLUME 11.5 fl (7.0-11.0); MONO # 0.5 (0.1-0.6); MONO % 3.1 % (1.0-6.0); PLATELET COUNT 225 10^3/uL (120.0-450.0); RBC 4.49 10^6/uL (3.5-6.1); RED CELL DISTRIBUTION WIDTH 16.2 % (11.5-14.5); WHITE BLOOD COUNT 16.3 10^3/ul (4.5-11.0)
--- NOTE | 2018-07-11 18:47 | CP.PCM.CON ---
<Js Trujillo - Last Filed: 07/11/18 18:59> History of Present Illness - History of Present Illness History of Present Illness: PGY-4 GI Fellow Consult Note The following obtain from chart review and hospital staff due to clinical condition Pt is an 88 yo WM with Parkinsons, Prostate CA, Aortic Stenosis, AFib, COPD, pHTN who was admitted 07/06/18 to MICU for acute respiratory failure, intubated, treated with antibiotcs for pneumonia as well as steroids. He has also been receiving subcutaneous heparin. Around 1745 pt had multiple episode of coffee ground emesis. During my encounter patient clearly altered and tachypneic with NG in place due to aspiration concerns. NG output totaled 1 L of dark brown/red liquid. Vitals were labile at the time with HR tachy then shae, BP stable. Unable to obtain ROS due to clinical condition PMHx: Parkinson's Disease, Prostate CA, Pulmonary HTN, atrial fibrillation, NSTEMI, COPD, BPH, CHF PSurgHx: cardiac cath 2017 Meds: pls see chart ALL: NKDA SocHx: denies smoking, alcohol use, drug use FamHx: unknown Past Patient History - Infectious Disease Hx of Infectious Diseases: None - Tetanus Immunizations Tetanus Immunization: Unknown - Past Social History Smoking Status: Never Smoked - CARDIAC Hx Cardiac Disorders: Yes Hx Congestive Heart Failure: Yes Hx Hypertension: Yes - PULMONARY Hx Chronic Obstructive Pulmonary Disease (COPD): Yes Hx Pneumonia: Yes - NEUROLOGICAL Hx Neurological Disorder: Yes Hx Parkinson's Disease: Yes - HEENT Hx HEENT Problems: Yes Hx Deafness: Yes - RENAL Hx Chronic Kidney Disease: No - ENDOCRINE/METABOLIC Hx Endocrine Disorders: No - HEMATOLOGICAL/ONCOLOGICAL Hx Cancer: Yes (prostate) - INTEGUMENTARY Hx Dermatological Problems: No - MUSCULOSKELETAL/RHEUMATOLOGICAL Hx Falls: Yes - GASTROINTESTINAL Hx Gastrointestinal Disorders: No - GENITOURINARY/GYNECOLOGICAL Hx Genitourinary Disorders: Yes Hx Prostate Problems: Yes - PSYCHIATRIC Hx Emotional Abuse: No Hx Physical Abuse: No Hx Substance Use: No - SURGICAL HISTORY Hx Surgeries: No - ANESTHESIA Hx Anesthesia Reactions: No Hx Malignant Hyperthermia: No Meds Allergies/Adverse Reactions: Allergies Allergy/AdvReac Type Severity Reaction Status Date / Time No Known Allergies Allergy Verified 10/02/16 15:21 - Medications Medications: Current Medications Albuterol/Ipratropium (Duoneb 3 Mg/0.5 Mg (3 Ml) Ud) 3 ml IH [id number] [facility] Last Admin: 07/11/18 13:52 Dose: 3 ml Carbidopa/Levodopa/Entacapone (Stalevo 150) 1 tab PO TID [facility] Last Admin: 07/11/18 14:51 Dose: 1 tab Guaifenesin (Mucinex La) 600 mg PO BID [facility] Levofloxacin/Dextrose (Levaquin 750mg) 750 mg in 150 mls @ 100 mls/hr IVPB DAILY [facility]; Protocol Last Admin: 07/11/18 10:05 Dose: 100 mls/hr Meropenem (Merrem Iv 1 Gm Premix) 1 gm in 50 mls @ 100 mls/hr IVPB Q8 [facility]; Protocol Last Admin: 07/11/18 14:52 Dose: 100 mls/hr Pantoprazole Sodium (Protonix 40mg Ivpb) 40 mg in 100 mls @ 20 mls/hr IVPB .Q5H [facility] Sodium Chloride (Sodium Chloride 0.9%) 1,000 mls @ 100 mls/hr IV .Q10H [facility] Stop: 07/12/18 04:04 Methylprednisolone (Solu-Medrol) 20 mg IVP Q12 [facility] Stop: 07/11/18 22:01 Last Admin: 07/11/18 10:04 Dose: 20 mg Mirtazapine (Remeron) 15 mg PO HS [facility] Last Admin: 07/10/18 21:21 Dose: 15 mg Pramipexole Dihydrochloride (Mirapex) 1 mg PO TID [facility] Last Admin: 07/11/18 14:51 Dose: 1 mg Physical Exam - Constitutional Appears: In Acute Distress, Chronically Ill - Head Exam Head Exam: ATRAUMATIC, NORMAL INSPECTION - Eye Exam Eye Exam: absent: Conjunctival injection, Scleral icterus - ENT Exam ENT Exam: Mucous Membranes Dry. absent: Mucous Membranes Moist, Normal External Ear Exam - Respiratory Exam Respiratory Exam: Accessory Muscle Use, Respiratory Distress - Cardiovascular Exam Cardiovascular Exam: Tachycardia - GI/Abdominal Exam GI & Abdominal Exam: Distended (mildly), Normal Bowel Sounds, Soft. absent: Guarding, Hernia, Organomegaly, Rebound, Rigid, Tenderness - Rectal Exam Rectal Exam: Deferred - Extremities Exam Extremities exam: Positive for: normal inspection. Negative for: pedal edema - Neurological Exam Additional comments: not alert, not conversive - Skin Skin Exam: Diaphoretic, Normal Color Results - Vital Signs Recent Vital Signs: Last Vital Signs Temp 98.4 F 07/11/18 16:34 Pulse 54 L 07/11/18 16:34 Resp 19 07/11/18 16:34 BP 118/82 07/11/18 16:34 Pulse Ox 93 L 07/11/18 16:34 - Labs Result Diagrams: 07/11/18 18:30 07/11/18 17:55 Labs: Laboratory Results - last 24 hr 07/10/18 07/11/18 07/11/18 11:00 06:00 06:00 WBC 10.3 D RBC 4.13 Hgb 12.6 L Hct 40.4 L MCV 97.8 MCH 30.5 MCHC 31.2 RDW 16.3 H Plt Count 206 MPV 11.7 H Gran % 92.6 H Lymph % (Auto) 4.5 L [place] % (Auto) 2.9 Eos % (Auto) 0.0 L Baso % (Auto) 0.0 Gran # 9.57 H Lymph # (Auto) 0.5 L [place] # (Auto) 0.3 Eos # (Auto) 0.0 Baso # (Auto) 0.00 PT INR APTT pO2 VBG pH VBG pCO2 VBG HCO3 VBG Total CO2 VBG O2 Sat (Calc) VBG Base Excess VBG Potassium Glucose Lactate FiO2 Sodium 143 Potassium 4.9 Chloride 110 H Carbon Dioxide 32 Anion Gap 7 L BUN 32 H Creatinine 1.0 Est GFR ( Amer) > 60 Est GFR (Non-Af Amer) > 60 Random Glucose 126 H Calcium 8.3 L Phosphorus Magnesium Total Bilirubin 0.9 AST 40 ALT 22 Alkaline Phosphatase 62 Total Protein 5.8 Albumin 3.1 Globulin 2.7 Albumin/Globulin Ratio 1.1 Procalcitonin 1.41 H Venous Blood Potassium Blood Type Blood Type Confirm Antibody Screen Crossmatch BBK History Checked 07/11/18 07/11/18 07/11/18 17:55 17:55 17:58 WBC RBC Hgb Hct MCV MCH MCHC RDW Plt Count MPV Gran % Lymph % (Auto) [place] % (Auto) Eos % (Auto) Baso % (Auto) Gran # Lymph # (Auto) [place] # (Auto) Eos # (Auto) Baso # (Auto) PT INR APTT pO2 72 H VBG pH 7.09 L* VBG pCO2 109.0 H* VBG HCO3 33.1 H VBG Total CO2 36.4 H VBG O2 Sat (Calc) 93.1 H VBG Base Excess -0.1 L VBG Potassium 5.3 H Glucose 187 H Lactate 1.4 FiO2 21.0 Sodium 143 142.0 Potassium 5.5 H Chloride 107 107.0 Carbon Dioxide 32 Anion Gap 10 BUN 38 H Creatinine 1.0 Est GFR ( Amer) > 60 Est GFR (Non-Af Amer) > 60 Random Glucose 180 H Calcium 8.8 Phosphorus 4.2 Magnesium 2.2 Total Bilirubin 1.0 AST 38 ALT 15 Alkaline Phosphatase 76 Total Protein 7.0 Albumin 3.8 Globulin 3.1 Albumin/Globulin Ratio 1.2 Procalcitonin Venous Blood Potassium 5.3 H Blood Type O POSITIVE Blood Type Confirm Antibody Screen Negative Crossmatch See Detail BBK History Checked No verified bt 07/11/18 07/11/18 07/11/18 17:58 17:58 18:24 WBC 18.5 H D RBC 4.77 Hgb 14.9 D Hct 47.6 MCV 99.8 MCH 31.2 MCHC 31.3 RDW 16.2 H Plt Count 223 MPV 11.5 H Gran % 90.2 H Lymph % (Auto) 4.0 L [place] % (Auto) 5.6 Eos % (Auto) 0.1 L Baso % (Auto) 0.1 Gran # 16.71 H Lymph # (Auto) 0.7 L [place] # (Auto) 1.0 H Eos # (Auto) 0.0 Baso # (Auto) 0.01 PT 13.1 H INR 1.15 APTT 33.2 pO2 VBG pH VBG pCO2 VBG HCO3 VBG Total CO2 VBG O2 Sat (Calc) VBG Base Excess VBG Potassium Glucose Lactate FiO2 Sodium Potassium Chloride Carbon Dioxide Anion Gap BUN Creatinine Est GFR ( Amer) Est GFR (Non-Af Amer) Random Glucose Calcium Phosphorus Magnesium Total Bilirubin AST ALT Alkaline Phosphatase Total Protein Albumin Globulin Albumin/Globulin Ratio Procalcitonin Venous Blood Potassium Blood Type Blood Type Confirm O POSITIVE Antibody Screen Crossmatch BBK History Checked 07/11/18 18:30 WBC 16.3 H RBC 4.49 Hgb 14.0 Hct 44.5 MCV 99.1 MCH 31.2 MCHC 31.5 RDW 16.2 H Plt Count 225 MPV 11.5 H Gran % Lymph % (Auto) [place] % (Auto) 3.1 Eos % (Auto) 0.0 L Baso % (Auto) 0.1 Gran # Lymph # (Auto) [place] # (Auto) 0.5 Eos # (Auto) 0.0 Baso # (Auto) 0.01 PT INR APTT pO2 VBG pH VBG pCO2 VBG HCO3 VBG Total CO2 VBG O2 Sat (Calc) VBG Base Excess VBG Potassium Glucose Lactate FiO2 Sodium Potassium Chloride Carbon Dioxide Anion Gap BUN Creatinine Est GFR ( Amer) Est GFR (Non-Af Amer) Random Glucose Calcium Phosphorus Magnesium Total Bilirubin AST ALT Alkaline Phosphatase Total Protein Albumin Globulin Albumin/Globulin Ratio Procalcitonin Venous Blood Potassium Blood Type Blood Type Confirm Antibody Screen Crossmatch BBK History Checked Assessment & Plan - Assessment and Plan (Free Text) Assessment: 88 yo WM with Aortic stenosis, Afib, pHTN, Parkinsons, COPD admitted for respiratory failure and AMS on 07/06, now has coffee-ground emesis. # Hematemesis: Coffee ground with >1 L output from NG. Vitals stable at this time, but high risk for decompensation. Has risk factors of recent steroid use and subQ herpain use to put at risk for GI bleed. # Goals of Care: Pt recent had extensive discussion with staff and was deemed to have decision making capacity for himself on 07/10/18. Patients wishes are to be DNR/DNI. Plan: - Supportive care with PPI gtt - Monitor Hgb q 4 hrs, transfuse if < 7 - IVF support - 2 large bore IVs - No plans for endoscopy at this time as patient is too unstable. Furthermore, pt would need intubation at current status but that would not be within patient 's desired goals of care. Therefore, need to optimize medically Pt seen and examined with Dr. Esquivel; see attestation for further recs/changes. <Janine Esquivel V - Last Filed: 07/11/18 23:07> Meds - Medications Medications: Current Medications Albuterol/Ipratropium (Duoneb 3 Mg/0.5 Mg (3 Ml) Ud) 3 ml IH [id number] [facility] Last Admin: 07/11/18 13:52 Dose: 3 ml Carbidopa/Levodopa/Entacapone (Stalevo 150) 1 tab PO TID [facility] Last Admin: 07/11/18 20:18 Dose: Not Given Guaifenesin (Mucinex La) 600 mg PO BID [facility] Last Admin: 07/11/18 20:17 Dose: Not Given Meropenem (Merrem Iv 1 Gm Premix) 1 gm in 50 mls @ 100 mls/hr IVPB Q8 [facility]; Protocol Last Admin: 07/11/18 14:52 Dose: 100 mls/hr Pantoprazole Sodium (Protonix 40mg Ivpb) 40 mg in 100 mls @ 20 mls/hr IVPB .Q5H [facility] Last Admin: 07/11/18 20:01 Dose: 20 mls/hr Sodium Chloride (Sodium Chloride 0.9%) 1,000 mls @ 100 mls/hr IV .Q10H [facility] Stop: 07/12/18 04:04 Last Admin: 07/11/18 19:30 Dose: 100 mls/hr Amiodarone HCl/Dextrose (Nexterone 360 Mg In D5w 200 Ml (Premix)) 360 mg in 200 mls @ 33.333 mls/hr IV .Q6H [facility]; Protocol Last Admin: 07/11/18 21:48 Dose: 33.333 mls/hr Amiodarone HCl/Dextrose (Nexterone 360 Mg In D5w 200 Ml (Premix)) 360 mg in 200 mls @ 16.667 mls/hr IV .Q12H [facility]; Protocol Mirtazapine (Remeron) 15 mg PO HS [facility] Last Admin: 07/11/18 22:14 Dose: Not Given Pramipexole Dihydrochloride (Mirapex) 1 mg PO TID [facility] Last Admin: 07/11/18 20:16 Dose: Not Given Results - Vital Signs Recent Vital Signs: Last Vital Signs Temp 98.4 F 07/11/18 16:34 Pulse 139 H 07/11/18 20:55 Resp 19 07/11/18 16:34 BP 118/82 07/11/18 16:34 Pulse Ox 93 L 07/11/18 16:34 - Labs Result Diagrams: 07/11/18 18:30 07/11/18 17:55 Labs: Laboratory Results - last 24 hr 10/09/18 10/10/18 10/10/18 11:00 06:00 06:00 WBC 10.3 D RBC 4.13 Hgb 12.6 L Hct 40.4 L MCV 97.8 MCH 30.5 MCHC 31.2 RDW 16.3 H Plt Count 206 MPV 11.7 H Gran % 92.6 H Lymph % (Auto) 4.5 L [place] % (Auto) 2.9 Eos % (Auto) 0.0 L Baso % (Auto) 0.0 Gran # 9.57 H Lymph # (Auto) 0.5 L [place] # (Auto) 0.3 Eos # (Auto) 0.0 Baso # (Auto) 0.00 PT INR APTT pO2 VBG pH VBG pCO2 VBG HCO3 VBG Total CO2 VBG O2 Sat (Calc) VBG Base Excess VBG Potassium Glucose Lactate FiO2 Sodium 143 Potassium 4.9 Chloride 110 H Carbon Dioxide 32 Anion Gap 7 L BUN 32 H Creatinine 1.0 Est GFR ( Amer) > 60 Est GFR (Non-Af Amer) > 60 Random Glucose 126 H Calcium 8.3 L Phosphorus Magnesium Total Bilirubin 0.9 AST 40 ALT 22 Alkaline Phosphatase 62 Total Protein 5.8 Albumin 3.1 Globulin 2.7 Albumin/Globulin Ratio 1.1 Procalcitonin 1.41 H Venous Blood Potassium Blood Type Blood Type Confirm Antibody Screen Crossmatch BBK History Checked 07/11/18 07/11/18 07/11/18 17:55 17:55 17:58 WBC RBC Hgb Hct MCV MCH MCHC RDW Plt Count MPV Gran % Lymph % (Auto) [place] % (Auto) Eos % (Auto) Baso % (Auto) Gran # Lymph # (Auto) [place] # (Auto) Eos # (Auto) Baso # (Auto) PT INR APTT pO2 72 H VBG pH 7.09 L* VBG pCO2 109.0 H* VBG HCO3 33.1 H VBG Total CO2 36.4 H VBG O2 Sat (Calc) 93.1 H VBG Base Excess -0.1 L VBG Potassium 5.3 H Glucose 187 H Lactate 1.4 FiO2 21.0 Sodium 143 142.0 Potassium 5.5 H Chloride 107 107.0 Carbon Dioxide 32 Anion Gap 10 BUN 38 H Creatinine 1.0 Est GFR ( Amer) > 60 Est GFR (Non-Af Amer) > 60 Random Glucose 180 H Calcium 8.8 Phosphorus 4.2 Magnesium 2.2 Total Bilirubin 1.0 AST 38 ALT 15 Alkaline Phosphatase 76 Total Protein 7.0 Albumin 3.8 Globulin 3.1 Albumin/Globulin Ratio 1.2 Procalcitonin Venous Blood Potassium 5.3 H Blood Type O POSITIVE Blood Type Confirm Antibody Screen Negative Crossmatch See Detail BBK History Checked No verified bt 07/11/18 07/11/18 07/11/18 17:58 17:58 18:24 WBC 18.5 H D RBC 4.77 Hgb 14.9 D Hct 47.6 MCV 99.8 MCH 31.2 MCHC 31.3 RDW 16.2 H Plt Count 223 MPV 11.5 H Gran % 90.2 H Lymph % (Auto) 4.0 L [place] % (Auto) 5.6 Eos % (Auto) 0.1 L Baso % (Auto) 0.1 Gran # 16.71 H Lymph # (Auto) 0.7 L [place] # (Auto) 1.0 H Eos # (Auto) 0.0 Baso # (Auto) 0.01 PT 13.1 H INR 1.15 APTT 33.2 pO2 VBG pH VBG pCO2 VBG HCO3 VBG Total CO2 VBG O2 Sat (Calc) VBG Base Excess VBG Potassium Glucose Lactate FiO2 Sodium Potassium Chloride Carbon Dioxide Anion Gap BUN Creatinine Est GFR ( Amer) Est GFR (Non-Af Amer) Random Glucose Calcium Phosphorus Magnesium Total Bilirubin AST ALT Alkaline Phosphatase Total Protein Albumin Globulin Albumin/Globulin Ratio Procalcitonin Venous Blood Potassium Blood Type Blood Type Confirm O POSITIVE Antibody Screen Crossmatch BBK History Checked 07/11/18 18:30 WBC 16.3 H RBC 4.49 Hgb 14.0 Hct 44.5 MCV 99.1 MCH 31.2 MCHC 31.5 RDW 16.2 H Plt Count 225 MPV 11.5 H Gran % Lymph % (Auto) [place] % (Auto) 3.1 Eos % (Auto) 0.0 L Baso % (Auto) 0.1 Gran # Lymph # (Auto) [place] # (Auto) 0.5 Eos # (Auto) 0.0 Baso # (Auto) 0.01 PT INR APTT pO2 VBG pH VBG pCO2 VBG HCO3 VBG Total CO2 VBG O2 Sat (Calc) VBG Base Excess VBG Potassium Glucose Lactate FiO2 Sodium Potassium Chloride Carbon Dioxide Anion Gap BUN Creatinine Est GFR ( Amer) Est GFR (Non-Af Amer) Random Glucose Calcium Phosphorus Magnesium Total Bilirubin AST ALT Alkaline Phosphatase Total Protein Albumin Globulin Albumin/Globulin Ratio Procalcitonin Venous Blood Potassium Blood Type Blood Type Confirm Antibody Screen Crossmatch BBK History Checked Attending/Attestation - Attestation I have personally seen and examined this patient.: Yes I have fully participated in the care of the patient.: Yes I have reviewed all pertinent clinical information: Yes Notes (Text): This is an addendum to GI consult report dictated by the GI Fellow.The patient was seen and examined earlier. Medical records, lab studies, imagings were reviewed. Last 24 hours events reviewed. Agreed with the above treatment plan as outlined in GI Fellow 's notes with the addition of the following Emergency stat consult requested for GI bleeding Episodes of coffee ground vomitous Patient is lethargic On BIPAP NG tube was repositioned Nearly one liter of coffee ground vomitous drained bradycardia episodes noted Originally planned for further cardiac evaluation On examination abdomen soft No mass Upper GI bleeding Previous EGD in 2015 was reviewed found to only have duodenal diverticulitis and hiatus hernia 3cm Patient's DNR/DNI status noted Patient has critical aortic stenosis Too unstable for endoscopic procedure Discussed with hospitalist Patient may need intubation but patient is DNR DNI Prognosis is very guarded Awaiting for transfer to ICU Conservative management PPI Close followup of hemoglobin and hematocrit IV protonix 07/11/18 22:58
--- NOTE | 2018-07-11 19:58 | CP.PCM.PN ---
Subjective - Date & Time of Evaluation Date of Evaluation: 07/11/18 Time of Evaluation: 19:53 - Subjective Subjective: PGY-2 ICU progress note for Dr Cooper At 1736 Physician notified that patient was having episodes of hemoptysis. Patient was assessed immediately at bedside, HR ranging from 60-140; Normotensive; NG Tube inserted, confirmed w/ XRay 500CC + CC coffee ground emesis suctioned NG Lavage performed GI and ICU consulted Pt. is transferred to ICU GI Recommended conservative management for now 2U PRBC type + cross matched CBC performed twice Hb 14.9 and 14.0 Started on protonix drip + NS @ 100/hr Of note, patient was made DNR/DNI today. Palliative discussed this option with the patient and POA and it was decided patient will be DNR/DNI. POLST has been completed. Objective - Vital Signs/Intake and Output Vital Signs (last 24 hours): Temp Pulse Resp BP Pulse Ox 98.4 F 54 L 19 118/82 93 L 07/11/18 16:34 07/11/18 16:34 07/11/18 16:34 07/11/18 16:34 07/11/18 16:34 - Medications Medications: Current Medications Albuterol/Ipratropium (Duoneb 3 Mg/0.5 Mg (3 Ml) Ud) 3 ml IH [id number] [facility] Last Admin: 07/11/18 13:52 Dose: 3 ml Carbidopa/Levodopa/Entacapone (Stalevo 150) 1 tab PO TID [facility] Last Admin: 07/11/18 14:51 Dose: 1 tab Guaifenesin (Mucinex La) 600 mg PO BID [facility] Levofloxacin/Dextrose (Levaquin 750mg) 750 mg in 150 mls @ 100 mls/hr IVPB DAILY [facility]; Protocol Last Admin: 07/11/18 10:05 Dose: 100 mls/hr Meropenem (Merrem Iv 1 Gm Premix) 1 gm in 50 mls @ 100 mls/hr IVPB Q8 [facility]; Protocol Last Admin: 07/11/18 14:52 Dose: 100 mls/hr Pantoprazole Sodium (Protonix 40mg Ivpb) 40 mg in 100 mls @ 20 mls/hr IVPB .Q5H [facility] Sodium Chloride (Sodium Chloride 0.9%) 1,000 mls @ 100 mls/hr IV .Q10H [facility] Stop: 07/12/18 04:04 Methylprednisolone (Solu-Medrol) 20 mg IVP Q12 [facility] Stop: 07/11/18 22:01 Last Admin: 07/11/18 10:04 Dose: 20 mg Mirtazapine (Remeron) 15 mg PO HS [facility] Last Admin: 07/10/18 21:21 Dose: 15 mg Pramipexole Dihydrochloride (Mirapex) 1 mg PO TID [facility] Last Admin: 07/11/18 14:51 Dose: 1 mg - Labs Labs: 07/11/18 18:30 07/11/18 17:55 PT 13.1 SECONDS (9.4-12.5) H 07/11/18 17:58 INR 1.15 07/11/18 17:58 APTT 33.2 Seconds (25.1-36.5) 07/11/18 17:58
[2018-07-11] MEDS: Pantoprazole 40mg/100mL NS 40 MG/100 ML BAG IVPB SCH (20:01)
[2018-07-11] MEDS: guaiFENesin 600 mg ER Tab PO SCH (20:17)
[2018-07-11] MEDS ORDERED: Amiodarone 150 mg/D5W 100 ml 150 MG/100 ML BAG IVPB ONE (21:08)
[2018-07-11] MEDS ORDERED: Amiodarone 360 mg/D5W 200 ml 360 MG/200 ML BAG IV SCH ×2 (21:15)
[2018-07-11 23:36] LABS: BASO # 0.01 K/mm3 (0.0-2.0); BASO % 0.1 % (0.0-3.0); GRAN # 17.77 (1.4-6.5); GRAN % 90.4 % (50.0-68.0); HEMOGLOBIN 13.2 g/dL (14.0-18.0); LYMPH # 1.8 (1.2-3.4); LYMPH % 9.3 % (22.0-35.0); MEAN CELL VOLUME 100.5 fl (80.0-105.0); MEAN CORPUSCULAR HEMOGLOBIN 30.6 pg (25.0-35.0); MEAN CORPUSCULAR HGB CONC 30.5 g/dl (31.0-37.0); MEAN PLATELET VOLUME 11.4 fl (7.0-11.0); MONO % 0.2 % (1.0-6.0); RBC 4.31 10^6/uL (3.5-6.1); RED CELL DISTRIBUTION WIDTH 16.2 % (11.5-14.5); WHITE BLOOD COUNT 19.6 10^3/ul (4.5-11.0)
[2018-07-12] MEDS: Albuterol-Ipratrop 3 mg / 0.5 (3 ml) UD IH SCH ×5 (00:30→22:04)
[2018-07-12] MEDS: Pantoprazole 40mg/100mL NS 40 MG/100 ML BAG IVPB SCH ×2 (00:56→06:11)
[2018-07-12 02:31] LABS: GRAN # 19.15 (1.4-6.5); GRAN % 91.4 % (50.0-68.0); HEMOGLOBIN 13.2 g/dL (14.0-18.0); LYMPH # 1.3 (1.2-3.4); LYMPH % 6.1 % (22.0-35.0); MEAN CELL VOLUME 100.2 fl (80.0-105.0); MEAN CORPUSCULAR HGB CONC 30.9 g/dl (31.0-37.0); MEAN PLATELET VOLUME 11.7 fl (7.0-11.0); MONO # 0.5 (0.1-0.6); MONO % 2.5 % (1.0-6.0); RBC 4.26 10^6/uL (3.5-6.1); RED CELL DISTRIBUTION WIDTH 16.3 % (11.5-14.5)
[2018-07-12] MEDS: Amiodarone 360 mg/D5W 200 ml 360 MG/200 ML BAG IV SCH ×2 (04:01→17:32)
--- NOTE | 2018-07-12 05:40 | CP.PCM.PN ---
<Mike Richmond - Last Filed: 07/12/18 16:34> Subjective - Date & Time of Evaluation Date of Evaluation: 07/12/18 Time of Evaluation: 05:40 - Subjective Subjective: Mike Richmond DO PGY1 - Internal Medicine Outpatient Facility Physical Therapist - Hospital Progress Note Patient seen and examined at bedside this morning in ICU. Overnight patient had several episodes of hemetemesis. NG inserted and 1300cc coffee ground emesis returned. Patient subsequently became lethargic, placed on bipap, and transferred to ICU. For further detailed information please refer to addendum from 07/11 Progress note. Overnight patient had several episodes of VTach. This morning patient is lethargic on examination on bipap. 12 system ROS unobtainable at this time. Objective - Vital Signs/Intake and Output Vital Signs (last 24 hours): Temp Pulse Resp BP Pulse Ox 97.6 F 124 H 24 147/105 H 96 07/12/18 00:00 07/12/18 03:05 07/12/18 01:14 07/12/18 01:15 07/12/18 00:20 - Medications Medications: Current Medications Albuterol/Ipratropium (Duoneb 3 Mg/0.5 Mg (3 Ml) Ud) 3 ml IH [id number] [facility] Last Admin: 07/12/18 02:47 Dose: 3 ml Carbidopa/Levodopa/Entacapone (Stalevo 150) 1 tab PO TID [facility] Last Admin: 07/11/18 20:18 Dose: Not Given Guaifenesin (Mucinex La) 600 mg PO BID [facility] Last Admin: 07/11/18 20:17 Dose: Not Given Meropenem (Merrem Iv 1 Gm Premix) 1 gm in 50 mls @ 100 mls/hr IVPB Q8 [facility]; Protocol Last Admin: 07/11/18 22:57 Dose: 100 mls/hr Pantoprazole Sodium (Protonix 40mg Ivpb) 40 mg in 100 mls @ 20 mls/hr IVPB .Q5H [facility] Last Admin: 07/12/18 00:56 Dose: 20 mls/hr Amiodarone HCl/Dextrose (Nexterone 360 Mg In D5w 200 Ml (Premix)) 360 mg in 200 mls @ 16.667 mls/hr IV .Q12H [facility]; Protocol Last Admin: 07/12/18 04:01 Dose: 16.667 mls/hr Mirtazapine (Remeron) 15 mg PO HS [facility] Last Admin: 07/11/18 22:14 Dose: Not Given Pramipexole Dihydrochloride (Mirapex) 1 mg PO TID [facility] Last Admin: 07/11/18 20:16 Dose: Not Given - Labs Labs: 07/12/18 02:03 07/11/18 17:55 PT 13.1 SECONDS (9.4-12.5) H 07/11/18 17:58 INR 1.15 07/11/18 17:58 APTT 33.2 Seconds (25.1-36.5) 07/11/18 17:58 - Constitutional Appears: Ill, Uncomfortable, On bipap - Head Exam Head Exam: ATRAUMATIC, NORMOCEPHALIC - ENT Exam ENT Exam: Mucous Membranes Moist - Respiratory Exam Respiratory Exam: Ronchorous breath sounds BL all ding, Bilateral Crackles - Cardiovascular Exam Cardiovascular Exam: RRR, +S1, +S2, Murmur (Aortic Stenosis ) - GI/Abdominal Exam GI & Abdominal Exam: Soft. absent: Tenderness - Extremities Exam Extremities Exam: Normal Inspection - Neurological Exam Neurological Exam: Lethargic/ Somnolent; - Skin Skin Exam: Dry, Intact, Normal Color, Warm Assessment and Plan - Assessment and Plan (Free Text) Assessment: 88M PMH of CHF, HTN, Pulm HTN, COPD, NSTEMI, Porstate Ca, Parkinsons, Presented to [facility] 07/06 w/ AMS and c/o coughing, gurgling and unresponsiveness. Patient was found to have hyeprcapnic respiratory failure subsequently intubated and transferred to MICU for management of severe sepsis w/ acute toxic metabolic encephalopathy 2/2 severe R sided PNA. Patient was extubated 07/08 and transferred to med/surg. Hospital course was complicated on 07/12 with acute GI Bleed w/ hemetemesis as well as acute hypercapnic respiratory failure; developed VTach while in ICU. Plan: GI Bleed: 1300cc coffee ground emesis removed via NG No further active hemetemsis reported after transfer to ICU 2U PRBC typed + crossed; not transfused Hb has remained >13.0 since episodes of hemetemsis DC Protonix GTT Start Protonix 40 Q12 C/w NPO DC NS @ 100cc/hr Start D5 Bicarb @ 100cc/hr Conservative management as per GI GI Following, appreciate reccs Hypercapnic respiratory failure in setting of COPD exacerbation and GI Bleed C/w Bipap at this time pH 7.12 this afternoon; initially 7.09 last night Start bicarb drip as above Further management as per ICU team Vtach PMHx Paroxysmal Afib Rate control w/ Amiodarone GTT Avoid tachy / shae syndrome Cardiology following, appreciate reccs Sepsis 2/2 HCAP ; new concerns w/ aspiration pna C/w Merrem, Levaquin Started vancomycin Blood Cx 2/2 negative at this time Sputum Cx - yeast most likely colonizer Repeat CXR shows no change in infiltrates; from prior studies Legionella negative PCT improved from admission ID following appreciate reccs Severe Aortic Stenosis Given recent events; plans for cardiac intervention will be post Hyperkalemia: D5 + Insulin admin this AM ; f/u K+ levels Hyperphosphatemia: Repeat level in AM Hx HTN: Hypo/Normotensive at this time w/o Rx Continue holding; address as needed Hx Alzhemiers C/w Carbidopa/Levodopa Hx Parkinsons C/w Pamiprexole DVT PPX - Holding heparin for now; c/w SCD GI PPX - Protonix Code Status: Patient is currently DNR/DNI as per palliative care consultation w/ patient. DISPO: Continued ICU management; Defer to palliative care in regards to if patient is RECLAMATION ENGINEER Patient seen, examined, and discussed w/ attending physician Mike Richmond DO PGy1 - Internal medicine Outpatient Facility Physical Therapist - Pager [phone] <Monica Richmond R - Last Filed: 07/16/18 20:48> Objective - Vital Signs/Intake and Output Vital Signs (last 24 hours): Temp Pulse Resp BP Pulse Ox 97.1 F L 62 5 L 95/44 L 95 07/12/18 11:50 07/13/18 09:50 07/13/18 10:05 07/13/18 08:09 07/13/18 09:10 - Labs Labs: 07/12/18 14:00 07/13/18 05:26 PT 13.1 SECONDS (9.4-12.5) H 07/11/18 17:58 INR 1.15 07/11/18 17:58 APTT 33.2 Seconds (25.1-36.5) 07/11/18 17:58 Attending/Attestation - Attestation I have personally seen and examined this patient.: Yes I have fully participated in the care of the patient.: Yes I have reviewed all pertinent clinical information, including history, physical exam and plan: Yes Notes (Text): Patient seen and examined by me with resident at 9:40AM on 07/12/18 with resident. Case including HPI, physical exam, and assessment and plan discussed with resident. Agree with above with following additions/corrections. Patient is a 88-year-old male with past medical history significant for CHF, hypertension, pulmonary hypertension, COPD, coronary artery disease, prostate cancer, paroxysmal atrial fibrillation, BPH, and Parkinson's disease and that presented to the emergency room with unresponsiveness. Patient is on BIPAP. Opens eyes but lethargic. Not answering questions. Patient with nonsustained vtach overnight. Started on amiodarone drip. No other issues overnight per nurse. Patient afebrile. Physical exam: Gen: Lethargic sitting up in bed with bipap HEENT: Normocephalic, atraumatic. BIPAP in place. NGT in place with no output. Cardiovascular: Irregular S1, S2. Positive systolic murmur. No rubs or gallops appreciated Pulmonary: On BIPAP. Decreased breath sounds throughout. Coarse breath sounds throughout. No wheezing appreciated. Gastrointestinal: Soft. Nondistended. Nontender. Positive bowel sounds all 4 quadrants, no guarding. Musculoskeletal: Moves all extremities. No calf tenderness. Positive bilateral lower extremity edema Central nervous system: Lethargic. Opens eyes. Not answering questions. Dermatologic: Skin warm and dry. Assessment and plan: Patient is a 88-year-old male with past medical history significant for CHF, hypertension, pulmonary hypertension, COPD, NSTEMI, prostate cancer, paroxysmal atrial fibrillation, BPH, and Parkinson's disease and that presented to the emergency room with unresponsiveness. 1. Acute hypercapnic respiratory failure. On BiPAP. Patient is DNR/DNI. ABG reviewed. Started on bicarb drip. Continue to monitor. 2. Coffee ground emesis. Appears to be resolved. Patient had 1300ml output via NGT yesterday. No output this morning. H&H stable. Continue protonix. GI following, recommendations appreciated. 3. Nonsustained Vtach. Patient on amiodarone drip. Cardiology following, recommendations appreciated. 4. Sepsis secondary to right-sided pneumonia. Now with possible aspiration. Patient made NPO. Continue IV fluids. ID following, recommendations appreciated. Continue meropenem and Levaquin. Vancomycin added. Patient afebrile. Leukocytosis uptrending. Chest x-ray 07/11/2018 per radiology showed nasogastric tube terminates at distal esophagus, stable bilateral basilar infiltrates and small bilateral pleural effusions, mild pulmonary vascular congestion. 5. Toxic metabolic encephalopathy. Likely secondary to acute respiratory failure and hypercapnia. Continue with BiPAP. Continue supportive care. 6. Paroxysmal atrial fibrillation. Severe aortic stenosis. 2-D echo per mattress renovator shows normal chamber size with EF of 65%, moderate to severe valvular aortic stenosis, trace aortic regurgitation, mitral regurgitation is mild, moderate tricuspid regurgitation, no pericardial effusion. Cardiology following, recommendations appreciated. Palliative care following, recommendations appreciated. Patient DNR/DNI. 7. COPD exacerbation. Continue nebulizer treatments. Continue BIPAP 8. Parkinson's. Continue Carbidopa/levodopa/entacapone. Continue Remeron. Continue Mirapex 9. GI/DVT prophylaxis. Protonix/Heparin subcutaneous. 10. Advanced directive. Patient is a DNR/DNI. Case was discussed in detail with MASTER Alex regarding current diagnosis and treatment plan.
[2018-07-12] MEDS: Meropenem IV 1 gm in NS 1 GM/50 ML BAG IVPB SCH ×3 (06:06→22:17)
[2018-07-12 06:24] LABS: BASO # 0.01 K/mm3 (0.0-2.0); GRAN # 20.81 (1.4-6.5); GRAN % 92.7 % (50.0-68.0); HEMOGLOBIN 13.5 g/dL (14.0-18.0); LYMPH # 1.1 (1.2-3.4); MEAN CELL VOLUME 101.4 fl (80.0-105.0); MEAN CORPUSCULAR HEMOGLOBIN 30.6 pg (25.0-35.0); MEAN CORPUSCULAR HGB CONC 30.2 g/dl (31.0-37.0); MEAN PLATELET VOLUME 11.3 fl (7.0-11.0); MONO # 0.5 (0.1-0.6); MONO % 2.3 % (1.0-6.0); RBC 4.41 10^6/uL (3.5-6.1); RED CELL DISTRIBUTION WIDTH 16.3 % (11.5-14.5); WHITE BLOOD COUNT 22.5 10^3/ul (4.5-11.0)
[2018-07-12 07:22] LABS: ALB/GLOB RATIO 1.2 (1.1-1.8); ALBUMIN 3.3 g/dL (3.0-4.8); ALT/SGPT 16 U/L (7-56); AST/SGOT 40 U/L (17-59); BLOOD UREA NITROGEN 41 mg/dL (7-21); CALCIUM 8.5 mg/dL (8.4-10.5); GFR NON-AFRICAN AMERICAN > 60
--- NOTE | 2018-07-12 07:39 | CP.PCM.PN ---
<Js Trujillo - Last Filed: 07/12/18 11:12> Subjective - Date & Time of Evaluation Date of Evaluation: 07/12/18 Time of Evaluation: 09:35 - Subjective Subjective: PGY-4 GI Fellow Prog Note Pt altered and wearing BiPAP during encounter. Hgb stable overnight w/o transfusions. Unable to obtain ROS due to clinical condition Objective - Vital Signs/Intake and Output Vital Signs (last 24 hours): Temp Pulse Resp BP Pulse Ox 97.6 F 124 H 24 147/105 H 96 07/12/18 00:00 07/12/18 03:05 07/12/18 01:14 07/12/18 01:15 07/12/18 00:20 - Medications Medications: Current Medications Albuterol/Ipratropium (Duoneb 3 Mg/0.5 Mg (3 Ml) Ud) 3 ml IH [id number] [facility] Last Admin: 07/12/18 02:47 Dose: 3 ml Carbidopa/Levodopa/Entacapone (Stalevo 150) 1 tab PO TID [facility] Last Admin: 07/11/18 20:18 Dose: Not Given Guaifenesin (Mucinex La) 600 mg PO BID [facility] Last Admin: 07/11/18 20:17 Dose: Not Given Meropenem (Merrem Iv 1 Gm Premix) 1 gm in 50 mls @ 100 mls/hr IVPB Q8 [facility]; Protocol Last Admin: 07/12/18 06:06 Dose: 100 mls/hr Pantoprazole Sodium (Protonix 40mg Ivpb) 40 mg in 100 mls @ 20 mls/hr IVPB .Q5H [facility] Last Admin: 07/12/18 06:11 Dose: 20 mls/hr Amiodarone HCl/Dextrose (Nexterone 360 Mg In D5w 200 Ml (Premix)) 360 mg in 200 mls @ 16.667 mls/hr IV .Q12H [facility]; Protocol Last Admin: 07/12/18 04:01 Dose: 16.667 mls/hr Levofloxacin/Dextrose (Levaquin 750mg) 750 mg in 150 mls @ 100 mls/hr IVPB DAILY [facility]; Protocol Vancomycin HCl (Vancomycin 1gm) 1 gm in 250 mls @ 167 mls/hr IVPB Q12H [facility]; Protocol Mirtazapine (Remeron) 15 mg PO HS [facility] Last Admin: 07/11/18 22:14 Dose: Not Given Pramipexole Dihydrochloride (Mirapex) 1 mg PO TID [facility] Last Admin: 07/11/18 20:16 Dose: Not Given - Labs Labs: 07/12/18 05:30 07/12/18 05:30 PT 13.1 SECONDS (9.4-12.5) H 07/11/18 17:58 INR 1.15 07/11/18 17:58 APTT 33.2 Seconds (25.1-36.5) 07/11/18 17:58 - Constitutional Appears: In Acute Distress, Unkempt, Confused, Chronically Ill - Eye Exam Eye Exam: Conjunctival injection. absent: Scleral icterus - ENT Exam ENT Exam: Mucous Membranes Dry, Normal External Ear Exam - Respiratory Exam Respiratory Exam: Accessory Muscle Use, Respiratory Distress. absent: NORMAL BREATHING PATTERN - Cardiovascular Exam Cardiovascular Exam: Tachycardia, REGULAR RHYTHM - GI/Abdominal Exam GI & Abdominal Exam: Distended (mildly), Soft, Normal Bowel Sounds. absent: Bruit, Firm, Guarding, Rigid, Tenderness, Mass, Organomegaly, Pulsatile Mass, Rebound Assessment and Plan - Assessment and Plan (Free Text) Assessment: 88 yo WM with Aortic stenosis, Afib, pHTN, Parkinsons, COPD admitted for respiratory failure and AMS on 07/06, now has coffee-ground emesis. # Hematemesis: Coffee ground with >1 L output from NG. Has risk factors of recent steroid use and subQ herpain use to put at risk for GI bleed. Surprisingly, Hgb stable overnight, therefore wonder if was large amount of old blood that was finally thrown up? Nonetheless, pt mental status/clinical status not stable for EGD without intubation which is not within patient's goals of care. # Goals of Care: Pt recent had extensive discussion with staff and was deemed to have decision making capacity for himself on 07/10/18. Patients wishes are to be DNR/DNI. Plan: - Supportive care with PPI gtt -> IV BID today - Monitor Hgb q 8 hrs, transfuse if < 7 - IVF support - 2 large bore IVs - No plans for endoscopy at this time as patient is too unstable. Furthermore, pt would need intubation at current status but that would not be within patient's desired goals of care. Therefore, need to optimize medically Pt seen and examined with Dr. Esquivel; see attestation for further rec s/changes. <Janine Esquivel V - Last Filed: 07/12/18 22:56> Objective - Vital Signs/Intake and Output Vital Signs (last 24 hours): Temp Pulse Resp BP Pulse Ox 97.1 F L 86 19 106/47 L 97 07/12/18 11:50 07/12/18 18:10 07/12/18 18:00 07/12/18 18:00 07/12/18 18:10 Intake and Output: 07/12/18 07/13/18 18:59 06:59 Intake Total 1080 Output Total 50 Balance 1030 - Medications Medications: Current Medications Albuterol/Ipratropium (Duoneb 3 Mg/0.5 Mg (3 Ml) Ud) 3 ml IH [id number] [facility]IL[facility]IA Last Admin: 07/12/18 22:04 Dose: 3 ml Carbidopa/Levodopa/Entacapone (Stalevo 150) 1 tab PO TID [facility] Last Admin: 07/12/18 17:31 Dose: Not Given Guaifenesin (Mucinex La) 600 mg PO BID [facility] Last Admin: 07/12/18 17:31 Dose: Not Given Meropenem (Merrem Iv 1 Gm Premix) 1 gm in 50 mls @ 100 mls/hr IVPB Q8 [facility]; Protocol Last Admin: 07/12/18 22:17 Dose: 100 mls/hr Amiodarone HCl/Dextrose (Nexterone 360 Mg In D5w 200 Ml (Premix)) 360 mg in 200 mls @ 16.667 mls/hr IV .Q12H [facility]; Protocol Last Admin: 07/12/18 17:32 Dose: 16.667 mls/hr Levofloxacin/Dextrose (Levaquin 750mg) 750 mg in 150 mls @ 100 mls/hr IVPB DA [facility]; Protocol Last Admin: 07/12/18 10:08 Dose: 100 mls/hr Vancomycin HCl (Vancomycin 1gm) 1 gm in 250 mls @ 167 mls/hr IVPB Q12H [facility]; Protocol Last Admin: 07/12/18 17:36 Dose: 167 mls/hr Sodium Bicarbonate 150 meq/ (Dextrose) 1,150 mls @ 100 mls/hr IV .[id number] [facility] Last Admin: 07/12/18 15:05 Dose: 100 mls/hr Mirtazapine (Remeron) 15 mg PO HS [facility] Last Admin: 07/12/18 22:45 Dose: Not Given Pantoprazole Sodium (Protonix Inj) 40 mg IVP Q12 [facility] Last Admin: 07/12/18 22:17 Dose: 40 mg Pramipexole Dihydrochloride (Mirapex) 1 mg PO TID [facility] Last Admin: 07/12/18 17:31 Dose: Not Given - Labs Labs: 07/12/18 14:00 07/12/18 05:30 PT 13.1 SECONDS (9.4-12.5) H 07/11/18 17:58 INR 1.15 07/11/18 17:58 APTT 33.2 Seconds (25.1-36.5) 07/11/18 17:58 Attending/Attestation - Attestation I have personally seen and examined this patient.: Yes I have fully participated in the care of the patient.: Yes I have reviewed all pertinent clinical information, including history, physical exam and plan: Yes Notes (Text): This is an addendum to GI consult report dictated by the Primary Counselor.The patient was seen and evaluated earlier. Medical records, lab studies, imagings were reviewed. Last 24 hours events reviewed. Agreed with the above treatment plan as outlined in Primary Counselor 's notes with the addition of the following NG tube clamped recommended to check residual every 4-6 hours Hemoglobin appears relatively stable Check NG tube gastric residual Change Protonix to every 12 hourly dose Close follow-up of hemoglobin Continue supportive care 07/12/18 22:48
[2018-07-12] MEDS ORDERED: Insulin Regular 1 UNITS/0.01 ML ML IV ONE (07:49)
[2018-07-12] MEDS ORDERED: Dextrose 50% SYRINGE Inj (50 ml) IVP ONE (07:49)
[2018-07-12] MEDS: Vancomycin 1gm in NS 250ml 1 GM/250 ML BAG IVPB SCH ×2 (07:57→17:36)
[2018-07-12] MEDS ORDERED: levoFLOXacin 750 mg in D5W 750 MG/150 ML BAG IVPB SCH (10:00)
[2018-07-12] MEDS: guaiFENesin 600 mg ER Tab PO SCH ×2 (10:05→17:31)
[2018-07-12] MEDS: Carbidopa/Levodopa/Entacapone 37.5mg-150mg-200mg PO SCH ×3 (10:05→17:31)
--- NOTE | 2018-07-12 10:06 | RAD ---
Date of service: 07/11/2018 HISTORY: Hemetemesis/ Aspiration COMPARISON: Portable chest 07/11/2018 10:38 a.m.. FINDINGS: LUNGS: Nasogastric tube is in place with tip turning the distal esophagus. Advanced the catheter some 15-20 cm further into the stomach and follow-up with confirmation radiography. Bibasilar infiltrates persist with small bilateral pleural effusions unchanged, remaining greater at the right than the left. No pneumothorax bilaterally. PLEURA: As above. CARDIOVASCULAR: Stable cardiac silhouette. Mild pulmonary vascular congestion suggested. OSSEOUS STRUCTURES: No significant abnormalities. VISUALIZED UPPER ABDOMEN: Normal. OTHER FINDINGS: None. IMPRESSION: Nasogastric tube terminates at the distal esophagus. Advancing the catheter into the stomach followed by confirmation radiography recommended. Stable bilateral basilar infiltrates and small bilateral pleural effusions as per above. Mild pulmonary vascular congestion suggested.
[2018-07-12 10:12] LABS: GRAN # 19.76 (1.4-6.5); GRAN % 92.4 % (50.0-68.0); HEMOGLOBIN 13.1 g/dL (14.0-18.0); LYMPH % 4.7 % (22.0-35.0); MEAN CELL VOLUME 101.2 fl (80.0-105.0); MEAN CORPUSCULAR HEMOGLOBIN 31.3 pg (25.0-35.0); MEAN CORPUSCULAR HGB CONC 30.9 g/dl (31.0-37.0); MEAN PLATELET VOLUME 11.3 fl (7.0-11.0); MONO # 0.6 (0.1-0.6); MONO % 2.9 % (1.0-6.0); RBC 4.19 10^6/uL (3.5-6.1); RED CELL DISTRIBUTION WIDTH 16.3 % (11.5-14.5); WHITE BLOOD COUNT 21.4 10^3/ul (4.5-11.0)
--- NOTE | 2018-07-12 10:13 | CARD ---
APPROVED REPORT Date of service: 07/11/2018 EKG Measurement Heart [id number] [place] [id number] <Conclusion> Marked sinus bradycardia with 1st degree AV block with occasional and consecutive premature ventricular complexes and fusion. Upto 4 PVCs in a Row. Poor R Progression i n V Leads.
[2018-07-12 11:51] VITALS: TEMP 97.1
[2018-07-12 12:47] LABS: ARTERIAL BLOOD GAS HCO3 30.6 mmol/L (21-28); ARTERIAL BLOOD GAS HEMOGLOBIN 12.4 g/dL (11.7-17.4); ARTERIAL BLOOD GAS O2 CONTENT 16.7 ML/dl (15-23); ARTERIAL BLOOD GAS O2 SAT 98.5 % (95-98); ARTERIAL BLOOD GAS TCO2 34.1 mmol.L (22-28)
[2018-07-12 12:49] LABS: ARTERIAL BLOOD GAS PH 7.04 (7.35-7.45)
[2018-07-12 12:50] LABS: ARTERIAL BLOOD GAS PCO2 113 mm/Hg (35-45)
--- NOTE | 2018-07-12 13:24 | CP.PCM.PN ---
Subjective - Date & Time of Evaluation Date of Evaluation: 07/12/18 Time of Evaluation: 11:00 - Subjective Subjective: somnolent, unable follow command. BIPAP in use Objective - Vital Signs/Intake and Output Vital Signs (last 24 hours): Temp Pulse Resp BP Pulse Ox 97.1 F L 67 19 101/39 L 96 07/12/18 11:50 07/12/18 11:30 07/12/18 11:30 07/12/18 11:00 07/12/18 11:30 Intake and Output: 07/12/18 07/12/18 06:59 18:59 Intake Total 690 Output Total 675 Balance 15 - Medications Medications: Current Medications Albuterol/Ipratropium (Duoneb 3 Mg/0.5 Mg (3 Ml) Ud) 3 ml IH [id number] [facility] Last Admin: 07/12/18 07:53 Dose: 3 ml Carbidopa/Levodopa/Entacapone (Stalevo 150) 1 tab PO TID [facility] Last Admin: 07/12/18 10:05 Dose: Not Given Guaifenesin (Mucinex La) 600 mg PO BID [facility] Last Admin: 07/12/18 10:05 Dose: Not Given Meropenem (Merrem Iv 1 Gm Premix) 1 gm in 50 mls @ 100 mls/hr IVPB Q8 [facility]; Protocol Last Admin: 07/12/18 06:06 Dose: 100 mls/hr Amiodarone HCl/Dextrose (Nexterone 360 Mg In D5w 200 Ml (Premix)) 360 mg in 200 mls @ 16.667 mls/hr IV .Q12H [facility]; Protocol Last Admin: 07/12/18 04:01 Dose: 16.667 mls/hr Levofloxacin/Dextrose (Levaquin 750mg) 750 mg in 150 mls @ 100 mls/hr IVPB DAILY [facility]; Protocol Last Admin: 07/12/18 10:08 Dose: 100 mls/hr Vancomycin HCl (Vancomycin 1gm) 1 gm in 250 mls @ 167 mls/hr IVPB Q12H [facility]; Protocol Last Admin: 07/12/18 07:57 Dose: 167 mls/hr Mirtazapine (Remeron) 15 mg PO HS [facility] Last Admin: 07/11/18 22:14 Dose: Not Given Pantoprazole Sodium (Protonix Inj) 40 mg IVP Q12 [facility] Pramipexole Dihydrochloride (Mirapex) 1 mg PO TID [facility] Last Admin: 07/12/18 10:05 Dose: Not Given - Labs Labs: 07/12/18 09:30 07/12/18 05:30 PT 13.1 SECONDS (9.4-12.5) H 07/11/18 17:58 INR 1.15 07/11/18 17:58 APTT 33.2 Seconds (25.1-36.5) 07/11/18 17:58 - Constitutional Appears: Cachectic, Chronically Ill - Head Exam Head Exam: NORMOCEPHALIC - Eye Exam Eye Exam: Normal appearance Pupil Exam: NORMAL ACCOMODATION - ENT Exam ENT Exam: Mucous Membranes Moist - Respiratory Exam Respiratory Exam: Accessory Muscle Use, Decreased Breath Sounds, Wheezes - Cardiovascular Exam Cardiovascular Exam: Irregular Rhythm, +S1, +S2 - GI/Abdominal Exam GI & Abdominal Exam: Hypoactive Bowel Sounds - Neurological Exam Neurological Exam: Altered - Skin Skin Exam: Dry, Warm Assessment and Plan - Assessment and Plan (Free Text) Assessment: 88 year old male with history of COPD, Parkinson,'s HTN,who was admitted with SURAJ pneumonia,sepsis, aortic stenosis and AMS. Last evening the patient had an episode of coffee ground emisis, NG tube placed. Not a candidate for EGD. Respiratory distress> BIPAP The patient and I met yesterday, he was alert and oriented and able to affirm he is DNR/ DNI. A POLST was completed. The patient's condition has deteriorated since we met yesterday, he is altered,hypotensive and in respiratory failure, now on BIPAP. As per patients Advance Directive, if his condition is terminal or irreversible, he does not want life prolonging treatment and prefers to comfortably/naturally. Several messages left for health care POA, Teresa Smith regarding patients condition. Attempted to contact his friend/financial POA Matt Alex and electronics recycler Ed to make them aware of patient condition. called for spiritual support/last rights. Teresa Smith [phone]. Dr Hidalgo was able to speak with Teresa vang and updated her of patients condition. Plan: POLST: DNR/DNI Goals of care:As per Advanced Directive consider transitioning to comfort care if patient's condition continues to deteriorate Respiratory failure: On BIPAP, duonebs,monitor ABG's Supportive care, PPI Sepsis: Continue Merrem, Vancomycin
--- NOTE | 2018-07-12 14:21 | CP.CCUPN ---
Addendum entered and electronically signed by Phu Muniz DO 07/12/18 15:16: Correction: BiPap settings were 26/8, RR: 18, FiO2:100% Original Note: <Phu Muniz - Last Filed: 07/12/18 14:37> CCU Subjective - Physician Review Subjective (Free Text): Phu Muniz, PGY-1, CCU Progress Note for Dr. Hidalgo Patient seen and examined at bedside. Patient had hematemesis yesterday, respiratory distress, and fatigue yesterday. Patient was moved to the ICU subsequently. Patient today is in respiratory distress with BiPap on at 18/6 with FiO2: 100%. 12-point ROS was not reviewable due to patient's mental status. CCU Objective - Vital Signs / Intake & Output Vital Signs (Last 4 hours): Vital Signs Temp Pulse Resp BP Pulse Ox 07/12/18 14:03 76 07/12/18 13:10 76 20 95 07/12/18 13:00 67 34 H 97/46 L 96 07/12/18 12:50 80 18 95 07/12/18 12:40 74 24 95 07/12/18 12:30 63 22 97 07/12/18 12:20 64 18 94 L 07/12/18 12:10 68 18 95 07/12/18 12:00 59 L 18 101/39 L 96 07/12/18 11:50 97.1 F L 69 20 95 07/12/18 11:40 76 23 96 07/12/18 11:30 67 19 96 07/12/18 11:20 70 23 96 07/12/18 11:10 73 21 95 07/12/18 11:06 72 07/12/18 11:00 77 18 101/39 L 96 07/12/18 10:50 66 21 96 07/12/18 10:48 75 07/12/18 10:40 78 18 98 07/12/18 10:30 78 20 96 07/12/18 10:20 89 22 95 Intake and Output (Last 8hrs): Intake & Output 07/11/18 07/12/18 07/12/18 22:59 06:59 14:59 Intake Total 690 Output Total 675 Balance 15 Weight 202 lb 11.2 oz Intake: IV 690 ANTIBIOTIC 100 Right Forearm 350 Right Hand 240 Output: Urine 675 Urethral (Davis) 675 - Physical Exam Head: Positive for: Atraumatic Conjunctiva: Negative for: Injected Mouth: Positive for: Dry Pharnyx: Negative for: ERYTHEMA Nose (Internal): Positive for: Normal Inspection Neck: Positive for: Normal Range of Motion. Negative for: Meningeal Signs Respiratory/Chest: Positive for: Respiratory Distress, Rales, Rhonchi, Tachypneic. Negative for: Good Air Exchange, Tender to Palpation Cardiovascular: Positive for: Murmurs, Tachycardic Abdomen: Negative for: Tenderness Back: Negative for: CVA Tenderness Upper Extremity: Negative for: Edema Lower Extremity: Positive for: Edema. Negative for: CALF TENDERNESS Neurological: Positive for: Motor Func Grossly Intact Skin: Positive for: Pale Psychiatric: Negative for: Alert, Oriented x 3 - Medications Active Medications: Active Medications Generic Name Dose Route Start Last Admin Trade Name Freq PRN Reason Stop Dose Admin Albuterol/Ipratropium 3 ml 07/06/18 20:00 07/12/18 14:02 Duoneb 3 Mg/0.5 Mg (3 Ml) Ud IH 3 ml [id number] SILVIA Administration Carbidopa/Levodopa/Entacapone 1 tab 07/08/18 18:00 07/12/18 13:29 Stalevo 150 PO Not Given TID SILVIA Guaifenesin 600 mg 07/11/18 18:00 07/12/18 10:05 Mucinex La PO Not Given BID SILVIA Meropenem 1 gm in 50 mls @ 100 mls/hr 07/07/18 14:00 07/12/18 13:30 Merrem Iv 1 Gm Premix IVPB 100 mls/hr Q8 SILVIA Administration Protocol Amiodarone HCl/Dextrose 360 mg in 200 mls @ 16.667 mls/hr 07/12/18 03:15 07/12/18 04:01 Nexterone 360 Mg In D5w 200 Ml (Premix) IV 16.667 mls/hr .Q12H SILVIA Administration Protocol 0.5 MG/MIN Levofloxacin/Dextrose 750 mg in 150 mls @ 100 mls/hr 07/12/18 10:00 07/12/18 10:08 Levaquin 750mg IVPB 100 mls/hr DAILY SILVIA Administration Protocol Vancomycin HCl 1 gm in 250 mls @ 167 mls/hr 07/12/18 06:30 07/12/18 07:57 Vancomycin 1gm IVPB 167 mls/hr Q12H [facility] Administration Protocol Sodium Bicarbonate 150 meq/ 1,150 mls @ 100 mls/hr 07/12/18 13:45 Dextrose IV .[id number] [facility] Mirtazapine 15 mg 07/08/18 22:00 07/11/18 22:14 Remeron PO Not Given HS [facility] Pantoprazole Sodium 40 mg 07/12/18 22:00 Protonix Inj IVP Q12 [facility] Pramipexole Dihydrochloride 1 mg 07/08/18 18:00 07/12/18 13:29 Mirapex PO Not Given TID SIVLIA - Patient Studies Lab Studies: Microbiology Studies 07/06/18 15:00 Blood Culture - Final Blood NO GROWTH AFTER 5 DAYS Gram Stain - Final TEST NOT PERFORMED 07/06/18 14:30 Blood Culture - Final Blood NO GROWTH AFTER 5 DAYS Gram Stain - Final TEST NOT PERFORMED Lab Studies 07/12/18 07/12/18 07/12/18 Range/Units 12:40 09:30 05:42 WBC 21.4 H (4.5-11.0) 10^3/ul RBC 4.19 (3.5-6.1) 10^6/uL Hgb 13.1 L (14.0-18.0) g/dL Hct 42.4 (42.0-52.0) % MCV 101.2 (80.0-105.0) fl MCH 31.3 (25.0-35.0) pg MCHC 30.9 L (31.0-37.0) g/dl RDW 16.3 H (11.5-14.5) % Plt Count 162 (120.0-450.0) 10^3/uL MPV 11.3 H (7.0-11.0) fl Gran % 92.4 H (50.0-68.0) % Lymph % (Auto) 4.7 L (22.0-35.0) % [place] % (Auto) 2.9 (1.0-6.0) % Eos % (Auto) 0.0 L (1.5-5.0) % Baso % (Auto) 0.0 (0.0-3.0) % Gran # 19.76 H (1.4-6.5) Lymph # (Auto) 1.0 L (1.2-3.4) [place] # (Auto) 0.6 (0.1-0.6) Eos # (Auto) 0.0 (0.0-0.7) Baso # (Auto) 0.00 (0.0-2.0) K/mm3 PT (9.4-12.5) SECONDS INR APTT (25.1-36.5) Seconds pCO2 113 H* (35-45) mm/Hg pO2 89.0 (30-55) mm/Hg HCO3 30.6 H (21-28) mmol/L ABG pH 7.04 L* (7.35-7.45) ABG Total CO2 34.1 H (22-28) mmol.L ABG O2 Saturation 98.5 H (95-98) % ABG O2 Content 16.7 (15-23) ML/dl ABG Base Excess -2.8 L (-2.0-3.0) mmol/L ABG Hemoglobin 12.4 (11.7-17.4) g/dL ABG Carboxyhemoglobin 1.9 H (0.5-1.5) % POC ABG HHb (Measured) 1.5 (0-5) % ABG Methemoglobin 1.1 (0.0-3.0) % ABG O2 Capacity 17.0 (16-24) mL/dl VBG pH (7.32-7.43) VBG pCO2 (40-60) VBG HCO3 (21-28) mmol/l VBG Total CO2 (22-28) mmol.L VBG O2 Sat (Calc) (40-65) % VBG Base Excess (0.0-2.0) mmol/L VBG Potassium (3.6-5.2) mmol/L Hgb O2 Saturation 95.5 (95.0-98.0) % Sodium (132-148) mmol/L Chloride (98-107) mmol/L Glucose (75-110) mg/dl Lactate (0.7-2.1) mmol/L FiO2 100.0 % Potassium (3.6-5.0) mmol/L Carbon Dioxide (21-33) mmol/L Anion Gap (10-20) BUN (7-21) mg/dL Creatinine (0.8-1.5) mg/dl Est GFR ( Amer) Est GFR (Non-Af Amer) POC Glucose (mg/dL) 168 H (65-110) mg/dL Random Glucose (70-110) mg/dL Calcium (8.4-10.5) mg/dL Phosphorus (2.5-4.5) mg/dL Magnesium (1.7-2.2) mg/dL Total Bilirubin (0.2-1.3) mg/dL AST (17-59) U/L ALT (7-56) U/L Alkaline Phosphatase (38-126) U/L Total Protein (5.8-8.3) g/dL Albumin (3.0-4.8) g/dL Globulin gm/dL Albumin/Globulin Ratio (1.1-1.8) Procalcitonin (0.19-0.49) NG/ML Venous Blood Potassium (3.6-5.2) mmol/L Blood Type Blood Type Confirm Antibody Screen Crossmatch BBK History Checked 07/12/18 07/12/18 07/12/18 Range/Units 05:30 05:30 02:03 WBC 22.5 H 21.0 H (4.5-11.0) 10^3/ul RBC 4.41 4.26 (3.5-6.1) 10^6/uL Hgb 13.5 L 13.2 L (14.0-18.0) g/dL Hct 44.7 42.7 (42.0-52.0) % MCV 101.4 100.2 (80.0-105.0) fl MCH 30.6 31.0 (25.0-35.0) pg MCHC 30.2 L 30.9 L (31.0-37.0) g/dl RDW 16.3 H 16.3 H (11.5-14.5) % Plt Count 184 189 (120.0-450.0) 10^3/uL MPV 11.3 H 11.7 H (7.0-11.0) fl Gran % 92.7 H 91.4 H (50.0-68.0) % Lymph % (Auto) 5.0 L 6.1 L (22.0-35.0) % [place] % (Auto) 2.3 2.5 (1.0-6.0) % Eos % (Auto) 0.0 L 0.0 L (1.5-5.0) % Baso % (Auto) 0.0 0.0 (0.0-3.0) % Gran # 20.81 H 19.15 H (1.4-6.5) Lymph # (Auto) 1.1 L 1.3 (1.2-3.4) [place] # (Auto) 0.5 0.5 (0.1-0.6) Eos # (Auto) 0.0 0.0 (0.0-0.7) Baso # (Auto) 0.01 0.00 (0.0-2.0) K/mm3 PT (9.4-12.5) SECONDS INR APTT (25.1-36.5) Seconds pCO2 (35-45) mm/Hg pO2 (30-55) mm/Hg HCO3 (21-28) mmol/L ABG pH (7.35-7.45) ABG Total CO2 (22-28) mmol.L ABG O2 Saturation (95-98) % ABG O2 Content (15-23) ML/dl ABG Base Excess (-2.0-3.0) mmol/L ABG Hemoglobin (11.7-17.4) g/dL ABG Carboxyhemoglobin (0.5-1.5) % POC ABG HHb (Measured) (0-5) % ABG Methemoglobin (0.0-3.0) % ABG O2 Capacity (16-24) mL/dl VBG pH (7.32-7.43) VBG pCO2 (40-60) VBG HCO3 (21-28) mmol/l VBG Total CO2 (22-28) mmol.L VBG O2 Sat (Calc) (40-65) % VBG Base Excess (0.0-2.0) mmol/L VBG Potassium (3.6-5.2) mmol/L Hgb O2 Saturation (95.0-98.0) % Sodium 143 (132-148) mmol/L Chloride 108 H (98-107) mmol/L Glucose (75-110) mg/dl Lactate (0.7-2.1) mmol/L FiO2 % Potassium 5.4 H (3.6-5.0) mmol/L Carbon Dioxide 33 (21-33) mmol/L Anion Gap 8 L (10-20) BUN 41 H (7-21) mg/dL Creatinine 1.1 (0.8-1.5) mg/dl Est GFR ( Amer) > 60 Est GFR (Non-Af Amer) > 60 POC Glucose (mg/dL) (65-110) mg/dL Random Glucose 161 H (70-110) mg/dL Calcium 8.5 (8.4-10.5) mg/dL Phosphorus 5.2 H (2.5-4.5) mg/dL Magnesium 2.1 (1.7-2.2) mg/dL Total Bilirubin 0.8 (0.2-1.3) mg/dL AST 40 (17-59) U/L ALT 16 (7-56) U/L Alkaline Phosphatase 66 (38-126) U/L Total Protein 6.0 (5.8-8.3) g/dL Albumin 3.3 (3.0-4.8) g/dL Globulin 2.7 gm/dL Albumin/Globulin Ratio 1.2 (1.1-1.8) Procalcitonin (0.19-0.49) NG/ML Venous Blood Potassium (3.6-5.2) mmol/L Blood Type Blood Type Confirm Antibody Screen Crossmatch BBK History Checked 07/11/18 07/11/18 07/11/18 Range/Units 23:38 23:15 18:30 WBC 19.6 H D 16.3 H (4.5-11.0) 10^3/ul RBC 4.31 4.49 (3.5-6.1) 10^6/uL Hgb 13.2 L 14.0 (14.0-18.0) g/dL Hct 43.3 44.5 (42.0-52.0) % MCV 100.5 99.1 (80.0-105.0) fl MCH 30.6 31.2 (25.0-35.0) pg MCHC 30.5 L 31.5 (31.0-37.0) g/dl RDW 16.2 H 16.2 H (11.5-14.5) % Plt Count 188 225 (120.0-450.0) 10^3/uL MPV 11.4 H 11.5 H (7.0-11.0) fl Gran % 90.4 H (50.0-68.0) % Lymph % (Auto) 9.3 L (22.0-35.0) % [place] % (Auto) 0.2 L 3.1 (1.0-6.0) % Eos % (Auto) 0.0 L 0.0 L (1.5-5.0) % Baso % (Auto) 0.1 0.1 (0.0-3.0) % Gran # 17.77 H (1.4-6.5) Lymph # (Auto) 1.8 (1.2-3.4) [place] # (Auto) 0.0 L 0.5 (0.1-0.6) Eos # (Auto) 0.0 0.0 (0.0-0.7) Baso # (Auto) 0.01 0.01 (0.0-2.0) K/mm3 PT (9.4-12.5) SECONDS INR APTT (25.1-36.5) Seconds pCO2 (35-45) mm/Hg pO2 (30-55) mm/Hg HCO3 (21-28) mmol/L ABG pH (7.35-7.45) ABG Total CO2 (22-28) mmol.L ABG O2 Saturation (95-98) % ABG O2 Content (15-23) ML/dl ABG Base Excess (-2.0-3.0) mmol/L ABG Hemoglobin (11.7-17.4) g/dL ABG Carboxyhemoglobin (0.5-1.5) % POC ABG HHb (Measured) (0-5) % ABG Methemoglobin (0.0-3.0) % ABG O2 Capacity (16-24) mL/dl VBG pH (7.32-7.43) VBG pCO2 (40-60) VBG HCO3 (21-28) mmol/l VBG Total CO2 (22-28) mmol.L VBG O2 Sat (Calc) (40-65) % VBG Base Excess (0.0-2.0) mmol/L VBG Potassium (3.6-5.2) mmol/L Hgb O2 Saturation (95.0-98.0) % Sodium (132-148) mmol/L Chloride (98-107) mmol/L Glucose (75-110) mg/dl Lactate (0.7-2.1) mmol/L FiO2 % Potassium (3.6-5.0) mmol/L Carbon Dioxide (21-33) mmol/L Anion Gap (10-20) BUN (7-21) mg/dL Creatinine (0.8-1.5) mg/dl Est GFR ( Amer) Est GFR (Non-Af Amer) POC Glucose (mg/dL) 167 H (65-110) mg/dL Random Glucose (70-110) mg/dL Calcium (8.4-10.5) mg/dL Phosphorus (2.5-4.5) mg/dL Magnesium (1.7-2.2) mg/dL Total Bilirubin (0.2-1.3) mg/dL AST (17-59) U/L ALT (7-56) U/L Alkaline Phosphatase (38-126) U/L Total Protein (5.8-8.3) g/dL Albumin (3.0-4.8) g/dL Globulin gm/dL Albumin/Globulin Ratio (1.1-1.8) Procalcitonin (0.19-0.49) NG/ML Venous Blood Potassium (3.6-5.2) mmol/L Blood Type Blood Type Confirm Antibody Screen Crossmatch BBK History Checked 07/11/18 07/11/18 07/11/18 Range/Units 18:24 17:58 17:58 WBC 18.5 H D (4.5-11.0) 10^3/ul RBC 4.77 (3.5-6.1) 10^6/uL Hgb 14.9 D (14.0-18.0) g/dL Hct 47.6 (42.0-52.0) % MCV 99.8 (80.0-105.0) fl MCH 31.2 (25.0-35.0) pg MCHC 31.3 (31.0-37.0) g/dl RDW 16.2 H (11.5-14.5) % Plt Count 223 (120.0-450.0) 10^3/uL MPV 11.5 H (7.0-11.0) fl Gran % 90.2 H (50.0-68.0) % Lymph % (Auto) 4.0 L (22.0-35.0) % [place] % (Auto) 5.6 (1.0-6.0) % Eos % (Auto) 0.1 L (1.5-5.0) % Baso % (Auto) 0.1 (0.0-3.0) % Gran # 16.71 H (1.4-6.5) Lymph # (Auto) 0.7 L (1.2-3.4) [place] # (Auto) 1.0 H (0.1-0.6) Eos # (Auto) 0.0 (0.0-0.7) Baso # (Auto) 0.01 (0.0-2.0) K/mm3 PT 13.1 H (9.4-12.5) SECONDS INR 1.15 APTT 33.2 (25.1-36.5) Seconds pCO2 (35-45) mm/Hg pO2 (30-55) mm/Hg HCO3 (21-28) mmol/L ABG pH (7.35-7.45) ABG Total CO2 (22-28) mmol.L ABG O2 Saturation (95-98) % ABG O2 Content (15-23) ML/dl ABG Base Excess (-2.0-3.0) mmol/L ABG Hemoglobin (11.7-17.4) g/dL ABG Carboxyhemoglobin (0.5-1.5) % POC ABG HHb (Measured) (0-5) % ABG Methemoglobin (0.0-3.0) % ABG O2 Capacity (16-24) mL/dl VBG pH (7.32-7.43) VBG pCO2 (40-60) VBG HCO3 (21-28) mmol/l VBG Total CO2 (22-28) mmol.L VBG O2 Sat (Calc) (40-65) % VBG Base Excess (0.0-2.0) mmol/L VBG Potassium (3.6-5.2) mmol/L Hgb O2 Saturation (95.0-98.0) % Sodium (132-148) mmol/L Chloride (98-107) mmol/L Glucose (75-110) mg/dl Lactate (0.7-2.1) mmol/L FiO2 % Potassium (3.6-5.0) mmol/L Carbon Dioxide (21-33) mmol/L Anion Gap (10-20) BUN (7-21) mg/dL Creatinine (0.8-1.5) mg/dl Est GFR ( Amer) Est GFR (Non-Af Amer) POC Glucose (mg/dL) (65-110) mg/dL Random Glucose (70-110) mg/dL Calcium (8.4-10.5) mg/dL Phosphorus (2.5-4.5) mg/dL Magnesium (1.7-2.2) mg/dL Total Bilirubin (0.2-1.3) mg/dL AST (17-59) U/L ALT (7-56) U/L Alkaline Phosphatase (38-126) U/L Total Protein (5.8-8.3) g/dL Albumin (3.0-4.8) g/dL Globulin gm/dL Albumin/Globulin Ratio (1.1-1.8) Procalcitonin (0.19-0.49) NG/ML Venous Blood Potassium (3.6-5.2) mmol/L Blood Type Blood Type Confirm O POSITIVE Antibody Screen Crossmatch BBK History Checked 07/11/18 07/11/18 07/11/18 Range/Units 17:58 17:55 17:55 WBC (4.5-11.0) 10^3/ul RBC (3.5-6.1) 10^6/uL Hgb (14.0-18.0) g/dL Hct (42.0-52.0) % MCV (80.0-105.0) fl MCH (25.0-35.0) pg MCHC (31.0-37.0) g/dl RDW (11.5-14.5) % Plt Count (120.0-450.0) 10^3/uL MPV (7.0-11.0) fl Gran % (50.0-68.0) % Lymph % (Auto) (22.0-35.0) % [place] % (Auto) (1.0-6.0) % Eos % (Auto) (1.5-5.0) % Baso % (Auto) (0.0-3.0) % Gran # (1.4-6.5) Lymph # (Auto) (1.2-3.4) [place] # (Auto) (0.1-0.6) Eos # (Auto) (0.0-0.7) Baso # (Auto) (0.0-2.0) K/mm3 PT (9.4-12.5) SECONDS INR APTT (25.1-36.5) Seconds pCO2 (35-45) mm/Hg pO2 72 H (30-55) mm/Hg HCO3 (21-28) mmol/L ABG pH (7.35-7.45) ABG Total CO2 (22-28) mmol.L ABG O2 Saturation (95-98) % ABG O2 Content (15-23) ML/dl ABG Base Excess (-2.0-3.0) mmol/L ABG Hemoglobin (11.7-17.4) g/dL ABG Carboxyhemoglobin (0.5-1.5) % POC ABG HHb (Measured) (0-5) % ABG Methemoglobin (0.0-3.0) % ABG O2 Capacity (16-24) mL/dl VBG pH 7.09 L* (7.32-7.43) VBG pCO2 109.0 H* (40-60) VBG HCO3 33.1 H (21-28) mmol/l VBG Total CO2 36.4 H (22-28) mmol.L VBG O2 Sat (Calc) 93.1 H (40-65) % VBG Base Excess -0.1 L (0.0-2.0) mmol/L VBG Potassium 5.3 H (3.6-5.2) mmol/L Hgb O2 Saturation (95.0-98.0) % Sodium 142.0 143 (132-148) mmol/L Chloride 107.0 107 (98-107) mmol/L Glucose 187 H (75-110) mg/dl Lactate 1.4 (0.7-2.1) mmol/L FiO2 21.0 % Potassium 5.5 H (3.6-5.0) mmol/L Carbon Dioxide 32 (21-33) mmol/L Anion Gap 10 (10-20) BUN 38 H (7-21) mg/dL Creatinine 1.0 (0.8-1.5) mg/dl Est GFR ( Amer) > 60 Est GFR (Non-Af Amer) > 60 POC Glucose (mg/dL) (65-110) mg/dL Random Glucose 180 H (70-110) mg/dL Calcium 8.8 (8.4-10.5) mg/dL Phosphorus 4.2 (2.5-4.5) mg/dL Magnesium 2.2 (1.7-2.2) mg/dL Total Bilirubin 1.0 (0.2-1.3) mg/dL AST 38 (17-59) U/L ALT 15 (7-56) U/L Alkaline Phosphatase 76 (38-126) U/L Total Protein 7.0 (5.8-8.3) g/dL Albumin 3.8 (3.0-4.8) g/dL Globulin 3.1 gm/dL Albumin/Globulin Ratio 1.2 (1.1-1.8) Procalcitonin (0.19-0.49) NG/ML Venous Blood Potassium 5.3 H (3.6-5.2) mmol/L Blood Type O POSITIVE Blood Type Confirm Antibody Screen Negative Crossmatch See Detail BBK History Checked No verified bt 07/10/18 Range/Units 11:00 WBC (4.5-11.0) 10^3/ul RBC (3.5-6.1) 10^6/uL Hgb (14.0-18.0) g/dL Hct (42.0-52.0) % MCV (80.0-105.0) fl MCH (25.0-35.0) pg MCHC (31.0-37.0) g/dl RDW (11.5-14.5) % Plt Count (120.0-450.0) 10^3/uL MPV (7.0-11.0) fl Gran % (50.0-68.0) % Lymph % (Auto) (22.0-35.0) % [place] % (Auto) (1.0-6.0) % Eos % (Auto) (1.5-5.0) % Baso % (Auto) (0.0-3.0) % Gran # (1.4-6.5) Lymph # (Auto) (1.2-3.4) [place] # (Auto) (0.1-0.6) Eos # (Auto) (0.0-0.7) Baso # (Auto) (0.0-2.0) K/mm3 PT (9.4-12.5) SECONDS INR APTT (25.1-36.5) Seconds pCO2 (35-45) mm/Hg pO2 (30-55) mm/Hg HCO3 (21-28) mmol/L ABG pH (7.35-7.45) ABG Total CO2 (22-28) mmol.L ABG O2 Saturation (95-98) % ABG O2 Content (15-23) ML/dl ABG Base Excess (-2.0-3.0) mmol/L ABG Hemoglobin (11.7-17.4) g/dL ABG Carboxyhemoglobin (0.5-1.5) % POC ABG HHb (Measured) (0-5) % ABG Methemoglobin (0.0-3.0) % ABG O2 Capacity (16-24) mL/dl VBG pH (7.32-7.43) VBG pCO2 (40-60) VBG HCO3 (21-28) mmol/l VBG Total CO2 (22-28) mmol.L VBG O2 Sat (Calc) (40-65) % VBG Base Excess (0.0-2.0) mmol/L VBG Potassium (3.6-5.2) mmol/L Hgb O2 Saturation (95.0-98.0) % Sodium (132-148) mmol/L Chloride (98-107) mmol/L Glucose (75-110) mg/dl Lactate (0.7-2.1) mmol/L FiO2 % Potassium (3.6-5.0) mmol/L Carbon Dioxide (21-33) mmol/L Anion Gap (10-20) BUN (7-21) mg/dL Creatinine (0.8-1.5) mg/dl Est GFR ( Amer) Est GFR (Non-Af Amer) POC Glucose (mg/dL) (65-110) mg/dL Random Glucose (70-110) mg/dL Calcium (8.4-10.5) mg/dL Phosphorus (2.5-4.5) mg/dL Magnesium (1.7-2.2) mg/dL Total Bilirubin (0.2-1.3) mg/dL AST (17-59) U/L ALT (7-56) U/L Alkaline Phosphatase (38-126) U/L Total Protein (5.8-8.3) g/dL Albumin (3.0-4.8) g/dL Globulin gm/dL Albumin/Globulin Ratio (1.1-1.8) Procalcitonin 1.41 H (0.19-0.49) NG/ML Venous Blood Potassium (3.6-5.2) mmol/L Blood Type Blood Type Confirm Antibody Screen Crossmatch BBK History Checked Laboratory Results - last 24 hr 07/10/18 07/11/18 07/11/18 11:00 17:55 17:55 WBC RBC Hgb Hct MCV MCH MCHC RDW Plt Count MPV Gran % Lymph % (Auto) [place] % (Auto) Eos % (Auto) Baso % (Auto) Gran # Lymph # (Auto) [place] # (Auto) Eos # (Auto) Baso # (Auto) PT INR APTT pCO2 pO2 72 H HCO3 ABG pH ABG Total CO2 ABG O2 Saturation ABG O2 Content ABG Base Excess ABG Hemoglobin ABG Carboxyhemoglobin POC ABG HHb (Measured) ABG Methemoglobin ABG O2 Capacity VBG pH 7.09 L* VBG pCO2 109.0 H* VBG HCO3 33.1 H VBG Total CO2 36.4 H VBG O2 Sat (Calc) 93.1 H VBG Base Excess -0.1 L VBG Potassium 5.3 H Hgb O2 Saturation Sodium 143 142.0 Chloride 107 107.0 Glucose 187 H Lactate 1.4 FiO2 21.0 Potassium 5.5 H Carbon Dioxide 32 Anion Gap 10 BUN 38 H Creatinine 1.0 Est GFR ( Amer) > 60 Est GFR (Non-Af Amer) > 60 POC Glucose (mg/dL) Random Glucose 180 H Calcium 8.8 Phosphorus 4.2 Magnesium 2.2 Total Bilirubin 1.0 AST 38 ALT 15 Alkaline Phosphatase 76 Total Protein 7.0 Albumin 3.8 Globulin 3.1 Albumin/Globulin Ratio 1.2 Procalcitonin 1.41 H Venous Blood Potassium 5.3 H Blood Type Blood Type Confirm Antibody Screen Crossmatch BBK History Checked 07/11/18 07/11/18 07/11/18 17:58 17:58 17:58 WBC 18.5 H D RBC 4.77 Hgb 14.9 D Hct 47.6 MCV 99.8 MCH 31.2 MCHC 31.3 RDW 16.2 H Plt Count 223 MPV 11.5 H Gran % 90.2 H Lymph % (Auto) 4.0 L [place] % (Auto) 5.6 Eos % (Auto) 0.1 L Baso % (Auto) 0.1 Gran # 16.71 H Lymph # (Auto) 0.7 L [place] # (Auto) 1.0 H Eos # (Auto) 0.0 Baso # (Auto) 0.01 PT 13.1 H INR 1.15 APTT 33.2 pCO2 pO2 HCO3 ABG pH ABG Total CO2 ABG O2 Saturation ABG O2 Content ABG Base Excess ABG Hemoglobin ABG Carboxyhemoglobin POC ABG HHb (Measured) ABG Methemoglobin ABG O2 Capacity VBG pH VBG pCO2 VBG HCO3 VBG Total CO2 VBG O2 Sat (Calc) VBG Base Excess VBG Potassium Hgb O2 Saturation Sodium Chloride Glucose Lactate FiO2 Potassium Carbon Dioxide Anion Gap BUN Creatinine Est GFR ( Amer) Est GFR (Non-Af Amer) POC Glucose (mg/dL) Random Glucose Calcium Phosphorus Magnesium Total Bilirubin AST ALT Alkaline Phosphatase Total Protein Albumin Globulin Albumin/Globulin Ratio Procalcitonin Venous Blood Potassium Blood Type O POSITIVE Blood Type Confirm Antibody Screen Negative Crossmatch See Detail BBK History Checked No verified bt 07/11/18 07/11/18 07/11/18 18:24 18:30 23:15 WBC 16.3 H 19.6 H D RBC 4.49 4.31 Hgb 14.0 13.2 L Hct 44.5 43.3 MCV 99.1 100.5 MCH 31.2 30.6 MCHC 31.5 30.5 L RDW 16.2 H 16.2 H Plt Count 225 188 MPV 11.5 H 11.4 H Gran % 90.4 H Lymph % (Auto) 9.3 L [place] % (Auto) 3.1 0.2 L Eos % (Auto) 0.0 L 0.0 L Baso % (Auto) 0.1 0.1 Gran # 17.77 H Lymph # (Auto) 1.8 [place] # (Auto) 0.5 0.0 L Eos # (Auto) 0.0 0.0 Baso # (Auto) 0.01 0.01 PT INR APTT pCO2 pO2 HCO3 ABG pH ABG Total CO2 ABG O2 Saturation ABG O2 Content ABG Base Excess ABG Hemoglobin ABG Carboxyhemoglobin POC ABG HHb (Measured) ABG Methemoglobin ABG O2 Capacity VBG pH VBG pCO2 VBG HCO3 VBG Total CO2 VBG O2 Sat (Calc) VBG Base Excess VBG Potassium Hgb O2 Saturation Sodium Chloride Glucose Lactate FiO2 Potassium Carbon Dioxide Anion Gap BUN Creatinine Est GFR ( Amer) Est GFR (Non-Af Amer) POC Glucose (mg/dL) Random Glucose Calcium Phosphorus Magnesium Total Bilirubin AST ALT Alkaline Phosphatase Total Protein Albumin Globulin Albumin/Globulin Ratio Procalcitonin Venous Blood Potassium Blood Type Blood Type Confirm O POSITIVE Antibody Screen Crossmatch BBK History Checked 07/11/18 07/12/18 07/12/18 23:38 02:03 05:30 WBC 21.0 H RBC 4.26 Hgb 13.2 L Hct 42.7 MCV 100.2 MCH 31.0 MCHC 30.9 L RDW 16.3 H Plt Count 189 MPV 11.7 H Gran % 91.4 H Lymph % (Auto) 6.1 L [place] % (Auto) 2.5 Eos % (Auto) 0.0 L Baso % (Auto) 0.0 Gran # 19.15 H Lymph # (Auto) 1.3 [place] # (Auto) 0.5 Eos # (Auto) 0.0 Baso # (Auto) 0.00 PT INR APTT pCO2 pO2 HCO3 ABG pH ABG Total CO2 ABG O2 Saturation ABG O2 Content ABG Base Excess ABG Hemoglobin ABG Carboxyhemoglobin POC ABG HHb (Measured) ABG Methemoglobin ABG O2 Capacity VBG pH VBG pCO2 VBG HCO3 VBG Total CO2 VBG O2 Sat (Calc) VBG Base Excess VBG Potassium Hgb O2 Saturation Sodium 143 Chloride 108 H Glucose Lactate FiO2 Potassium 5.4 H Carbon Dioxide 33 Anion Gap 8 L BUN 41 H Creatinine 1.1 Est GFR ( Amer) > 60 Est GFR (Non-Af Amer) > 60 POC Glucose (mg/dL) 167 H Random Glucose 161 H Calcium 8.5 Phosphorus 5.2 H Magnesium 2.1 Total Bilirubin 0.8 AST 40 ALT 16 Alkaline Phosphatase 66 Total Protein 6.0 Albumin 3.3 Globulin 2.7 Albumin/Globulin Ratio 1.2 Procalcitonin Venous Blood Potassium Blood Type Blood Type Confirm Antibody Screen Crossmatch BBK History Checked 07/12/18 07/12/18 07/12/18 05:30 05:42 09:30 WBC 22.5 H 21.4 H RBC 4.41 4.19 Hgb 13.5 L 13.1 L Hct 44.7 42.4 MCV 101.4 101.2 MCH 30.6 31.3 MCHC 30.2 L 30.9 L RDW 16.3 H 16.3 H Plt Count 184 162 MPV 11.3 H 11.3 H Gran % 92.7 H 92.4 H Lymph % (Auto) 5.0 L 4.7 L [place] % (Auto) 2.3 2.9 Eos % (Auto) 0.0 L 0.0 L Baso % (Auto) 0.0 0.0 Gran # 20.81 H 19.76 H Lymph # (Auto) 1.1 L 1.0 L [place] # (Auto) 0.5 0.6 Eos # (Auto) 0.0 0.0 Baso # (Auto) 0.01 0.00 PT INR APTT pCO2 pO2 HCO3 ABG pH ABG Total CO2 ABG O2 Saturation ABG O2 Content ABG Base Excess ABG Hemoglobin ABG Carboxyhemoglobin POC ABG HHb (Measured) ABG Methemoglobin ABG O2 Capacity VBG pH VBG pCO2 VBG HCO3 VBG Total CO2 VBG O2 Sat (Calc) VBG Base Excess VBG Potassium Hgb O2 Saturation Sodium Chloride Glucose Lactate FiO2 Potassium Carbon Dioxide Anion Gap BUN Creatinine Est GFR ( Amer) Est GFR (Non-Af Amer) POC Glucose (mg/dL) 168 H Random Glucose Calcium Phosphorus Magnesium Total Bilirubin AST ALT Alkaline Phosphatase Total Protein Albumin Globulin Albumin/Globulin Ratio Procalcitonin Venous Blood Potassium Blood Type Blood Type Confirm Antibody Screen Crossmatch BBK History Checked 07/12/18 12:40 WBC RBC Hgb Hct MCV MCH MCHC RDW Plt Count MPV Gran % Lymph % (Auto) [place] % (Auto) Eos % (Auto) Baso % (Auto) Gran # Lymph # (Auto) [place] # (Auto) Eos # (Auto) Baso # (Auto) PT INR APTT pCO2 113 H* pO2 89.0 HCO3 30.6 H ABG pH 7.04 L* ABG Total CO2 34.1 H ABG O2 Saturation 98.5 H ABG O2 Content 16.7 ABG Base Excess -2.8 L ABG Hemoglobin 12.4 ABG Carboxyhemoglobin 1.9 H POC ABG HHb (Measured) 1.5 ABG Methemoglobin 1.1 ABG O2 Capacity 17.0 VBG pH VBG pCO2 VBG HCO3 VBG Total CO2 VBG O2 Sat (Calc) VBG Base Excess VBG Potassium Hgb O2 Saturation 95.5 Sodium Chloride Glucose Lactate FiO2 100.0 Potassium Carbon Dioxide Anion Gap BUN Creatinine Est GFR ( Amer) Est GFR (Non-Af Amer) POC Glucose (mg/dL) Random Glucose Calcium Phosphorus Magnesium Total Bilirubin AST ALT Alkaline Phosphatase Total Protein Albumin Globulin Albumin/Globulin Ratio Procalcitonin Venous Blood Potassium Blood Type Blood Type Confirm Antibody Screen Crossmatch BBK History Checked EKG/Cardiology Studies: Cardiology / EKG Studies 07/11/18 20:41 EKG [ELECTROCARDIOGRAM] Stat Comment: Reason For Exam: episodes of VTach Fingerstick Blood Sugar Results: 134 Review of Systems - Review of Systems Systems not reviewed;Unavailable: Acuity of Condition Critical Care Progress Note - Ventilator Checklist Head of Bed 30 Degrees: Yes PUD Prophalyxis: Yes DVT Prophylaxis: Yes - Extremities/Vascular Does the Patient have a Central Venous Catheter?: No Does the Patient need a Central Venous Catheter?: No - Nutrition Nutrition: Nutrition Category Date Time Status NPO Diet [DIET] Diets 07/12/18 Lunch Ordered Assessment/Plan - Assessment and Plan (Free Text) Assessment: 88 year old male with past medical history of CHF, pulmonary HTN, COPD, NSTEMI, prostate cancer, atrial fibrillation, aortic stenosis, Parkinson's, Alzheimer's presents with altered mental status and coughing progressing to gurgling and unresponsive nature. Yesterday, patient was having active hematemesis and had about 500 cc of blood suctioned. Patient was in respiratory distress needed BiPap and was transferred to ICU. Plan: Neuro: -AAOx1, no FND -Head CT on 07/06 showed no acute findings. -Patient lethargic and unable to respond to questions. -Yesterday, per medical team patient was AAOx3. Patient is AAOx3 at baseline. -Patient has history of Parkinson's and Alzheimer's. Patient is taking entacapone/levodopa/carbidopa, pramipexole for Parkinson's. Cardio: -Tachycardic, hypertensive at 147/105 with MAP: 117 -Patient had 6 beats of ventricular tachycardia last night and was started on amiodarone drip as per night team. Dr. Justice was consulted and accepted the order overnight. -Echo: EF: 65%, severe aortic stenosis -Maintain MAP>65. -Monitor for S/S, HD compromise. Pulm: -Patient in respiratory distress. BiPap settings changed to 26/6, RR: 18, FiO2: 100% -Patient is DNR/DNI -ABG: pH: 7.04, pCO2: 113, pO2: 89 -Maintain O2 saturation>95%. -CXR: stable bilateral bibasilar infiltrates and small bilateral pleural effusions. Mild pulmonary vascular congestion -Elevate bed to 30 degrees GI: -NPO -Patient had hematemesis yesterday. Patient had NG tube placed loosing about 500 cc to 1L of blood through suction. As per GI, no plans for endoscopy or colonoscopy due to patient's aortic stenosis leading to poor prognosis with procedure and patient's DNR/DNI status. Patient was initially bradycardic during the event in the 40s and subsequently became tachycardic after he was tra nsferred to the ICU. Blood pressure remained stable. -Protonix 40 mg Q12 /Nephro: -BUN/Cr stable at 41/1.1 likely due to CHF vs. dehydration. -UA: 100 protein, 15 ketones, trace lysed blood, small bilirubin, trace leukocyte esterase, 1-3 RBC, 1-3 WBC, 0-2 epithelial cells, trace bacteria -Continue monitoring. -Maintain euvolemia. Endocrinology: -Random glucose: 161 -Maintain euglycemia. Heme/Onc: -H/H stable at 13.5 from 13.2. Patient's hemoglobin clayton from 12.6 to 14.9 after the GI bleed yesterday paradoxically. -Continue monitoring H/H ID: -Afebrile, leukocytosis at 22.5 -Blood culture shows no growth in 5 days. Urine culture is negative. MRSA nare culture is negative. Tracheal culture: showed yeast species -Patient on merrem and levaquin day 6. DVT prophylaxis: SCD GI prophylaxis: protonix 40 mg Q12 Disposition: Patient's ABG shows worsening prognosis. Patient is DNR/DNI. As a result, patient is on BiPap but has increasing CO2 retention. Patient's progn osis is poor. Patient seen and examined with Dr. Hidalgo. - Date & Time Date: 07/12/18 Time: 14:25 <Compa Hidalgo - Last Filed: 07/12/18 17:43> CCU Objective - Vital Signs / Intake & Output Vital Signs (Last 4 hours): Vital Signs Pulse Resp BP Pulse Ox 07/12/18 16:10 89 22 07/12/18 16:00 137/80 07/12/18 15:59 90 24 07/12/18 15:50 87 17 94 L 07/12/18 15:40 83 22 97 07/12/18 15:30 86 96 07/12/18 15:20 78 22 96 07/12/18 15:10 93 H 19 95 07/12/18 15:01 88 19 120/74 94 L 07/12/18 15:00 90 22 97 07/12/18 14:50 76 22 07/12/18 14:40 81 22 88 L 07/12/18 14:30 74 23 95 07/12/18 14:20 83 22 95 07/12/18 14:10 79 21 98 07/12/18 14:03 76 07/12/18 14:00 80 21 104/48 L 96 07/12/18 13:50 87 35 H 95 Intake and Output (Last 8hrs): Intake & Output 07/12/18 07/12/18 07/12/18 06:59 14:59 22:59 Intake Total 690 Output Total 675 Balance 15 Weight 91.943 kg Intake: IV 690 ANTIBIOTIC 100 Right Forearm 350 Right Hand 240 Output: Urine 675 Urethral (Davis) 675 - Medications Active Medications: Active Medications Generic Name Dose Route Start Last Admin Trade Name Freq PRN Reason Stop Dose Admin Albuterol/Ipratropium 3 ml 07/06/18 20:00 07/12/18 14:02 Duoneb 3 Mg/0.5 Mg (3 Ml) Ud IH 3 ml [id number] SILVIA Administration Carbidopa/Levodopa/Entacapone 1 tab 07/08/18 18:00 07/12/18 17:31 Stalevo 150 PO Not Given TID SILVIA Guaifenesin 600 mg 07/11/18 18:00 07/12/18 17:31 Mucinex La PO Not Given BID SILVIA Meropenem 1 gm in 50 mls @ 100 mls/hr 07/07/18 14:00 07/12/18 13:30 Merrem Iv 1 Gm Premix IVPB 100 mls/hr Q8 SILVIA Administration Protocol Amiodarone HCl/Dextrose 360 mg in 200 mls @ 16.667 mls/hr 07/12/18 03:15 07/12/18 17:32 Nexterone 360 Mg In D5w 200 Ml (Premix) IV 16.667 mls/hr .Q12H SILVIA Administration Protocol 0.5 MG/MIN Levofloxacin/Dextrose 750 mg in 150 mls @ 100 mls/hr 07/12/18 10:00 07/12/18 10:08 Levaquin 750mg IVPB 100 mls/hr DAILY SILVIA Administration Protocol Vancomycin HCl 1 gm in 250 mls @ 167 mls/hr 07/12/18 06:30 07/12/18 17:36 Vancomycin 1gm IVPB 167 mls/hr Q12H SILVIA Administration Protocol Sodium Bicarbonate 150 meq/ 1,150 mls @ 100 mls/hr 07/12/18 13:45 07/12/18 15:05 Dextrose IV 100 mls/hr .[id number] SILVIA Administration Mirtazapine 15 mg 07/08/18 22:00 07/11/18 22:14 Remeron PO Not Given HS SILVIA Pantoprazole Sodium 40 mg 07/12/18 22:00 Protonix Inj IVP Q12 SILVIA Pramipexole Dihydrochloride 1 mg 07/08/18 18:00 07/12/18 17:31 Mirapex PO Not Given TID SILVIA - Patient Studies Lab Studies: Microbiology Studies 07/06/18 15:00 Blood Culture - Final Blood NO GROWTH AFTER 5 DAYS Gram Stain - Final TEST NOT PERFORMED 07/06/18 14:30 Blood Culture - Final Blood NO GROWTH AFTER 5 DAYS Gram Stain - Final TEST NOT PERFORMED Lab Studies 1007/12/18 07/12/18 Range/Units 16:00 14:00 12:40 WBC 21.9 H (4.5-11.0) 10^3/ul RBC 4.36 (3.5-6.1) 10^6/uL Hgb 13.6 L (14.0-18.0) g/dL Hct 44.5 (42.0-52.0) % MCV 102.1 (80.0-105.0) fl MCH 31.2 (25.0-35.0) pg MCHC 30.6 L (31.0-37.0) g/dl RDW 16.2 H (11.5-14.5) % Plt Count 158 (120.0-450.0) 10^3/uL MPV 11.7 H (7.0-11.0) fl Gran % 91.5 H (50.0-68.0) % Lymph % (Auto) 6.8 L (22.0-35.0) % [place] % (Auto) 1.7 (1.0-6.0) % Eos % (Auto) 0.0 L (1.5-5.0) % Baso % (Auto) 0.0 (0.0-3.0) % Gran # 20.01 H (1.4-6.5) Lymph # (Auto) 1.5 (1.2-3.4) [place] # (Auto) 0.4 (0.1-0.6) Eos # (Auto) 0.0 (0.0-0.7) Baso # (Auto) 0.01 (0.0-2.0) K/mm3 PT (9.4-12.5) SECONDS INR APTT (25.1-36.5) Seconds pCO2 94 H* 113 H* (35-45) mm/Hg pO2 120.0 H 89.0 (30-55) mm/Hg HCO3 30.6 H 30.6 H (21-28) mmol/L ABG pH 7.12 L* 7.04 L* (7.35-7.45) ABG Total CO2 33.5 H 34.1 H (22-28) mmol.L ABG O2 Saturation 99.7 H 98.5 H (95-98) % ABG O2 Content 17.1 16.7 (15-23) ML/dl ABG Base Excess -1.1 -2.8 L (-2.0-3.0) mmol/L ABG Hemoglobin 12.4 12.4 (11.7-17.4) g/dL ABG Carboxyhemoglobin 1.8 H 1.9 H (0.5-1.5) % POC ABG HHb (Measured) 0.3 1.5 (0-5) % ABG Methemoglobin 0.9 1.1 (0.0-3.0) % ABG O2 Capacity 17.2 17.0 (16-24) mL/dl VBG pH (7.32-7.43) VBG pCO2 (40-60) VBG HCO3 (21-28) mmol/l VBG Total CO2 (22-28) mmol.L VBG O2 Sat (Calc) (40-65) % VBG Base Excess (0.0-2.0) mmol/L VBG Potassium (3.6-5.2) mmol/L Hgb O2 Saturation 97.1 95.5 (95.0-98.0) % Sodium (132-148) mmol/L Chloride (98-107) mmol/L Glucose (75-110) mg/dl Lactate (0.7-2.1) mmol/L FiO2 100.0 100.0 % Potassium (3.6-5.0) mmol/L Carbon Dioxide (21-33) mmol/L Anion Gap (10-20) BUN (7-21) mg/dL Creatinine (0.8-1.5) mg/dl Est GFR ( Amer) Est GFR (Non-Af Amer) POC Glucose (mg/dL) (65-110) mg/dL Random Glucose (70-110) mg/dL Calcium (8.4-10.5) mg/dL Phosphorus (2.5-4.5) mg/dL Magnesium (1.7-2.2) mg/dL Total Bilirubin (0.2-1.3) mg/dL AST (17-59) U/L ALT (7-56) U/L Alkaline Phosphatase (38-126) U/L Total Protein (5.8-8.3) g/dL Albumin (3.0-4.8) g/dL Globulin gm/dL Albumin/Globulin Ratio (1.1-1.8) Procalcitonin (0.19-0.49) NG/ML Venous Blood Potassium (3.6-5.2) mmol/L Blood Type Blood Type Confirm Antibody Screen Crossmatch BBK History Checked 07/12/18 07/12/18 07/12/18 Range/Units 09:30 06:35 05:42 WBC 21.4 H (4.5-11.0) 10^3/ul RBC 4.19 (3.5-6.1) 10^6/uL Hgb 13.1 L (14.0-18.0) g/dL Hct 42.4 (42.0-52.0) % MCV 101.2 (80.0-105.0) fl MCH 31.3 (25.0-35.0) pg MCHC 30.9 L (31.0-37.0) g/dl RDW 16.3 H (11.5-14.5) % Plt Count 162 (120.0-450.0) 10^3/uL MPV 11.3 H (7.0-11.0) fl Gran % 92.4 H (50.0-68.0) % Lymph % (Auto) 4.7 L (22.0-35.0) % [place] % (Auto) 2.9 (1.0-6.0) % Eos % (Auto) 0.0 L (1.5-5.0) % Baso % (Auto) 0.0 (0.0-3.0) % Gran # 19.76 H (1.4-6.5) Lymph # (Auto) 1.0 L (1.2-3.4) [place] # (Auto) 0.6 (0.1-0.6) Eos # (Auto) 0.0 (0.0-0.7) Baso # (Auto) 0.00 (0.0-2.0) K/mm3 PT (9.4-12.5) SECONDS INR APTT (25.1-36.5) Seconds pCO2 (35-45) mm/Hg pO2 (30-55) mm/Hg HCO3 (21-28) mmol/L ABG pH (7.35-7.45) ABG Total CO2 (22-28) mmol.L ABG O2 Saturation (95-98) % ABG O2 Content (15-23) ML/dl ABG Base Excess (-2.0-3.0) mmol/L ABG Hemoglobin (11.7-17.4) g/dL ABG Carboxyhemoglobin (0.5-1.5) % POC ABG HHb (Measured) (0-5) % ABG Methemoglobin (0.0-3.0) % ABG O2 Capacity (16-24) mL/dl VBG pH (7.32-7.43) VBG pCO2 (40-60) VBG HCO3 (21-28) mmol/l VBG Total CO2 (22-28) mmol.L VBG O2 Sat (Calc) (40-65) % VBG Base Excess (0.0-2.0) mmol/L VBG Potassium (3.6-5.2) mmol/L Hgb O2 Saturation (95.0-98.0) % Sodium (132-148) mmol/L Chloride (98-107) mmol/L Glucose (75-110) mg/dl Lactate (0.7-2.1) mmol/L FiO2 % Potassium (3.6-5.0) mmol/L Carbon Dioxide (21-33) mmol/L Anion Gap (10-20) BUN (7-21) mg/dL Creatinine (0.8-1.5) mg/dl Est GFR ( Amer) Est GFR (Non-Af Amer) POC Glucose (mg/dL) 168 H (65-110) mg/dL Random Glucose (70-110) mg/dL Calcium (8.4-10.5) mg/dL Phosphorus (2.5-4.5) mg/dL Magnesium (1.7-2.2) mg/dL Total Bilirubin (0.2-1.3) mg/dL AST (17-59) U/L ALT (7-56) U/L Alkaline Phosphatase (38-126) U/L Total Protein (5.8-8.3) g/dL Albumin (3.0-4.8) g/dL Globulin gm/dL Albumin/Globulin Ratio (1.1-1.8) Procalcitonin 0.79 H (0.19-0.49) NG/ML Venous Blood Potassium (3.6-5.2) mmol/L Blood Type Blood Type Confirm Antibody Screen Crossmatch BBK History Checked 07/12/18 07/12/18 07/12/18 Range/Units 05:30 05:30 02:03 WBC 22.5 H 21.0 H (4.5-11.0) 10^3/ul RBC 4.41 4.26 (3.5-6.1) 10^6/uL Hgb 13.5 L 13.2 L (14.0-18.0) g/dL Hct 44.7 42.7 (42.0-52.0) % MCV 101.4 100.2 (80.0-105.0) fl MCH 30.6 31.0 (25.0-35.0) pg MCHC 30.2 L 30.9 L (31.0-37.0) g/dl RDW 16.3 H 16.3 H (11.5-14.5) % Plt Count 184 189 (120.0-450.0) 10^3/uL MPV 11.3 H 11.7 H (7.0-11.0) fl Gran % 92.7 H 91.4 H (50.0-68.0) % Lymph % (Auto) 5.0 L 6.1 L (22.0-35.0) % [place] % (Auto) 2.3 2.5 (1.0-6.0) % Eos % (Auto) 0.0 L 0.0 L (1.5-5.0) % Baso % (Auto) 0.0 0.0 (0.0-3.0) % Gran # 20.81 H 19.15 H (1.4-6.5) Lymph # (Auto) 1.1 L 1.3 (1.2-3.4) [place] # (Auto) 0.5 0.5 (0.1-0.6) Eos # (Auto) 0.0 0.0 (0.0-0.7) Baso # (Auto) 0.01 0.00 (0.0-2.0) K/mm3 PT (9.4-12.5) SECONDS INR APTT (25.1-36.5) Seconds pCO2 (35-45) mm/Hg pO2 (30-55) mm/Hg HCO3 (21-28) mmol/L ABG pH (7.35-7.45) ABG Total CO2 (22-28) mmol.L ABG O2 Saturation (95-98) % ABG O2 Content (15-23) ML/dl ABG Base Excess (-2.0-3.0) mmol/L ABG Hemoglobin (11.7-17.4) g/dL ABG Carboxyhemoglobin (0.5-1.5) % POC ABG HHb (Measured) (0-5) % ABG Methemoglobin (0.0-3.0) % ABG O2 Capacity (16-24) mL/dl VBG pH (7.32-7.43) VBG pCO2 (40-60) VBG HCO3 (21-28) mmol/l VBG Total CO2 (22-28) mmol.L VBG O2 Sat (Calc) (40-65) % VBG Base Excess (0.0-2.0) mmol/L VBG Potassium (3.6-5.2) mmol/L Hgb O2 Saturation (95.0-98.0) % Sodium 143 (132-148) mmol/L Chloride 108 H (98-107) mmol/L Glucose (75-110) mg/dl Lactate (0.7-2.1) mmol/L FiO2 % Potassium 5.4 H (3.6-5.0) mmol/L Carbon Dioxide 33 (21-33) mmol/L Anion Gap 8 L (10-20) BUN 41 H (7-21) mg/dL Creatinine 1.1 (0.8-1.5) mg/dl Est GFR ( Amer) > 60 Est GFR (Non-Af Amer) > 60 POC Glucose (mg/dL) (65-110) mg/dL Random Glucose 161 H (70-110) mg/dL Calcium 8.5 (8.4-10.5) mg/dL Phosphorus 5.2 H (2.5-4.5) mg/dL Magnesium 2.1 (1.7-2.2) mg/dL Total Bilirubin 0.8 (0.2-1.3) mg/dL AST 40 (17-59) U/L ALT 16 (7-56) U/L Alkaline Phosphatase 66 (38-126) U/L Total Protein 6.0 (5.8-8.3) g/dL Albumin 3.3 (3.0-4.8) g/dL Globulin 2.7 gm/dL Albumin/Globulin Ratio 1.2 (1.1-1.8) Procalcitonin (0.19-0.49) NG/ML Venous Blood Potassium (3.6-5.2) mmol/L Blood Type Blood Type Confirm Antibody Screen Crossmatch BBK History Checked 07/11/18 07/11/18 07/11/18 Range/Units 23:38 23:15 18:30 WBC 19.6 H D 16.3 H (4.5-11.0) 10^3/ul RBC 4.31 4.49 (3.5-6.1) 10^6/uL Hgb 13.2 L 14.0 (14.0-18.0) g/dL Hct 43.3 44.5 (42.0-52.0) % MCV 100.5 99.1 (80.0-105.0) fl MCH 30.6 31.2 (25.0-35.0) pg MCHC 30.5 L 31.5 (31.0-37.0) g/dl RDW 16.2 H 16.2 H (11.5-14.5) % Plt Count 188 225 (120.0-450.0) 10^3/uL MPV 11.4 H 11.5 H (7.0-11.0) fl Gran % 90.4 H (50.0-68.0) % Lymph % (Auto) 9.3 L (22.0-35.0) % [place] % (Auto) 0.2 L 3.1 (1.0-6.0) % Eos % (Auto) 0.0 L 0.0 L (1.5-5.0) % Baso % (Auto) 0.1 0.1 (0.0-3.0) % Gran # 17.77 H (1.4-6.5) Lymph # (Auto) 1.8 (1.2-3.4) [place] # (Auto) 0.0 L 0.5 (0.1-0.6) Eos # (Auto) 0.0 0.0 (0.0-0.7) Baso # (Auto) 0.01 0.01 (0.0-2.0) K/mm3 PT (9.4-12.5) SECONDS INR APTT (25.1-36.5) Seconds pCO2 (35-45) mm/Hg pO2 (30-55) mm/Hg HCO3 (21-28) mmol/L ABG pH (7.35-7.45) ABG Total CO2 (22-28) mmol.L ABG O2 Saturation (95-98) % ABG O2 Content (15-23) ML/dl ABG Base Excess (-2.0-3.0) mmol/L ABG Hemoglobin (11.7-17.4) g/dL ABG Carboxyhemoglobin (0.5-1.5) % POC ABG HHb (Measured) (0-5) % ABG Methemoglobin (0.0-3.0) % ABG O2 Capacity (16-24) mL/dl VBG pH (7.32-7.43) VBG pCO2 (40-60) VBG HCO3 (21-28) mmol/l VBG Total CO2 (22-28) mmol.L VBG O2 Sat (Calc) (40-65) % VBG Base Excess (0.0-2.0) mmol/L VBG Potassium (3.6-5.2) mmol/L Hgb O2 Saturation (95.0-98.0) % Sodium (132-148) mmol/L Chloride (98-107) mmol/L Glucose (75-110) mg/dl Lactate (0.7-2.1) mmol/L FiO2 % Potassium (3.6-5.0) mmol/L Carbon Dioxide (21-33) mmol/L Anion Gap (10-20) BUN (7-21) mg/dL Creatinine (0.8-1.5) mg/dl Est GFR ( Amer) Est GFR (Non-Af Amer) POC Glucose (mg/dL) 167 H (65-110) mg/dL Random Glucose (70-110) mg/dL Calcium (8.4-10.5) mg/dL Phosphorus (2.5-4.5) mg/dL Magnesium (1.7-2.2) mg/dL Total Bilirubin (0.2-1.3) mg/dL AST (17-59) U/L ALT (7-56) U/L Alkaline Phosphatase (38-126) U/L Total Protein (5.8-8.3) g/dL Albumin (3.0-4.8) g/dL Globulin gm/dL Albumin/Globulin Ratio (1.1-1.8) Procalcitonin (0.19-0.49) NG/ML Venous Blood Potassium (3.6-5.2) mmol/L Blood Type Blood Type Confirm Antibody Screen Crossmatch BBK History Checked 07/11/18 07/11/18 07/11/18 Range/Units 18:24 17:58 17:58 WBC 18.5 H D (4.5-11.0) 10^3/ul RBC 4.77 (3.5-6.1) 10^6/uL Hgb 14.9 D (14.0-18.0) g/dL Hct 47.6 (42.0-52.0) % MCV 99.8 (80.0-105.0) fl MCH 31.2 (25.0-35.0) pg MCHC 31.3 (31.0-37.0) g/dl RDW 16.2 H (11.5-14.5) % Plt Count 223 (120.0-450.0) 10^3/uL MPV 11.5 H (7.0-11.0) fl Gran % 90.2 H (50.0-68.0) % Lymph % (Auto) 4.0 L (22.0-35.0) % [place] % (Auto) 5.6 (1.0-6.0) % Eos % (Auto) 0.1 L (1.5-5.0) % Baso % (Auto) 0.1 (0.0-3.0) % Gran # 16.71 H (1.4-6.5) Lymph # (Auto) 0.7 L (1.2-3.4) [place] # (Auto) 1.0 H (0.1-0.6) Eos # (Auto) 0.0 (0.0-0.7) Baso # (Auto) 0.01 (0.0-2.0) K/mm3 PT 13.1 H (9.4-12.5) SECONDS INR 1.15 APTT 33.2 (25.1-36.5) Seconds pCO2 (35-45) mm/Hg pO2 (30-55) mm/Hg HCO3 (21-28) mmol/L ABG pH (7.35-7.45) ABG Total CO2 (22-28) mmol.L ABG O2 Saturation (95-98) % ABG O2 Content (15-23) ML/dl ABG Base Excess (-2.0-3.0) mmol/L ABG Hemoglobin (11.7-17.4) g/dL ABG Carboxyhemoglobin (0.5-1.5) % POC ABG HHb (Measured) (0-5) % ABG Methemoglobin (0.0-3.0) % ABG O2 Capacity (16-24) mL/dl VBG pH (7.32-7.43) VBG pCO2 (40-60) VBG HCO3 (21-28) mmol/l VBG Total CO2 (22-28) mmol.L VBG O2 Sat (Calc) (40-65) % VBG Base Excess (0.0-2.0) mmol/L VBG Potassium (3.6-5.2) mmol/L Hgb O2 Saturation (95.0-98.0) % Sodium (132-148) mmol/L Chloride (98-107) mmol/L Glucose (75-110) mg/dl Lactate (0.7-2.1) mmol/L FiO2 % Potassium (3.6-5.0) mmol/L Carbon Dioxide (21-33) mmol/L Anion Gap (10-20) BUN (7-21) mg/dL Creatinine (0.8-1.5) mg/dl Est GFR ( Amer) Est GFR (Non-Af Amer) POC Glucose (mg/dL) (65-110) mg/dL Random Glucose (70-110) mg/dL Calcium (8.4-10.5) mg/dL Phosphorus (2.5-4.5) mg/dL Magnesium (1.7-2.2) mg/dL Total Bilirubin (0.2-1.3) mg/dL AST (17-59) U/L ALT (7-56) U/L Alkaline Phosphatase (38-126) U/L Total Protein (5.8-8.3) g/dL Albumin (3.0-4.8) g/dL Globulin gm/dL Albumin/Globulin Ratio (1.1-1.8) Procalcitonin (0.19-0.49) NG/ML Venous Blood Potassium (3.6-5.2) mmol/L Blood Type Blood Type Confirm O POSITIVE Antibody Screen Crossmatch BBK History Checked 07/11/18 07/11/18 07/11/18 Range/Units 17:58 17:55 17:55 WBC (4.5-11.0) 10^3/ul RBC (3.5-6.1) 10^6/uL Hgb (14.0-18.0) g/dL Hct (42.0-52.0) % MCV (80.0-105.0) fl MCH (25.0-35.0) pg MCHC (31.0-37.0) g/dl RDW (11.5-14.5) % Plt Count (120.0-450.0) 10^3/uL MPV (7.0-11.0) fl Gran % (50.0-68.0) % Lymph % (Auto) (22.0-35.0) % [place] % (Auto) (1.0-6.0) % Eos % (Auto) (1.5-5.0) % Baso % (Auto) (0.0-3.0) % Gran # (1.4-6.5) Lymph # (Auto) (1.2-3.4) [place] # (Auto) (0.1-0.6) Eos # (Auto) (0.0-0.7) Baso # (Auto) (0.0-2.0) K/mm3 PT (9.4-12.5) SECONDS INR APTT (25.1-36.5) Seconds pCO2 (35-45) mm/Hg pO2 72 H (30-55) mm/Hg HCO3 (21-28) mmol/L ABG pH (7.35-7.45) ABG Total CO2 (22-28) mmol.L ABG O2 Saturation (95-98) % ABG O2 Content (15-23) ML/dl ABG Base Excess (-2.0-3.0) mmol/L ABG Hemoglobin (11.7-17.4) g/dL ABG Carboxyhemoglobin (0.5-1.5) % POC ABG HHb (Measured) (0-5) % ABG Methemoglobin (0.0-3.0) % ABG O2 Capacity (16-24) mL/dl VBG pH 7.09 L* (7.32-7.43) VBG pCO2 109.0 H* (40-60) VBG HCO3 33.1 H (21-28) mmol/l VBG Total CO2 36.4 H (22-28) mmol.L VBG O2 Sat (Calc) 93.1 H (40-65) % VBG Base Excess -0.1 L (0.0-2.0) mmol/L VBG Potassium 5.3 H (3.6-5.2) mmol/L Hgb O2 Saturation (95.0-98.0) % Sodium 142.0 143 (132-148) mmol/L Chloride 107.0 107 (98-107) mmol/L Glucose 187 H (75-110) mg/dl Lactate 1.4 (0.7-2.1) mmol/L FiO2 21.0 % Potassium 5.5 H (3.6-5.0) mmol/L Carbon Dioxide 32 (21-33) mmol/L Anion Gap 10 (10-20) BUN 38 H (7-21) mg/dL Creatinine 1.0 (0.8-1.5) mg/dl Est GFR ( Amer) > 60 Est GFR (Non-Af Amer) > 60 POC Glucose (mg/dL) (65-110) mg/dL Random Glucose 180 H (70-110) mg/dL Calcium 8.8 (8.4-10.5) mg/dL Phosphorus 4.2 (2.5-4.5) mg/dL Magnesium 2.2 (1.7-2.2) mg/dL Total Bilirubin 1.0 (0.2-1.3) mg/dL AST 38 (17-59) U/L ALT 15 (7-56) U/L Alkaline Phosphatase 76 (38-126) U/L Total Protein 7.0 (5.8-8.3) g/dL Albumin 3.8 (3.0-4.8) g/dL Globulin 3.1 gm/dL Albumin/Globulin Ratio 1.2 (1.1-1.8) Procalcitonin (0.19-0.49) NG/ML Venous Blood Potassium 5.3 H (3.6-5.2) mmol/L Blood Type O POSITIVE Blood Type Confirm Antibody Screen Negative Crossmatch See Detail BBK History Checked No verified bt 07/10/18 Range/Units 11:00 WBC (4.5-11.0) 10^3/ul RBC (3.5-6.1) 10^6/uL Hgb (14.0-18.0) g/dL Hct (42.0-52.0) % MCV (80.0-105.0) fl MCH (25.0-35.0) pg MCHC (31.0-37.0) g/dl RDW (11.5-14.5) % Plt Count (120.0-450.0) 10^3/uL MPV (7.0-11.0) fl Gran % (50.0-68.0) % Lymph % (Auto) (22.0-35.0) % [place] % (Auto) (1.0-6.0) % Eos % (Auto) (1.5-5.0) % Baso % (Auto) (0.0-3.0) % Gran # (1.4-6.5) Lymph # (Auto) (1.2-3.4) [place] # (Auto) (0.1-0.6) Eos # (Auto) (0.0-0.7) Baso # (Auto) (0.0-2.0) K/mm3 PT (9.4-12.5) SECONDS INR APTT (25.1-36.5) Seconds pCO2 (35-45) mm/Hg pO2 (30-55) mm/Hg HCO3 (21-28) mmol/L ABG pH (7.35-7.45) ABG Total CO2 (22-28) mmol.L ABG O2 Saturation (95-98) % ABG O2 Content (15-23) ML/dl ABG Base Excess (-2.0-3.0) mmol/L ABG Hemoglobin (11.7-17.4) g/dL ABG Carboxyhemoglobin (0.5-1.5) % POC ABG HHb (Measured) (0-5) % ABG Methemoglobin (0.0-3.0) % ABG O2 Capacity (16-24) mL/dl VBG pH (7.32-7.43) VBG pCO2 (40-60) VBG HCO3 (21-28) mmol/l VBG Total CO2 (22-28) mmol.L VBG O2 Sat (Calc) (40-65) % VBG Base Excess (0.0-2.0) mmol/L VBG Potassium (3.6-5.2) mmol/L Hgb O2 Saturation (95.0-98.0) % Sodium (132-148) mmol/L Chloride (98-107) mmol/L Glucose (75-110) mg/dl Lactate (0.7-2.1) mmol/L FiO2 % Potassium (3.6-5.0) mmol/L Carbon Dioxide (21-33) mmol/L Anion Gap (10-20) BUN (7-21) mg/dL Creatinine (0.8-1.5) mg/dl Est GFR ( Amer) Est GFR (Non-Af Amer) POC Glucose (mg/dL) (65-110) mg/dL Random Glucose (70-110) mg/dL Calcium (8.4-10.5) mg/dL Phosphorus (2.5-4.5) mg/dL Magnesium (1.7-2.2) mg/dL Total Bilirubin (0.2-1.3) mg/dL AST (17-59) U/L ALT (7-56) U/L Alkaline Phosphatase (38-126) U/L Total Protein (5.8-8.3) g/dL Albumin (3.0-4.8) g/dL Globulin gm/dL Albumin/Globulin Ratio (1.1-1.8) Procalcitonin 1.41 H (0.19-0.49) NG/ML Venous Blood Potassium (3.6-5.2) mmol/L Blood Type Blood Type Confirm Antibody Screen Crossmatch BBK History Checked Laboratory Results - last 24 hr 07/10/18 07/11/18 07/11/18 11:00 17:55 17:55 WBC RBC Hgb Hct MCV MCH MCHC RDW Plt Count MPV Gran % Lymph % (Auto) [place] % (Auto) Eos % (Auto) Baso % (Auto) Gran # Lymph # (Auto) [place] # (Auto) Eos # (Auto) Baso # (Auto) PT INR APTT pCO2 pO2 72 H HCO3 ABG pH ABG Total CO2 ABG O2 Saturation ABG O2 Content ABG Base Excess ABG Hemoglobin ABG Carboxyhemoglobin POC ABG HHb (Measured) ABG Methemoglobin ABG O2 Capacity VBG pH 7.09 L* VBG pCO2 109.0 H* VBG HCO3 33.1 H VBG Total CO2 36.4 H VBG O2 Sat (Calc) 93.1 H VBG Base Excess -0.1 L VBG Potassium 5.3 H Hgb O2 Saturation Sodium 143 142.0 Chloride 107 107.0 Glucose 187 H Lactate 1.4 FiO2 21.0 Potassium 5.5 H Carbon Dioxide 32 Anion Gap 10 BUN 38 H Creatinine 1.0 Est GFR ( Amer) > 60 Est GFR (Non-Af Amer) > 60 POC Glucose (mg/dL) Random Glucose 180 H Calcium 8.8 Phosphorus 4.2 Magnesium 2.2 Total Bilirubin 1.0 AST 38 ALT 15 Alkaline Phosphatase 76 Total Protein 7.0 Albumin 3.8 Globulin 3.1 Albumin/Globulin Ratio 1.2 Procalcitonin 1.41 H Venous Blood Potassium 5.3 H Blood Type Blood Type Confirm Antibody Screen Crossmatch BBK History Checked 07/11/18 07/11/18 07/11/18 17:58 17:58 17:58 WBC 18.5 H D RBC 4.77 Hgb 14.9 D Hct 47.6 MCV 99.8 MCH 31.2 MCHC 31.3 RDW 16.2 H Plt Count 223 MPV 11.5 H Gran % 90.2 H Lymph % (Auto) 4.0 L [place] % (Auto) 5.6 Eos % (Auto) 0.1 L Baso % (Auto) 0.1 Gran # 16.71 H Lymph # (Auto) 0.7 L [place] # (Auto) 1.0 H Eos # (Auto) 0.0 Baso # (Auto) 0.01 PT 13.1 H INR 1.15 APTT 33.2 pCO2 pO2 HCO3 ABG pH ABG Total CO2 ABG O2 Saturation ABG O2 Content ABG Base Excess ABG Hemoglobin ABG Carboxyhemoglobin POC ABG HHb (Measured) ABG Methemoglobin ABG O2 Capacity VBG pH VBG pCO2 VBG HCO3 VBG Total CO2 VBG O2 Sat (Calc) VBG Base Excess VBG Potassium Hgb O2 Saturation Sodium Chloride Glucose Lactate FiO2 Potassium Carbon Dioxide Anion Gap BUN Creatinine Est GFR ( Amer) Est GFR (Non-Af Amer) POC Glucose (mg/dL) Random Glucose Calcium Phosphorus Magnesium Total Bilirubin AST ALT Alkaline Phosphatase Total Protein Albumin Globulin Albumin/Globulin Ratio Procalcitonin Venous Blood Potassium Blood Type O POSITIVE Blood Type Confirm Antibody Screen Negative Crossmatch See Detail BBK History Checked No verified bt 07/11/18 07/11/18 07/11/18 18:24 18:30 23:15 WBC 16.3 H 19.6 H D RBC 4.49 4.31 Hgb 14.0 13.2 L Hct 44.5 43.3 MCV 99.1 100.5 MCH 31.2 30.6 MCHC 31.5 30.5 L RDW 16.2 H 16.2 H Plt Count 225 188 MPV 11.5 H 11.4 H Gran % 90.4 H Lymph % (Auto) 9.3 L [place] % (Auto) 3.1 0.2 L Eos % (Auto) 0.0 L 0.0 L Baso % (Auto) 0.1 0.1 Gran # 17.77 H Lymph # (Auto) 1.8 [place] # (Auto) 0.5 0.0 L Eos # (Auto) 0.0 0.0 Baso # (Auto) 0.01 0.01 PT INR APTT pCO2 pO2 HCO3 ABG pH ABG Total CO2 ABG O2 Saturation ABG O2 Content ABG Base Excess ABG Hemoglobin ABG Carboxyhemoglobin POC ABG HHb (Measured) ABG Methemoglobin ABG O2 Capacity VBG pH VBG pCO2 VBG HCO3 VBG Total CO2 VBG O2 Sat (Calc) VBG Base Excess VBG Potassium Hgb O2 Saturation Sodium Chloride Glucose Lactate FiO2 Potassium Carbon Dioxide Anion Gap BUN Creatinine Est GFR ( Amer) Est GFR (Non-Af Amer) POC Glucose (mg/dL) Random Glucose Calcium Phosphorus Magnesium Total Bilirubin AST ALT Alkaline Phosphatase Total Protein Albumin Globulin Albumin/Globulin Ratio Procalcitonin Venous Blood Potassium Blood Type Blood Type Confirm O POSITIVE Antibody Screen Crossmatch BBK History Checked 07/11/18 07/12/18 07/12/18 23:38 02:03 05:30 WBC 21.0 H RBC 4.26 Hgb 13.2 L Hct 42.7 MCV 100.2 MCH 31.0 MCHC 30.9 L RDW 16.3 H Plt Count 189 MPV 11.7 H Gran % 91.4 H Lymph % (Auto) 6.1 L [place] % (Auto) 2.5 Eos % (Auto) 0.0 L Baso % (Auto) 0.0 Gran # 19.15 H Lymph # (Auto) 1.3 [place] # (Auto) 0.5 Eos # (Auto) 0.0 Baso # (Auto) 0.00 PT INR APTT pCO2 pO2 HCO3 ABG pH ABG Total CO2 ABG O2 Saturation ABG O2 Content ABG Base Excess ABG Hemoglobin ABG Carboxyhemoglobin POC ABG HHb (Measured) ABG Methemoglobin ABG O2 Capacity VBG pH VBG pCO2 VBG HCO3 VBG Total CO2 VBG O2 Sat (Calc) VBG Base Excess VBG Potassium Hgb O2 Saturation Sodium 143 Chloride 108 H Glucose Lactate FiO2 Potassium 5.4 H Carbon Dioxide 33 Anion Gap 8 L BUN 41 H Creatinine 1.1 Est GFR ( Amer) > 60 Est GFR (Non-Af Amer) > 60 POC Glucose (mg/dL) 167 H Random Glucose 161 H Calcium 8.5 Phosphorus 5.2 H Magnesium 2.1 Total Bilirubin 0.8 AST 40 ALT 16 Alkaline Phosphatase 66 Total Protein 6.0 Albumin 3.3 Globulin 2.7 Albumin/Globulin Ratio 1.2 Procalcitonin Venous Blood Potassium Blood Type Blood Type Confirm Antibody Screen Crossmatch BBK History Checked 07/12/18 07/12/18 07/12/18 05:30 05:42 06:35 WBC 22.5 H RBC 4.41 Hgb 13.5 L Hct 44.7 MCV 101.4 MCH 30.6 MCHC 30.2 L RDW 16.3 H Plt Count 184 MPV 11.3 H Gran % 92.7 H Lymph % (Auto) 5.0 L [place] % (Auto) 2.3 Eos % (Auto) 0.0 L Baso % (Auto) 0.0 Gran # 20.81 H Lymph # (Auto) 1.1 L [place] # (Auto) 0.5 Eos # (Auto) 0.0 Baso # (Auto) 0.01 PT INR APTT pCO2 pO2 HCO3 ABG pH ABG Total CO2 ABG O2 Saturation ABG O2 Content ABG Base Excess ABG Hemoglobin ABG Carboxyhemoglobin POC ABG HHb (Measured) ABG Methemoglobin ABG O2 Capacity VBG pH VBG pCO2 VBG HCO3 VBG Total CO2 VBG O2 Sat (Calc) VBG Base Excess VBG Potassium Hgb O2 Saturation Sodium Chloride Glucose Lactate FiO2 Potassium Carbon Dioxide Anion Gap BUN Creatinine Est GFR ( Amer) Est GFR (Non-Af Amer) POC Glucose (mg/dL) 168 H Random Glucose Calcium Phosphorus Magnesium Total Bilirubin AST ALT Alkaline Phosphatase Total Protein Albumin Globulin Albumin/Globulin Ratio Procalcitonin 0.79 H Venous Blood Potassium Blood Type Blood Type Confirm Antibody Screen Crossmatch BBK History Checked 07/12/18 07/12/18 07/12/18 09:30 12:40 14:00 WBC 21.4 H 21.9 H RBC 4.19 4.36 Hgb 13.1 L 13.6 L Hct 42.4 44.5 MCV 101.2 102.1 MCH 31.3 31.2 MCHC 30.9 L 30.6 L RDW 16.3 H 16.2 H Plt Count 162 158 MPV 11.3 H 11.7 H Gran % 92.4 H 91.5 H Lymph % (Auto) 4.7 L 6.8 L [place] % (Auto) 2.9 1.7 Eos % (Auto) 0.0 L 0.0 L Baso % (Auto) 0.0 0.0 Gran # 19.76 H 20.01 H Lymph # (Auto) 1.0 L 1.5 [place] # (Auto) 0.6 0.4 Eos # (Auto) 0.0 0.0 Baso # (Auto) 0.00 0.01 PT INR APTT pCO2 113 H* pO2 89.0 HCO3 30.6 H ABG pH 7.04 L* ABG Total CO2 34.1 H ABG O2 Saturation 98.5 H ABG O2 Content 16.7 ABG Base Excess -2.8 L ABG Hemoglobin 12.4 ABG Carboxyhemoglobin 1.9 H POC ABG HHb (Measured) 1.5 ABG Methemoglobin 1.1 ABG O2 Capacity 17.0 VBG pH VBG pCO2 VBG HCO3 VBG Total CO2 VBG O2 Sat (Calc) VBG Base Excess VBG Potassium Hgb O2 Saturation 95.5 Sodium Chloride Glucose Lactate FiO2 100.0 Potassium Carbon Dioxide Anion Gap BUN Creatinine Est GFR ( Amer) Est GFR (Non-Af Amer) POC Glucose (mg/dL) Random Glucose Calcium Phosphorus Magnesium Total Bilirubin AST ALT Alkaline Phosphatase Total Protein Albumin Globulin Albumin/Globulin Ratio Procalcitonin Venous Blood Potassium Blood Type Blood Type Confirm Antibody Screen Crossmatch BBK History Checked 07/12/18 16:00 WBC RBC Hgb Hct MCV MCH MCHC RDW Plt Count MPV Gran % Lymph % (Auto) [place] % (Auto) Eos % (Auto) Baso % (Auto) Gran # Lymph # (Auto) [place] # (Auto) Eos # (Auto) Baso # (Auto) PT INR APTT pCO2 94 H* pO2 120.0 H HCO3 30.6 H ABG pH 7.12 L* ABG Total CO2 33.5 H ABG O2 Saturation 99.7 H ABG O2 Content 17.1 ABG Base Excess -1.1 ABG Hemoglobin 12.4 ABG Carboxyhemoglobin 1.8 H POC ABG HHb (Measured) 0.3 ABG Methemoglobin 0.9 ABG O2 Capacity 17.2 VBG pH VBG pCO2 VBG HCO3 VBG Total CO2 VBG O2 Sat (Calc) VBG Base Excess VBG Potassium Hgb O2 Saturation 97.1 Sodium Chloride Glucose Lactate FiO2 100.0 Potassium Carbon Dioxide Anion Gap BUN Creatinine Est GFR ( Amer) Est GFR (Non-Af Amer) POC Glucose (mg/dL) Random Glucose Calcium Phosphorus Magnesium Total Bilirubin AST ALT Alkaline Phosphatase Total Protein Albumin Globulin Albumin/Globulin Ratio Procalcitonin Venous Blood Potassium Blood Type Blood Type Confirm Antibody Screen Crossmatch BBK History Checked EKG/Cardiology Studies: Cardiology / EKG Studies 07/11/18 20:41 EKG [ELECTROCARDIOGRAM] Stat Comment: Reason For Exam: episodes of VTach Critical Care Progress Note - Nutrition Nutrition: Nutrition Category Date Time Status NPO Diet [DIET] Diets 07/12/18 Lunch Ordered Addendum Addendum: 07/12/18 17:43 ICU Attending Addendum: Patient seen and examined. Case reviewed on round with housestaff. Agree with resident note above with the following additions/exceptions: 88 M with Aortic stenosis, Afib, pHTN, Parkinsons, COPD admitted for HCRF and GI Bleeding As far as his GiB, reports of large amount of bright red blood hemetesis. HB is stable at 13. GI on board, f/u recs. No plan for scope at this point He is in HCRF, despite efforts to increase his delta on Bipap he continues to retain more CO2. He is now getting to an unstable level of acidosis with pG < 7.15 Will give bicarb incr RR and delta on Bipap Overall, he would need intubation however he is DNR and DNI and I do not see him improving despite non-invasive therapy abiding by his wishes. At this point, with his acidemia, hypoxemia, parkinsons and HCRF he may suffer without benefit of turning around. I think comfort care would be a reasonable next step. Will d/w Pal care team and hospitalist. Placed on amio last night for non-sustain VT which is ok for now given his hx of Afib as well. Acidemia and hypercapnea likely causing his ventricular arrythmia. rest of care above Compa Hidalgo MD Career Development Counselor Crtical Care TIme: 35 mins
[2018-07-12 14:30] LABS: BASO # 0.01 K/mm3 (0.0-2.0); GRAN # 20.01 (1.4-6.5); GRAN % 91.5 % (50.0-68.0); HEMOGLOBIN 13.6 g/dL (14.0-18.0); LYMPH # 1.5 (1.2-3.4); LYMPH % 6.8 % (22.0-35.0); MEAN CELL VOLUME 102.1 fl (80.0-105.0); MEAN CORPUSCULAR HEMOGLOBIN 31.2 pg (25.0-35.0); MEAN CORPUSCULAR HGB CONC 30.6 g/dl (31.0-37.0); MEAN PLATELET VOLUME 11.7 fl (7.0-11.0); MONO # 0.4 (0.1-0.6); MONO % 1.7 % (1.0-6.0); RBC 4.36 10^6/uL (3.5-6.1); RED CELL DISTRIBUTION WIDTH 16.2 % (11.5-14.5)
[2018-07-12 14:31] LABS: WHITE BLOOD COUNT 21.9 10^3/ul (4.5-11.0)
[2018-07-12] MEDS: Sodium Bicarbonate 8.4% 150 MEQ in Dextrose 5% In Water 1,000 ML IV SCH (15:05)
[2018-07-12 16:07] LABS: ARTERIAL BLOOD GAS HCO3 30.6 mmol/L (21-28); ARTERIAL BLOOD GAS HEMOGLOBIN 12.4 g/dL (11.7-17.4); ARTERIAL BLOOD GAS O2 CAPACITY 17.2 mL/dl (16-24); ARTERIAL BLOOD GAS O2 CONTENT 17.1 ML/dl (15-23); ARTERIAL BLOOD GAS O2 SAT 99.7 % (95-98); ARTERIAL BLOOD GAS PCO2 94 mm/Hg (35-45); ARTERIAL BLOOD GAS TCO2 33.5 mmol.L (22-28)
[2018-07-12 16:11] LABS: ARTERIAL BLOOD GAS PH 7.12 (7.35-7.45)
--- NOTE | 2018-07-12 17:04 | CP.PCM.PN ---
Subjective - Date & Time of Evaluation Date of Evaluation: 07/12/18 Time of Evaluation: 10:30 - Subjective Subjective: Noted events overnight, no fevers, but is currently requiring oxygen supplementation and is lethargic. Objective - Vital Signs/Intake and Output Vital Signs (last 24 hours): Temp Pulse Resp BP Pulse Ox 97.6 F 124 H 24 147/105 H 96 07/12/18 00:00 07/12/18 03:05 07/12/18 01:14 07/12/18 01:15 07/12/18 00:20 - Medications Medications: Current Medications Albuterol/Ipratropium (Duoneb 3 Mg/0.5 Mg (3 Ml) Ud) 3 ml IH [id number] SILVIA Last Admin: 07/12/18 02:47 Dose: 3 ml Carbidopa/Levodopa/Entacapone (Stalevo 150) 1 tab PO TID SILVIA Last Admin: 07/11/18 20:18 Dose: Not Given Guaifenesin (Mucinex La) 600 mg PO BID SILVIA Last Admin: 07/11/18 20:17 Dose: Not Given Meropenem (Merrem Iv 1 Gm Premix) 1 gm in 50 mls @ 100 mls/hr IVPB Q8 SLIVIA; Protocol Last Admin: 07/12/18 06:06 Dose: 100 mls/hr Pantoprazole Sodium (Protonix 40mg Ivpb) 40 mg in 100 mls @ 20 mls/hr IVPB .Q5H SILVIA Last Admin: 07/12/18 06:11 Dose: 20 mls/hr Amiodarone HCl/Dextrose (Nexterone 360 Mg In D5w 200 Ml (Premix)) 360 mg in 200 mls @ 16.667 mls/hr IV .Q12H [facility]IL[facility]IA; Protocol Last Admin: 07/12/18 04:01 Dose: 16.667 mls/hr Mirtazapine (Remeron) 15 mg PO HS SILVIA Last Admin: 07/11/18 22:14 Dose: Not Given Pramipexole Dihydrochloride (Mirapex) 1 mg PO TID SILVIA Last Admin: 07/11/18 20:16 Dose: Not Given - Labs Labs: 07/12/18 02:03 07/11/18 17:55 PT 13.1 SECONDS (9.4-12.5) H 07/11/18 17:58 INR 1.15 07/11/18 17:58 APTT 33.2 Seconds (25.1-36.5) 07/11/18 17:58 - Constitutional Appears: Chronically Ill - Head Exam Head Exam: NORMAL INSPECTION - Respiratory Exam Respiratory Exam: Decreased Breath Sounds - Cardiovascular Exam Cardiovascular Exam: +S1, +S2 - GI/Abdominal Exam GI & Abdominal Exam: Soft. absent: Tenderness Assessment and Plan - Assessment and Plan (Free Text) Plan: Assessment Severe sepsis S/P ventilator-dependent respiratory failure, improving acute toxic-metabolic encephalopathy due to right sided severe pneumonia CAD chronic CHF HTN COPD pulmonary HTN Parkinson's disease Plan continue Merrem and Levaquin day 6 - blood cx are negative and MRSA nares is negative; sputum cx is showing yeast which is probably just contamination urine Legionella Ag is negative; PCT is 2.61 and we will trend (repeat is 1.41); reviewed CXR will continue to monitor clinically overall prognosis is poor
--- NOTE | 2018-07-12 18:23 | PN ---
DATE: 07/12/2018 CARDIOLOGY FOLLOWUP SUBJECTIVE: The patient was transferred to the ICU because of hemodynamic instability. PHYSICAL EXAMINATION: GENERAL: The patient is lethargic, without chest pain. VITAL SIGNS: Blood pressure 101/40, heart is in the 60s. NECK: Negative JVD. LUNGS: Without rales. HEART: With 3/6 systolic ejection murmur. EXTREMITIES: Without edema. LABORATORY DATA: Hemoglobin is 13, white count is up to 21,000. BUN and creatinine is 41 and 1.1. IMPRESSION: 1. Critical aortic stenosis. 2. Dilated cardiomyopathy. 3. Hypertension. 4. Coronary artery disease. 5. Atrial fibrillation. PLAN: Given these findings, after extensive discussion, cardiac catheterization was refused. The patient's status became a DNR. No further invasive intervention is planned. However, last night, the patient developed ventricular tachycardia. He was started on IV amiodarone. Nasir Justice MD
[2018-07-13] MEDS: Sodium Bicarbonate 8.4% 150 MEQ in Dextrose 5% In Water 1,000 ML IV SCH (03:15)
[2018-07-13] MEDS ORDERED: Sodium Chloride 0.9% 500 ML IV STA (03:25)
[2018-07-13] MEDS: Amiodarone 360 mg/D5W 200 ml 360 MG/200 ML BAG IV SCH (05:05)
[2018-07-13] MEDS: Meropenem IV 1 gm in NS 1 GM/50 ML BAG IVPB SCH (05:06)
[2018-07-13 06:53] LABS: ALBUMIN 2.8 g/dL (3.0-4.8); CALCIUM 8.1 mg/dL (8.4-10.5)
[2018-07-13] MEDS: Vancomycin 1gm in NS 250ml 1 GM/250 ML BAG IVPB SCH (07:27)
[2018-07-13] MEDS: Albuterol-Ipratrop 3 mg / 0.5 (3 ml) UD IH SCH (07:33)
[2018-07-13 08:11] VITALS: BP 95/44
[2018-07-13 08:23] LABS: ARTERIAL BLOOD GAS HCO3 33.3 mmol/L (21-28); ARTERIAL BLOOD GAS HEMOGLOBIN 11.7 g/dL (11.7-17.4); ARTERIAL BLOOD GAS O2 CAPACITY 16.2 mL/dl (16-24); ARTERIAL BLOOD GAS O2 CONTENT 16.1 ML/dl (15-23); ARTERIAL BLOOD GAS O2 SAT 99.2 % (95-98); ARTERIAL BLOOD GAS TCO2 37.8 mmol.L (22-28)
[2018-07-13 08:26] LABS: ARTERIAL BLOOD GAS PH 6.96 (7.35-7.45)
[2018-07-13 08:27] LABS: ARTERIAL BLOOD GAS PCO2 148 mm/Hg (35-45)
[2018-07-13] MEDS ORDERED: Morphine 2 mg/ml ISec IVP PRN ×3 (08:31→09:01)
--- NOTE | 2018-07-13 08:34 | CP.PCM.PN ---
Objective - Vital Signs/Intake and Output Vital Signs (last 24 hours): Temp Pulse Resp BP Pulse Ox 97.1 F L 60 33 H 95/44 L 91 L 07/12/18 11:50 07/13/18 08:08 07/13/18 08:08 07/13/18 08:09 07/13/18 08:08 Intake and Output: 07/13/18 07/13/18 06:59 18:59 Intake Total 2254 Output Total 50 Balance 2204 - Medications Medications: Current Medications Albuterol/Ipratropium (Duoneb 3 Mg/0.5 Mg (3 Ml) Ud) 3 ml IH [id number] SILVIA Last Admin: 07/13/18 07:33 Dose: 3 ml Carbidopa/Levodopa/Entacapone (Stalevo 150) 1 tab PO TID SILVIA Last Admin: 07/12/18 17:31 Dose: Not Given Guaifenesin (Mucinex La) 600 mg PO BID SILVIA Last Admin: 07/12/18 17:31 Dose: Not Given Meropenem (Merrem Iv 1 Gm Premix) 1 gm in 50 mls @ 100 mls/hr IVPB Q8 [facility]; Protocol Last Admin: 07/13/18 05:06 Dose: 100 mls/hr Amiodarone HCl/Dextrose (Nexterone 360 Mg In D5w 200 Ml (Premix)) 360 mg in 200 mls @ 16.667 mls/hr IV .Q12H [facility]; Protocol Last Admin: 07/13/18 05:05 Dose: 16.667 mls/hr Levofloxacin/Dextrose (Levaquin 750mg) 750 mg in 150 mls @ 100 mls/hr IVPB DAILY [facility]IL[facility]; Protocol Last Admin: 07/12/18 10:08 Dose: 100 mls/hr Vancomycin HCl (Vancomycin 1gm) 1 gm in 250 mls @ 167 mls/hr IVPB Q12H [facility]IL[facility]; Protocol Last Admin: 07/13/18 07:27 Dose: 167 mls/hr Sodium Bicarbonate 150 meq/ (Dextrose) 1,150 mls @ 100 mls/hr IV .[id number] [facility]IL[facility]IA Last Admin: 07/13/18 03:15 Dose: 100 mls/hr Mirtazapine (Remeron) 15 mg PO HS SILVIA Last Admin: 07/12/18 22:45 Dose: Not Given Morphine Sulfate (Morphine) 2 mg IVP Q2M PRN PRN Reason: Other Pantoprazole Sodium (Protonix Inj) 40 mg IVP Q12 [facility] Last Admin: 07/12/18 22:17 Dose: 40 mg Pramipexole Dihydrochloride (Mirapex) 1 mg PO TID [facility] Last Admin: 07/12/18 17:31 Dose: Not Given - Labs Labs: 07/12/18 14:00 07/13/18 05:26 PT 13.1 SECONDS (9.4-12.5) H 07/11/18 17:58 INR 1.15 07/11/18 17:58 APTT 33.2 Seconds (25.1-36.5) 07/11/18 17:58 Assessment and Plan - Assessment and Plan (Free Text) Assessment: 88 yo WM with Aortic stenosis, Afib, pHTN, Parkinsons, COPD admitted for respiratory failure and AMS on 07/06, now has coffee-ground emesis. # Hematemesis: Coffee ground with >1 L output from NG. Has risk factors of recent steroid use and subQ herpain use to put at risk for GI bleed. Surprisingly, Hgb stable overnight, therefore wonder if was large amount of old blood that was finally thrown up? Nonetheless, pt mental status/clinical status not stable for EGD without intubation which is not within patient's goals of care. # Goals of Care: Pt recent had extensive discussion with staff and was deemed to have decision making capacity for himself on 07/10/18. Patients wishes are to be DNR/DNI. Plan: Prelim note, recs not final until signed and staffed - PPI IV BID - Monitor Hgb q 8 hrs, transfuse if < 7 - IVF support - 2 large bore IVs - No plans for endoscopy at this time as patient is too unstable. Furthermore, pt would need intubation at current status but that would not be within patient's desired goals of care. Therefore, need to optimize medically - Agree with palliative care consult Pt seen and examined with Dr. Esquivel; see attestation for further recs/changes.
--- NOTE | 2018-07-13 08:58 | CP.CCUPN ---
<Phu Muniz - Last Filed: 07/13/18 09:01> CCU Subjective - Physician Review Subjective (Free Text): Phu Muniz, PGY-1, CCU Progress Note for Dr. Hidalgo Patient seen and examined at bedside. Patient was minimally responsive and is neurologically declining. Patient was taken off BiPap and made comfort care. Patient's niece, who is health care proxy, was called and explained the situation. 12-point ROS was not reviewable due to patient's mental status. CCU Objective - Vital Signs / Intake & Output Vital Signs (Last 4 hours): Vital Signs Pulse Resp BP Pulse Ox 07/13/18 08:09 95/44 L 07/13/18 08:08 60 33 H 91 L 07/13/18 08:00 62 19 79/35 L 87 L 07/13/18 07:50 60 18 90 L 07/13/18 07:40 60 18 89 L 07/13/18 07:30 64 18 93 L 07/13/18 07:20 64 18 97 07/13/18 07:10 59 L 13 90 L 07/13/18 07:00 92/49 L 07/13/18 06:50 63 15 95 07/13/18 06:40 63 11 L 93 L 07/13/18 06:30 64 17 96 07/13/18 06:20 60 14 94 L 07/13/18 06:10 61 15 96 07/13/18 06:00 62 17 101/47 L 94 L 07/13/18 05:50 60 8 L 92 L 07/13/18 05:40 65 12 97 07/13/18 05:30 63 15 96 07/13/18 05:20 71 18 93 L 07/13/18 05:10 68 18 95 07/13/18 05:00 64 7 L 107/46 L 93 L Intake and Output (Last 8hrs): Intake & Output 07/12/18 07/13/18 07/13/18 22:59 06:59 14:59 Intake Total 1080 2254 Output Total 50 50 Balance 1030 2204 Weight 206 lb 6.4 oz Intake: IV 1080 2254 0.9NS BOLUS 500 ANTIBIOTIC 350 Left Forearm 204 Left Hand 1080 1200 Output: Urine 50 50 Urethral (Davis) 50 50 - Physical Exam Head: Positive for: Atraumatic Pupils: Positive for: Non-Reactive, Pinpoint Extroacular Muscles: Positive for: Other (positive doll's eyes, negative corneal reflex) Conjunctiva: Negative for: Injected Mouth: Positive for: Dry Pharnyx: Negative for: ERYTHEMA Neck: Negative for: Meningeal Signs Respiratory/Chest: Positive for: Respiratory Distress, Decreased Breath Sounds, Rales, Rhonchi, Tachypneic. Negative for: Good Air Exchange, Tender to Palpation Cardiovascular: Positive for: Murmurs, Tachycardic Abdomen: Negative for: Tenderness Back: Negative for: CVA Tenderness Upper Extremity: Negative for: Edema Lower Extremity: Positive for: Edema. Negative for: CALF TENDERNESS Neurological: Positive for: Other (negative babinski, negative to minimal gag reflex). Negative for: GCS=15, CN II-XII Intact, Speech Normal, Motor Func Grossly Intact Skin: Positive for: Pale Psychiatric: Negative for: Alert, Oriented x 3 - Medications Active Medications: Active Medications Generic Name Dose Route Start Last Admin Trade Name Freq PRN Reason Stop Dose Admin Morphine Sulfate 2 mg 07/13/18 08:31 Morphine IVP Q2M PRN Other - Patient Studies Lab Studies: Microbiology Studies 07/12/18 06:52 Blood Culture - Preliminary Blood-Venous NO GROWTH AFTER 24 HOURS 07/12/18 06:35 Blood Culture - Preliminary Blood-Venous NO GROWTH AFTER 24 HOURS Lab Studies 07/13/18 07/13/18 07/12/18 Range/Units 07:20 05:26 22:06 WBC (4.5-11.0) 10^3/ul RBC (3.5-6.1) 10^6/uL Hgb (14.0-18.0) g/dL Hct (42.0-52.0) % MCV (80.0-105.0) fl MCH (25.0-35.0) pg MCHC (31.0-37.0) g/dl RDW (11.5-14.5) % Plt Count (120.0-450.0) 10^3/uL MPV (7.0-11.0) fl Gran % (50.0-68.0) % Lymph % (Auto) (22.0-35.0) % Hood % (Auto) (1.0-6.0) % Eos % (Auto) (1.5-5.0) % Baso % (Auto) (0.0-3.0) % Gran # (1.4-6.5) Lymph # (Auto) (1.2-3.4) Hood # (Auto) (0.1-0.6) Eos # (Auto) (0.0-0.7) Baso # (Auto) (0.0-2.0) K/mm3 pCO2 148 H* (35-45) mm/Hg pO2 119.0 H (80-100) mm/Hg HCO3 33.3 H (21-28) mmol/L ABG pH 6.96 L* (7.35-7.45) ABG Total CO2 37.8 H (22-28) mmol.L ABG O2 Saturation 99.2 H (95-98) % ABG O2 Content 16.1 (15-23) ML/dl ABG Base Excess -1.9 (-2.0-3.0) mmol/L ABG Hemoglobin 11.7 (11.7-17.4) g/dL ABG Carboxyhemoglobin 1.8 H (0.5-1.5) % POC ABG HHb (Measured) 0.8 (0-5) % ABG Methemoglobin 0.7 (0.0-3.0) % ABG O2 Capacity 16.2 (16-24) mL/dl Hgb O2 Saturation 96.7 (95.0-98.0) % FiO2 100.0 % Sodium 143 (132-148) mmol/L Potassium 5.6 H* (3.6-5.0) mmol/L Chloride 106 (98-107) mmol/L Carbon Dioxide 34 H (21-33) mmol/L Anion Gap 9 L (10-20) BUN 47 H (7-21) mg/dL Creatinine 1.6 H (0.8-1.5) mg/dl Est GFR ( Amer) 50 Est GFR (Non-Af Amer) 41 POC Glucose (mg/dL) 150 H (65-110) mg/dL Random Glucose 159 H (70-110) mg/dL Calcium 8.1 L (8.4-10.5) mg/dL Phosphorus 6.0 H (2.5-4.5) mg/dL Magnesium 2.2 (1.7-2.2) mg/dL Total Bilirubin 0.6 (0.2-1.3) mg/dL AST 28 (17-59) U/L ALT 17 (7-56) U/L Alkaline Phosphatase 53 (38-126) U/L Total Protein 5.4 L (5.8-8.3) g/dL Albumin 2.8 L (3.0-4.8) g/dL Globulin 2.7 gm/dL Albumin/Globulin Ratio 1.0 L (1.1-1.8) Procalcitonin (0.19-0.49) NG/ML 07/12/18 07/12/18 07/12/18 Range/Units 17:52 16:00 14:00 WBC 21.9 H (4.5-11.0) 10^3/ul RBC 4.36 (3.5-6.1) 10^6/uL Hgb 13.6 L (14.0-18.0) g/dL Hct 44.5 (42.0-52.0) % MCV 102.1 (80.0-105.0) fl MCH 31.2 (25.0-35.0) pg MCHC 30.6 L (31.0-37.0) g/dl RDW 16.2 H (11.5-14.5) % Plt Count 158 (120.0-450.0) 10^3/uL MPV 11.7 H (7.0-11.0) fl Gran % 91.5 H (50.0-68.0) % Lymph % (Auto) 6.8 L (22.0-35.0) % Hood % (Auto) 1.7 (1.0-6.0) % Eos % (Auto) 0.0 L (1.5-5.0) % Baso % (Auto) 0.0 (0.0-3.0) % Gran # 20.01 H (1.4-6.5) Lymph # (Auto) 1.5 (1.2-3.4) Hood # (Auto) 0.4 (0.1-0.6) Eos # (Auto) 0.0 (0.0-0.7) Baso # (Auto) 0.01 (0.0-2.0) K/mm3 pCO2 94 H* (35-45) mm/Hg pO2 120.0 H (80-100) mm/Hg HCO3 30.6 H (21-28) mmol/L ABG pH 7.12 L* (7.35-7.45) ABG Total CO2 33.5 H (22-28) mmol.L ABG O2 Saturation 99.7 H (95-98) % ABG O2 Content 17.1 (15-23) ML/dl ABG Base Excess -1.1 (-2.0-3.0) mmol/L ABG Hemoglobin 12.4 (11.7-17.4) g/dL ABG Carboxyhemoglobin 1.8 H (0.5-1.5) % POC ABG HHb (Measured) 0.3 (0-5) % ABG Methemoglobin 0.9 (0.0-3.0) % ABG O2 Capacity 17.2 (16-24) mL/dl Hgb O2 Saturation 97.1 (95.0-98.0) % FiO2 100.0 % Sodium (132-148) mmol/L Potassium (3.6-5.0) mmol/L Chloride (98-107) mmol/L Carbon Dioxide (21-33) mmol/L Anion Gap (10-20) BUN (7-21) mg/dL Creatinine (0.8-1.5) mg/dl Est GFR ( Amer) Est GFR (Non-Af Amer) POC Glucose (mg/dL) 134 H (65-110) mg/dL Random Glucose (70-110) mg/dL Calcium (8.4-10.5) mg/dL Phosphorus (2.5-4.5) mg/dL Magnesium (1.7-2.2) mg/dL Total Bilirubin (0.2-1.3) mg/dL AST (17-59) U/L ALT (7-56) U/L Alkaline Phosphatase (38-126) U/L Total Protein (5.8-8.3) g/dL Albumin (3.0-4.8) g/dL Globulin gm/dL Albumin/Globulin Ratio (1.1-1.8) Procalcitonin (0.19-0.49) NG/ML 07/12/18 07/12/18 07/12/18 Range/Units 12:40 11:33 09:30 WBC 21.4 H (4.5-11.0) 10^3/ul RBC 4.19 (3.5-6.1) 10^6/uL Hgb 13.1 L (14.0-18.0) g/dL Hct 42.4 (42.0-52.0) % MCV 101.2 (80.0-105.0) fl MCH 31.3 (25.0-35.0) pg MCHC 30.9 L (31.0-37.0) g/dl RDW 16.3 H (11.5-14.5) % Plt Count 162 (120.0-450.0) 10^3/uL MPV 11.3 H (7.0-11.0) fl Gran % 92.4 H (50.0-68.0) % Lymph % (Auto) 4.7 L (22.0-35.0) % Hood % (Auto) 2.9 (1.0-6.0) % Eos % (Auto) 0.0 L (1.5-5.0) % Baso % (Auto) 0.0 (0.0-3.0) % Gran # 19.76 H (1.4-6.5) Lymph # (Auto) 1.0 L (1.2-3.4) Hood # (Auto) 0.6 (0.1-0.6) Eos # (Auto) 0.0 (0.0-0.7) Baso # (Auto) 0.00 (0.0-2.0) K/mm3 pCO2 113 H* (35-45) mm/Hg pO2 89.0 (80-100) mm/Hg HCO3 30.6 H (21-28) mmol/L ABG pH 7.04 L* (7.35-7.45) ABG Total CO2 34.1 H (22-28) mmol.L ABG O2 Saturation 98.5 H (95-98) % ABG O2 Content 16.7 (15-23) ML/dl ABG Base Excess -2.8 L (-2.0-3.0) mmol/L ABG Hemoglobin 12.4 (11.7-17.4) g/dL ABG Carboxyhemoglobin 1.9 H (0.5-1.5) % POC ABG HHb (Measured) 1.5 (0-5) % ABG Methemoglobin 1.1 (0.0-3.0) % ABG O2 Capacity 17.0 (16-24) mL/dl Hgb O2 Saturation 95.5 (95.0-98.0) % FiO2 100.0 % Sodium (132-148) mmol/L Potassium (3.6-5.0) mmol/L Chloride (98-107) mmol/L Carbon Dioxide (21-33) mmol/L Anion Gap (10-20) BUN (7-21) mg/dL Creatinine (0.8-1.5) mg/dl Est GFR ( Amer) Est GFR (Non-Af Amer) POC Glucose (mg/dL) 134 H (65-110) mg/dL Random Glucose (70-110) mg/dL Calcium (8.4-10.5) mg/dL Phosphorus (2.5-4.5) mg/dL Magnesium (1.7-2.2) mg/dL Total Bilirubin (0.2-1.3) mg/dL AST (17-59) U/L ALT (7-56) U/L Alkaline Phosphatase (38-126) U/L Total Protein (5.8-8.3) g/dL Albumin (3.0-4.8) g/dL Globulin gm/dL Albumin/Globulin Ratio (1.1-1.8) Procalcitonin (0.19-0.49) NG/ML 07/12/18 Range/Units 06:35 WBC (4.5-11.0) 10^3/ul RBC (3.5-6.1) 10^6/uL Hgb (14.0-18.0) g/dL Hct (42.0-52.0) % MCV (80.0-105.0) fl MCH (25.0-35.0) pg MCHC (31.0-37.0) g/dl RDW (11.5-14.5) % Plt Count (120.0-450.0) 10^3/uL MPV (7.0-11.0) fl Gran % (50.0-68.0) % Lymph % (Auto) (22.0-35.0) % Hood % (Auto) (1.0-6.0) % Eos % (Auto) (1.5-5.0) % Baso % (Auto) (0.0-3.0) % Gran # (1.4-6.5) Lymph # (Auto) (1.2-3.4) Hood # (Auto) (0.1-0.6) Eos # (Auto) (0.0-0.7) Baso # (Auto) (0.0-2.0) K/mm3 pCO2 (35-45) mm/Hg pO2 (80-100) mm/Hg HCO3 (21-28) mmol/L ABG pH (7.35-7.45) ABG Total CO2 (22-28) mmol.L ABG O2 Saturation (95-98) % ABG O2 Content (15-23) ML/dl ABG Base Excess (-2.0-3.0) mmol/L ABG Hemoglobin (11.7-17.4) g/dL ABG Carboxyhemoglobin (0.5-1.5) % POC ABG HHb (Measured) (0-5) % ABG Methemoglobin (0.0-3.0) % ABG O2 Capacity (16-24) mL/dl Hgb O2 Saturation (95.0-98.0) % FiO2 % Sodium (132-148) mmol/L Potassium (3.6-5.0) mmol/L Chloride (98-107) mmol/L Carbon Dioxide (21-33) mmol/L Anion Gap (10-20) BUN (7-21) mg/dL Creatinine (0.8-1.5) mg/dl Est GFR ( Amer) Est GFR (Non-Af Amer) POC Glucose (mg/dL) (65-110) mg/dL Random Glucose (70-110) mg/dL Calcium (8.4-10.5) mg/dL Phosphorus (2.5-4.5) mg/dL Magnesium (1.7-2.2) mg/dL Total Bilirubin (0.2-1.3) mg/dL AST (17-59) U/L ALT (7-56) U/L Alkaline Phosphatase (38-126) U/L Total Protein (5.8-8.3) g/dL Albumin (3.0-4.8) g/dL Globulin gm/dL Albumin/Globulin Ratio (1.1-1.8) Procalcitonin 0.79 H (0.19-0.49) NG/ML Laboratory Results - last 24 hr 07/12/18 07/12/18 07/12/18 06:35 09:30 11:33 WBC 21.4 H RBC 4.19 Hgb 13.1 L Hct 42.4 MCV 101.2 MCH 31.3 MCHC 30.9 L RDW 16.3 H Plt Count 162 MPV 11.3 H Gran % 92.4 H Lymph % (Auto) 4.7 L Hood % (Auto) 2.9 Eos % (Auto) 0.0 L Baso % (Auto) 0.0 Gran # 19.76 H Lymph # (Auto) 1.0 L Hood # (Auto) 0.6 Eos # (Auto) 0.0 Baso # (Auto) 0.00 pCO2 pO2 HCO3 ABG pH ABG Total CO2 ABG O2 Saturation ABG O2 Content ABG Base Excess ABG Hemoglobin ABG Carboxyhemoglobin POC ABG HHb (Measured) ABG Methemoglobin ABG O2 Capacity Hgb O2 Saturation FiO2 Sodium Potassium Chloride Carbon Dioxide Anion Gap BUN Creatinine Est GFR ( Amer) Est GFR (Non-Af Amer) POC Glucose (mg/dL) 134 H Random Glucose Calcium Phosphorus Magnesium Total Bilirubin AST ALT Alkaline Phosphatase Total Protein Albumin Globulin Albumin/Globulin Ratio Procalcitonin 0.79 H 07/12/18 07/12/18 07/12/18 12:40 14:00 16:00 WBC 21.9 H RBC 4.36 Hgb 13.6 L Hct 44.5 MCV 102.1 MCH 31.2 MCHC 30.6 L RDW 16.2 H Plt Count 158 MPV 11.7 H Gran % 91.5 H Lymph % (Auto) 6.8 L Hood % (Auto) 1.7 Eos % (Auto) 0.0 L Baso % (Auto) 0.0 Gran # 20.01 H Lymph # (Auto) 1.5 Hood # (Auto) 0.4 Eos # (Auto) 0.0 Baso # (Auto) 0.01 pCO2 113 H* 94 H* pO2 89.0 120.0 H HCO3 30.6 H 30.6 H ABG pH 7.04 L* 7.12 L* ABG Total CO2 34.1 H 33.5 H ABG O2 Saturation 98.5 H 99.7 H ABG O2 Content 16.7 17.1 ABG Base Excess -2.8 L -1.1 ABG Hemoglobin 12.4 12.4 ABG Carboxyhemoglobin 1.9 H 1.8 H POC ABG HHb (Measured) 1.5 0.3 ABG Methemoglobin 1.1 0.9 ABG O2 Capacity 17.0 17.2 Hgb O2 Saturation 95.5 97.1 FiO2 100.0 100.0 Sodium Potassium Chloride Carbon Dioxide Anion Gap BUN Creatinine Est GFR ( Amer) Est GFR (Non-Af Amer) POC Glucose (mg/dL) Random Glucose Calcium Phosphorus Magnesium Total Bilirubin AST ALT Alkaline Phosphatase Total Protein Albumin Globulin Albumin/Globulin Ratio Procalcitonin 07/12/18 07/12/18 07/13/18 17:52 22:06 05:26 WBC RBC Hgb Hct MCV MCH MCHC RDW Plt Count MPV Gran % Lymph % (Auto) Hood % (Auto) Eos % (Auto) Baso % (Auto) Gran # Lymph # (Auto) Hood # (Auto) Eos # (Auto) Baso # (Auto) pCO2 pO2 HCO3 ABG pH ABG Total CO2 ABG O2 Saturation ABG O2 Content ABG Base Excess ABG Hemoglobin ABG Carboxyhemoglobin POC ABG HHb (Measured) ABG Methemoglobin ABG O2 Capacity Hgb O2 Saturation FiO2 Sodium 143 Potassium 5.6 H* Chloride 106 Carbon Dioxide 34 H Anion Gap 9 L BUN 47 H Creatinine 1.6 H Est GFR ( Amer) 50 Est GFR (Non-Af Amer) 41 POC Glucose (mg/dL) 134 H 150 H Random Glucose 159 H Calcium 8.1 L Phosphorus 6.0 H Magnesium 2.2 Total Bilirubin 0.6 AST 28 ALT 17 Alkaline Phosphatase 53 Total Protein 5.4 L Albumin 2.8 L Globulin 2.7 Albumin/Globulin Ratio 1.0 L Procalcitonin 07/13/18 07:20 WBC RBC Hgb Hct MCV MCH MCHC RDW Plt Count MPV Gran % Lymph % (Auto) Hood % (Auto) Eos % (Auto) Baso % (Auto) Gran # Lymph # (Auto) Hood # (Auto) Eos # (Auto) Baso # (Auto) pCO2 148 H* pO2 119.0 H HCO3 33.3 H ABG pH 6.96 L* ABG Total CO2 37.8 H ABG O2 Saturation 99.2 H ABG O2 Content 16.1 ABG Base Excess -1.9 ABG Hemoglobin 11.7 ABG Carboxyhemoglobin 1.8 H POC ABG HHb (Measured) 0.8 ABG Methemoglobin 0.7 ABG O2 Capacity 16.2 Hgb O2 Saturation 96.7 FiO2 100.0 Sodium Potassium Chloride Carbon Dioxide Anion Gap BUN Creatinine Est GFR ( Amer) Est GFR (Non-Af Amer) POC Glucose (mg/dL) Random Glucose Calcium Phosphorus Magnesium Total Bilirubin AST ALT Alkaline Phosphatase Total Protein Albumin Globulin Albumin/Globulin Ratio Procalcitonin Fingerstick Blood Sugar Results: 165 Review of Systems - Review of Systems Systems not reviewed;Unavailable: Altered Mental Status Critical Care Progress Note - Ventilator Checklist Head of Bed 30 Degrees: Yes PUD Prophalyxis: Yes DVT Prophylaxis: Yes - Extremities/Vascular Does the Patient have a Central Venous Catheter?: No Does the Patient have a Davis Catheter?: Yes - Nutrition Nutrition: Nutrition Category Date Time Status NPO Diet [DIET] Diets 07/12/18 Lunch Ordered Assessment/Plan - Assessment and Plan (Free Text) Assessment: 88 year old male with past medical history of CHF, pulmonary HTN, COPD, NSTEMI, prostate cancer, atrial fibrillation, aortic stenosis, Parkinson's, Alzheimer's presents with altered mental status and coughing progressing to gurgling and unresponsive nature. Yesterday, patient was having active hematemesis and had about 500 cc of blood suctioned. Patient was in respiratory distress needed BiPap and was transferred to ICU. Plan: Neuro: -AAOx0, negative corneal reflex, pupillary reflex, gag reflex, babinski reflex -Head CT on 07/06 showed no acute findings. -Patient minimally responsive and neurologically declining. Cardio: -regular rate, hypotensive at 95/44 -Echo: EF: 65%, severe aortic stenosis Pulm: -Patient in respiratory distress. BiPap removed. Patient to have comfort care with morphine and nasal cannula oxygen -ABG: pH: 6.96, pCO2: 148, pO2: 119 -Patient is DNR/DNI -Elevate bed to 30 degrees GI: -NPO /Nephro: -BUN/Cr stable at 47/1.6 likely due to CHF vs. dehydration. -UA: 100 protein, 15 ketones, trace lysed blood, small bilirubin, trace leukocyte esterase, 1-3 RBC, 1-3 WBC, 0-2 epithelial cells, trace bacteria Endocrinology: -Random glucose: 159 -Maintain euglycemia. Heme/Onc: -H/H stable at 13.6 from 13.5. ID: -Afebrile, leukocytosis at 21.9 -Blood culture shows no growth in 5 days. Urine culture is negative. MRSA nare culture is negative. Tracheal culture: showed yeast species Disposition: Patient's ABG shows bad prognosis. Patient was placed on comfort care due to DNR/DNI status and will start on morphine. Niece has been called and she reports arrangements will be made by Mr. Chávez. Patient seen and examined with Dr. Hidalgo. - Date & Time Date: 07/13/18 Time: 09:01 <Compa Hidalgo - Last Filed: 07/13/18 10:05> CCU Objective - Vital Signs / Intake & Output Vital Signs (Last 4 hours): Vital Signs Pulse Resp BP Pulse Ox 07/13/18 09:19 61 07/13/18 08:09 95/44 L 07/13/18 08:08 60 33 H 91 L 07/13/18 08:00 62 19 79/35 L 87 L 07/13/18 07:50 60 18 90 L 07/13/18 07:40 60 18 89 L 07/13/18 07:30 64 18 93 L 07/13/18 07:20 64 18 97 07/13/18 07:10 59 L 13 90 L 07/13/18 07:00 92/49 L 07/13/18 06:50 63 15 95 07/13/18 06:40 63 11 L 93 L 07/13/18 06:30 64 17 96 07/13/18 06:20 60 14 94 L 07/13/18 06:10 61 15 96 07/13/18 06:00 62 17 101/47 L 94 L Intake and Output (Last 8hrs): Intake & Output 07/12/18 07/13/18 07/13/18 22:59 06:59 14:59 Intake Total 1080 2254 Output Total 50 50 Balance 1030 2204 Weight 93.621 kg Intake: IV 1080 2254 0.9NS BOLUS 500 ANTIBIOTIC 350 Left Forearm 204 Left Hand 1080 1200 Output: Urine 50 50 Urethral (Davis) 50 50 - Medications Active Medications: Active Medications Generic Name Dose Route Start Last Admin Trade Name Freq PRN Reason Stop Dose Admin Morphine Sulfate 30 mls @ 2 mls/hr 07/13/18 09:30 07/13/18 09:41 Morphine Soup Person 1 Mg/Ml IV 2 mg/hr PRN PRN 2 mls/hr [employer] 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 PER MD ORDER Administration Protocol 2 MG/HR Morphine Sulfate 2 mg 07/13/18 08:31 07/13/18 09:29 Morphine IVP 2 mg Q2M PRN Administration Other - Patient Studies Lab Studies: Microbiology Studies 07/12/18 06:52 Blood Culture - Preliminary Blood-Venous NO GROWTH AFTER 24 HOURS 07/12/18 06:35 Blood Culture - Preliminary Blood-Venous NO GROWTH AFTER 24 HOURS Lab Studies 07/13/18 07/13/18 07/12/18 Range/Units 07:20 05:26 22:06 WBC (4.5-11.0) 10^3/ul RBC (3.5-6.1) 10^6/uL Hgb (14.0-18.0) g/dL Hct (42.0-52.0) % MCV (80.0-105.0) fl MCH (25.0-35.0) pg MCHC (31.0-37.0) g/dl RDW (11.5-14.5) % Plt Count (120.0-450.0) 10^3/uL MPV (7.0-11.0) fl Gran % (50.0-68.0) % Lymph % (Auto) (22.0-35.0) % Hood % (Auto) (1.0-6.0) % Eos % (Auto) (1.5-5.0) % Baso % (Auto) (0.0-3.0) % Gran # (1.4-6.5) Lymph # (Auto) (1.2-3.4) Hood # (Auto) (0.1-0.6) Eos # (Auto) (0.0-0.7) Baso # (Auto) (0.0-2.0) K/mm3 pCO2 148 H* (35-45) mm/Hg pO2 119.0 H (80-100) mm/Hg HCO3 33.3 H (21-28) mmol/L ABG pH 6.96 L* (7.35-7.45) ABG Total CO2 37.8 H (22-28) mmol.L ABG O2 Saturation 99.2 H (95-98) % ABG O2 Content 16.1 (15-23) ML/dl ABG Base Excess -1.9 (-2.0-3.0) mmol/L ABG Hemoglobin 11.7 (11.7-17.4) g/dL ABG Carboxyhemoglobin 1.8 H (0.5-1.5) % POC ABG HHb (Measured) 0.8 (0-5) % ABG Methemoglobin 0.7 (0.0-3.0) % ABG O2 Capacity 16.2 (16-24) mL/dl Hgb O2 Saturation 96.7 (95.0-98.0) % FiO2 100.0 % Sodium 143 (132-148) mmol/L Potassium 5.6 H* (3.6-5.0) mmol/L Chloride 106 (98-107) mmol/L Carbon Dioxide 34 H (21-33) mmol/L Anion Gap 9 L (10-20) BUN 47 H (7-21) mg/dL Creatinine 1.6 H (0.8-1.5) mg/dl Est GFR ( Amer) 50 Est GFR (Non-Af Amer) 41 POC Glucose (mg/dL) 150 H (65-110) mg/dL Random Glucose 159 H (70-110) mg/dL Calcium 8.1 L (8.4-10.5) mg/dL Phosphorus 6.0 H (2.5-4.5) mg/dL Magnesium 2.2 (1.7-2.2) mg/dL Total Bilirubin 0.6 (0.2-1.3) mg/dL AST 28 (17-59) U/L ALT 17 (7-56) U/L Alkaline Phosphatase 53 (38-126) U/L Total Protein 5.4 L (5.8-8.3) g/dL Albumin 2.8 L (3.0-4.8) g/dL Globulin 2.7 gm/dL Albumin/Globulin Ratio 1.0 L (1.1-1.8) Procalcitonin (0.19-0.49) NG/ML 07/12/18 07/12/18 07/12/18 Range/Units 17:52 16:00 14:00 WBC 21.9 H (4.5-11.0) 10^3/ul RBC 4.36 (3.5-6.1) 10^6/uL Hgb 13.6 L (14.0-18.0) g/dL Hct 44.5 (42.0-52.0) % MCV 102.1 (80.0-105.0) fl MCH 31.2 (25.0-35.0) pg MCHC 30.6 L (31.0-37.0) g/dl RDW 16.2 H (11.5-14.5) % Plt Count 158 (120.0-450.0) 10^3/uL MPV 11.7 H (7.0-11.0) fl Gran % 91.5 H (50.0-68.0) % Lymph % (Auto) 6.8 L (22.0-35.0) % Hood % (Auto) 1.7 (1.0-6.0) % Eos % (Auto) 0.0 L (1.5-5.0) % Baso % (Auto) 0.0 (0.0-3.0) % Gran # 20.01 H (1.4-6.5) Lymph # (Auto) 1.5 (1.2-3.4) Hood # (Auto) 0.4 (0.1-0.6) Eos # (Auto) 0.0 (0.0-0.7) Baso # (Auto) 0.01 (0.0-2.0) K/mm3 pCO2 94 H* (35-45) mm/Hg pO2 120.0 H (80-100) mm/Hg HCO3 30.6 H (21-28) mmol/L ABG pH 7.12 L* (7.35-7.45) ABG Total CO2 33.5 H (22-28) mmol.L ABG O2 Saturation 99.7 H (95-98) % ABG O2 Content 17.1 (15-23) ML/dl ABG Base Excess -1.1 (-2.0-3.0) mmol/L ABG Hemoglobin 12.4 (11.7-17.4) g/dL ABG Carboxyhemoglobin 1.8 H (0.5-1.5) % POC ABG HHb (Measured) 0.3 (0-5) % ABG Methemoglobin 0.9 (0.0-3.0) % ABG O2 Capacity 17.2 (16-24) mL/dl Hgb O2 Saturation 97.1 (95.0-98.0) % FiO2 100.0 % Sodium (132-148) mmol/L Potassium (3.6-5.0) mmol/L Chloride (98-107) mmol/L Carbon Dioxide (21-33) mmol/L Anion Gap (10-20) BUN (7-21) mg/dL Creatinine (0.8-1.5) mg/dl Est GFR ( Amer) Est GFR (Non-Af Amer) POC Glucose (mg/dL) 134 H (65-110) mg/dL Random Glucose (70-110) mg/dL Calcium (8.4-10.5) mg/dL Phosphorus (2.5-4.5) mg/dL Magnesium (1.7-2.2) mg/dL Total Bilirubin (0.2-1.3) mg/dL AST (17-59) U/L ALT (7-56) U/L Alkaline Phosphatase (38-126) U/L Total Protein (5.8-8.3) g/dL Albumin (3.0-4.8) g/dL Globulin gm/dL Albumin/Globulin Ratio (1.1-1.8) Procalcitonin (0.19-0.49) NG/ML 07/12/18 07/12/18 07/12/18 Range/Units 12:40 11:33 09:30 WBC 21.4 H (4.5-11.0) 10^3/ul RBC 4.19 (3.5-6.1) 10^6/uL Hgb 13.1 L (14.0-18.0) g/dL Hct 42.4 (42.0-52.0) % MCV 101.2 (80.0-105.0) fl MCH 31.3 (25.0-35.0) pg MCHC 30.9 L (31.0-37.0) g/dl RDW 16.3 H (11.5-14.5) % Plt Count 162 (120.0-450.0) 10^3/uL MPV 11.3 H (7.0-11.0) fl Gran % 92.4 H (50.0-68.0) % Lymph % (Auto) 4.7 L (22.0-35.0) % Hood % (Auto) 2.9 (1.0-6.0) % Eos % (Auto) 0.0 L (1.5-5.0) % Baso % (Auto) 0.0 (0.0-3.0) % Gran # 19.76 H (1.4-6.5) Lymph # (Auto) 1.0 L (1.2-3.4) Hood # (Auto) 0.6 (0.1-0.6) Eos # (Auto) 0.0 (0.0-0.7) Baso # (Auto) 0.00 (0.0-2.0) K/mm3 pCO2 113 H* (35-45) mm/Hg pO2 89.0 (80-100) mm/Hg HCO3 30.6 H (21-28) mmol/L ABG pH 7.04 L* (7.35-7.45) ABG Total CO2 34.1 H (22-28) mmol.L ABG O2 Saturation 98.5 H (95-98) % ABG O2 Content 16.7 (15-23) ML/dl ABG Base Excess -2.8 L (-2.0-3.0) mmol/L ABG Hemoglobin 12.4 (11.7-17.4) g/dL ABG Carboxyhemoglobin 1.9 H (0.5-1.5) % POC ABG HHb (Measured) 1.5 (0-5) % ABG Methemoglobin 1.1 (0.0-3.0) % ABG O2 Capacity 17.0 (16-24) mL/dl Hgb O2 Saturation 95.5 (95.0-98.0) % FiO2 100.0 % Sodium (132-148) mmol/L Potassium (3.6-5.0) mmol/L Chloride (98-107) mmol/L Carbon Dioxide (21-33) mmol/L Anion Gap (10-20) BUN (7-21) mg/dL Creatinine (0.8-1.5) mg/dl Est GFR ( Amer) Est GFR (Non-Af Amer) POC Glucose (mg/dL) 134 H (65-110) mg/dL Random Glucose (70-110) mg/dL Calcium (8.4-10.5) mg/dL Phosphorus (2.5-4.5) mg/dL Magnesium (1.7-2.2) mg/dL Total Bilirubin (0.2-1.3) mg/dL AST (17-59) U/L ALT (7-56) U/L Alkaline Phosphatase (38-126) U/L Total Protein (5.8-8.3) g/dL Albumin (3.0-4.8) g/dL Globulin gm/dL Albumin/Globulin Ratio (1.1-1.8) Procalcitonin (0.19-0.49) NG/ML 07/12/18 Range/Units 06:35 WBC (4.5-11.0) 10^3/ul RBC (3.5-6.1) 10^6/uL Hgb (14.0-18.0) g/dL Hct (42.0-52.0) % MCV (80.0-105.0) fl MCH (25.0-35.0) pg MCHC (31.0-37.0) g/dl RDW (11.5-14.5) % Plt Count (120.0-450.0) 10^3/uL MPV (7.0-11.0) fl Gran % (50.0-68.0) % Lymph % (Auto) (22.0-35.0) % Hood % (Auto) (1.0-6.0) % Eos % (Auto) (1.5-5.0) % Baso % (Auto) (0.0-3.0) % Gran # (1.4-6.5) Lymph # (Auto) (1.2-3.4) Hood # (Auto) (0.1-0.6) Eos # (Auto) (0.0-0.7) Baso # (Auto) (0.0-2.0) K/mm3 pCO2 (35-45) mm/Hg pO2 (80-100) mm/Hg HCO3 (21-28) mmol/L ABG pH (7.35-7.45) ABG Total CO2 (22-28) mmol.L ABG O2 Saturation (95-98) % ABG O2 Content (15-23) ML/dl ABG Base Excess (-2.0-3.0) mmol/L ABG Hemoglobin (11.7-17.4) g/dL ABG Carboxyhemoglobin (0.5-1.5) % POC ABG HHb (Measured) (0-5) % ABG Methemoglobin (0.0-3.0) % ABG O2 Capacity (16-24) mL/dl Hgb O2 Saturation (95.0-98.0) % FiO2 % Sodium (132-148) mmol/L Potassium (3.6-5.0) mmol/L Chloride (98-107) mmol/L Carbon Dioxide (21-33) mmol/L Anion Gap (10-20) BUN (7-21) mg/dL Creatinine (0.8-1.5) mg/dl Est GFR ( Amer) Est GFR (Non-Af Amer) POC Glucose (mg/dL) (65-110) mg/dL Random Glucose (70-110) mg/dL Calcium (8.4-10.5) mg/dL Phosphorus (2.5-4.5) mg/dL Magnesium (1.7-2.2) mg/dL Total Bilirubin (0.2-1.3) mg/dL AST (17-59) U/L ALT (7-56) U/L Alkaline Phosphatase (38-126) U/L Total Protein (5.8-8.3) g/dL Albumin (3.0-4.8) g/dL Globulin gm/dL Albumin/Globulin Ratio (1.1-1.8) Procalcitonin 0.79 H (0.19-0.49) NG/ML Laboratory Results - last 24 hr 07/12/18 07/12/18 07/12/18 06:35 09:30 11:33 WBC 21.4 H RBC 4.19 Hgb 13.1 L Hct 42.4 MCV 101.2 MCH 31.3 MCHC 30.9 L RDW 16.3 H Plt Count 162 MPV 11.3 H Gran % 92.4 H Lymph % (Auto) 4.7 L Hood % (Auto) 2.9 Eos % (Auto) 0.0 L Baso % (Auto) 0.0 Gran # 19.76 H Lymph # (Auto) 1.0 L Hood # (Auto) 0.6 Eos # (Auto) 0.0 Baso # (Auto) 0.00 pCO2 pO2 HCO3 ABG pH ABG Total CO2 ABG O2 Saturation ABG O2 Content ABG Base Excess ABG Hemoglobin ABG Carboxyhemoglobin POC ABG HHb (Measured) ABG Methemoglobin ABG O2 Capacity Hgb O2 Saturation FiO2 Sodium Potassium Chloride Carbon Dioxide Anion Gap BUN Creatinine Est GFR ( Amer) Est GFR (Non-Af Amer) POC Glucose (mg/dL) 134 H Random Glucose Calcium Phosphorus Magnesium Total Bilirubin AST ALT Alkaline Phosphatase Total Protein Albumin Globulin Albumin/Globulin Ratio Procalcitonin 0.79 H 07/12/18 07/12/18 07/12/18 12:40 14:00 16:00 WBC 21.9 H RBC 4.36 Hgb 13.6 L Hct 44.5 MCV 102.1 MCH 31.2 MCHC 30.6 L RDW 16.2 H Plt Count 158 MPV 11.7 H Gran % 91.5 H Lymph % (Auto) 6.8 L Hood % (Auto) 1.7 Eos % (Auto) 0.0 L Baso % (Auto) 0.0 Gran # 20.01 H Lymph # (Auto) 1.5 Hood # (Auto) 0.4 Eos # (Auto) 0.0 Baso # (Auto) 0.01 pCO2 113 H* 94 H* pO2 89.0 120.0 H HCO3 30.6 H 30.6 H ABG pH 7.04 L* 7.12 L* ABG Total CO2 34.1 H 33.5 H ABG O2 Saturation 98.5 H 99.7 H ABG O2 Content 16.7 17.1 ABG Base Excess -2.8 L -1.1 ABG Hemoglobin 12.4 12.4 ABG Carboxyhemoglobin 1.9 H 1.8 H POC ABG HHb (Measured) 1.5 0.3 ABG Methemoglobin 1.1 0.9 ABG O2 Capacity 17.0 17.2 Hgb O2 Saturation 95.5 97.1 FiO2 100.0 100.0 Sodium Potassium Chloride Carbon Dioxide Anion Gap BUN Creatinine Est GFR ( Amer) Est GFR (Non-Af Amer) POC Glucose (mg/dL) Random Glucose Calcium Phosphorus Magnesium Total Bilirubin AST ALT Alkaline Phosphatase Total Protein Albumin Globulin Albumin/Globulin Ratio Procalcitonin 07/12/18 07/12/18 07/13/18 17:52 22:06 05:26 WBC RBC Hgb Hct MCV MCH MCHC RDW Plt Count MPV Gran % Lymph % (Auto) Hood % (Auto) Eos % (Auto) Baso % (Auto) Gran # Lymph # (Auto) [place] # (Auto) Eos # (Auto) Baso # (Auto) pCO2 pO2 HCO3 ABG pH ABG Total CO2 ABG O2 Saturation ABG O2 Content ABG Base Excess ABG Hemoglobin ABG Carboxyhemoglobin POC ABG HHb (Measured) ABG Methemoglobin ABG O2 Capacity Hgb O2 Saturation FiO2 Sodium 143 Potassium 5.6 H* Chloride 106 Carbon Dioxide 34 H Anion Gap 9 L BUN 47 H Creatinine 1.6 H Est GFR ( Amer) 50 Est GFR (Non-Af Amer) 41 POC Glucose (mg/dL) 134 H 150 H Random Glucose 159 H Calcium 8.1 L Phosphorus 6.0 H Magnesium 2.2 Total Bilirubin 0.6 AST 28 ALT 17 Alkaline Phosphatase 53 Total Protein 5.4 L Albumin 2.8 L Globulin 2.7 Albumin/Globulin Ratio 1.0 L Procalcitonin 07/13/18 07:20 WBC RBC Hgb Hct MCV MCH MCHC RDW Plt Count MPV Gran % Lymph % (Auto) [place] % (Auto) Eos % (Auto) Baso % (Auto) Gran # Lymph # (Auto) [place] # (Auto) Eos # (Auto) Baso # (Auto) pCO2 148 H* pO2 119.0 H HCO3 33.3 H ABG pH 6.96 L* ABG Total CO2 37.8 H ABG O2 Saturation 99.2 H ABG O2 Content 16.1 ABG Base Excess -1.9 ABG Hemoglobin 11.7 ABG Carboxyhemoglobin 1.8 H POC ABG HHb (Measured) 0.8 ABG Methemoglobin 0.7 ABG O2 Capacity 16.2 Hgb O2 Saturation 96.7 FiO2 100.0 Sodium Potassium Chloride Carbon Dioxide Anion Gap BUN Creatinine Est GFR ( Amer) Est GFR (Non-Af Amer) POC Glucose (mg/dL) Random Glucose Calcium Phosphorus Magnesium Total Bilirubin AST ALT Alkaline Phosphatase Total Protein Albumin Globulin Albumin/Globulin Ratio Procalcitonin Critical Care Progress Note - Nutrition Nutrition: Nutrition Category Date Time Status NPO Diet [DIET] Diets 07/12/18 Lunch Ordered Addendum Addendum: 07/13/18 09:58 ICU Attending Addendum: Patient seen and examined. Case reviewed on round with housestaff. Agree with resident note above with the following additions/exceptions: 88 M with Aortic stenosis, Afib, pHTN, Parkinsons, COPD admitted for HCRF and GI Bleeding As far as his GiB, reports of large amount of bright red blood hemetesis. HB has been stable at 13. GI on board, No plan for scope at this point He is clearly failing clinically and is in worsening acedemia from HCRF despite aggressive NIPPV. Yesterday afternoon approx 2:30pm we had a discussion with Estephania from [facility], myself and listed REKHAMeenakshi Qiana via phone. I updated her and we reviewed his goal of care advanced directives. Estephania reiterated her conversation with Ankur from the day prior confirming he would not want to be intubated. 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 This morning, his PCO2 has risen and ph is <7.0 demonstrating that he has failed NIPPV and since he is not to be intubated, he will not survive this and in accordance with his wishes we will make comfort a priority. I informed Qiana yesterday this would include stopping Bipap and other meds while given morphine if he needed it for pain while knowing this could/would make his resp status worse. At this point will d/c amio, bicarb drip, bipap Order morphine 2mg q2mins PRN pain ensure comfort I have called Teresa this morning who did not merchandise pickup/receiving associate. I left a voicemail asking to for her to call us back. Not patient information relayed over voice mail. Will attempt again to contact her. DNR DNI TECHNOLOGY COORDINATOR Compa Hidalgo MD [employer] Waste Remover Critical Care TIme: 30 mins
--- NOTE | 2018-07-13 09:00 | CP.PCM.PN ---
Subjective - Date & Time of Evaluation Date of Evaluation: 07/13/18 Time of Evaluation: 09:00 Objective - Vital Signs/Intake and Output Vital Signs (last 24 hours): Temp Pulse Resp BP Pulse Ox 97.1 F L 60 33 H 95/44 L 91 L 07/12/18 11:50 07/13/18 08:08 07/13/18 08:08 07/13/18 08:09 07/13/18 08:08 Intake and Output: 07/13/18 07/13/18 06:59 18:59 Intake Total 2254 Output Total 50 Balance 2204 - Medications Medications: Current Medications Morphine Sulfate (Morphine) 2 mg IVP Q2M PRN PRN Reason: Other Last Admin: 07/13/18 08:56 Dose: 2 mg - Labs Labs: 07/12/18 14:00 07/13/18 05:26 PT 13.1 SECONDS (9.4-12.5) H 07/11/18 17:58 INR 1.15 07/11/18 17:58 APTT 33.2 Seconds (25.1-36.5) 07/11/18 17:58
[2018-07-13] MEDS ORDERED: Morphine PCA 1 mg/ml (30ml) 30 ML IV PRN (09:30)
--- NOTE | 2018-07-13 10:46 | CP.PCM.PRO ---
Pronouncement of Note - Clinical Findings Physical Exam: No Response Verbal/Painful Stimuli, Absent Peripheral Puls es{Carotid & Femoral}, Absent Heart & Breath Sounds, No Pupillary Light Reflex, No Corneal Reflex, Pupils Fixed & Dilated, Absence of Vital Signs - Pronouncement Time Time of Pronouncement of : 10:02 - Notifications Pronouncement Notifications: Family Notified, Atending Notified Utilization Review Nurse Notified: No - Autopsy Autopsy Requested: No - [place] [id number]
--- NOTE | 2018-07-13 11:18 | CP.PCM.PN ---
Subjective - Date & Time of Evaluation Date of Evaluation: 07/13/18 Time of Evaluation: 15:00 - Subjective Subjective: unresponsive, agonal breathing Objective - Vital Signs/Intake and Output Vital Signs (last 24 hours): Temp Pulse Resp BP Pulse Ox 97.1 F L 61 33 H 95/44 L 91 L 07/12/18 11:50 07/13/18 09:19 07/13/18 08:08 07/13/18 08:09 07/13/18 08:08 Intake and Output: 07/13/18 07/13/18 06:59 18:59 Intake Total 2254 Output Total 50 Balance 2204 - Medications Medications: Current Medications Morphine Sulfate (Morphine Librarian Specialist 1 Mg/Ml) 30 mls @ 2 mls/hr IV PRN PRN; Protocol PRN Reason: REHAB CARE ASSISTANT PER MD ORDER Last Admin: 07/13/18 09:41 Dose: 2 mg/hr, 2 mls/hr Morphine Sulfate (Morphine) 2 mg IVP Q2M PRN PRN Reason: Other Last Admin: 07/13/18 09:29 Dose: 2 mg - Labs Labs: 07/12/18 14:00 07/13/18 05:26 PT 13.1 SECONDS (9.4-12.5) H 07/11/18 17:58 INR 1.15 07/11/18 17:58 APTT 33.2 Seconds (25.1-36.5) 07/11/18 17:58 - Constitutional Appears: Chronically Ill - Eye Exam Eye Exam: Normal appearance Additional comments: sluggish - Respiratory Exam Respiratory Exam: Decreased Breath Sounds, Rhonchi Additional comments: irregular breathing - Cardiovascular Exam Cardiovascular Exam: Irregular Rhythm, +S1, +S2 - GI/Abdominal Exam GI & Abdominal Exam: Soft, Hypoactive Bowel Sounds - Exam Additional comments: oliguria - Neurological Exam Additional comments: unresponsive - Skin Skin Exam: Dry, Pallor Additional comments: anasarca Assessment and Plan - Assessment and Plan (Free Text) Assessment: 88 year old male with history of HTN, CHF , COPD who was admitted with sepsis, SURAJ pneumonia, severe aortic stenosis, respiratory failure, hypoxemia. Patient is receiving comfort care in accordance with Advance Care Directive. MASTER Smith updated of patients condition and is in agreement with this plan. Plan: Morphine 2 mg IV as needed. Will start continuos Morphine infusion O2 as needed DC telemetry monitoring, lab testing and imaging studies
[2018-07-13 11:38] VITALS: PULSE 62; RESP 5; O2SAT 95
--- NOTE | 2018-07-16 22:33 | CP.PCM.DIS ---
Provider - Provider Date of Admission: 07/06/18 16:44 Attending physician: Monica Richmond DO Primary care physician: Dr. Porter Consults: Vinh - Cardiolgoroger Lozano - ICU/CCU Alvin Pastrana - Infectious disease Time Spent in preparation of Discharge (in minutes): 45 Diagnosis - Discharge Diagnosis (1) Hematemesis Status: Acute (2) GI bleed Status: Acute (3) Acute respiratory failure Status: Acute (4) COPD exacerbation Status: Acute (5) Pneumonia Status: Acute Hospital Course - Lab Results Lab Results: Micro Results 07/12/18 06:52 Blood-Venous Blood Culture - Preliminary NO GROWTH AFTER 4 DAYS 07/12/18 06:35 Blood-Venous Blood Culture - Preliminary NO GROWTH AFTER 4 DAYS 07/11/18 21:15 Naris MRSA Culture (Admit) - Final MRSA NOT DETECTED 07/06/18 15:00 Blood Blood Culture - Final NO GROWTH AFTER 5 DAYS 07/06/18 15:00 Blood Gram Stain - Final TEST NOT PERFORMED 07/06/18 14:30 Blood Blood Culture - Final NO GROWTH AFTER 5 DAYS 07/06/18 14:30 Blood Gram Stain - Final TEST NOT PERFORMED 07/07/18 13:00 Trachasp Gram Stain - Final 07/07/18 13:00 Trachasp Sputum Culture - Final Yeast Species 07/06/18 19:10 Urine Urine Culture - Final No Growth (<1,000 CFU/ML) 07/06/18 21:28 Naris MRSA Culture (Admit) - Final MRSA NOT DETECTED Most Recent Lab Values WBC 21.9 10^3/ul (4.5-11.0) H 07/12/18 14:00 RBC 4.36 10^6/uL (3.5-6.1) 07/12/18 14:00 Hgb 13.6 g/dL (14.0-18.0) L 07/12/18 14:00 Hct 44.5 % (42.0-52.0) 07/12/18 14:00 MCV 102.1 fl (80.0-105.0) 07/12/18 14:00 MCH 31.2 pg (25.0-35.0) 07/12/18 14:00 MCHC 30.6 g/dl (31.0-37.0) L 07/12/18 14:00 RDW 16.2 % (11.5-14.5) H 07/12/18 14:00 Plt Count 158 10^3/uL (120.0-450.0) 07/12/18 14:00 MPV 11.7 fl (7.0-11.0) H 07/12/18 14:00 Gran % 91.5 % (50.0-68.0) H 07/12/18 14:00 Lymph % (Auto) 6.8 % (22.0-35.0) L 07/12/18 14:00 [place] % (Auto) 1.7 % (1.0-6.0) 07/12/18 14:00 Eos % (Auto) 0.0 % (1.5-5.0) L 07/12/18 14:00 Baso % (Auto) 0.0 % (0.0-3.0) 07/12/18 14:00 Gran # 20.01 (1.4-6.5) H 07/12/18 14:00 Lymph # (Auto) 1.5 (1.2-3.4) 07/12/18 14:00 [place] # (Auto) 0.4 (0.1-0.6) 07/12/18 14:00 Eos # (Auto) 0.0 (0.0-0.7) 07/12/18 14:00 Baso # (Auto) 0.01 K/mm3 (0.0-2.0) 07/12/18 14:00 Neutrophils % (Manual) 90 % (50.0-70.0) H 07/10/18 10:15 Band Neutrophils % 2 % (0-2) 07/10/18 10:15 Lymphocytes % (Manual) 4 % (22.0-35.0) L 07/10/18 10:15 Atypical Lymphs % 2 % (0.0-0.0) H 07/10/18 10:15 Monocytes % (Manual) 1 % (1.0-6.0) 07/10/18 10:15 Toxic Granulation Slight 07/10/18 10:15 Platelet Evaluation Normal (NORMAL) 07/10/18 10:15 Poikilocytosis (manual Slight 07/10/18 10:15 Anisocytosis (manual) 1+ 07/10/18 10:15 Ovalocytes Slight 07/10/18 10:15 PT 13.1 SECONDS (9.4-12.5) H 07/11/18 17:58 INR 1.15 07/11/18 17:58 APTT 33.2 Seconds (25.1-36.5) 07/11/18 17:58 pCO2 148 mm/Hg (35-45) H* 07/13/18 07:20 pO2 119.0 mm/Hg (80-100) H 07/13/18 07:20 HCO3 33.3 mmol/L (21-28) H 07/13/18 07:20 ABG pH 6.96 (7.35-7.45) L* 07/13/18 07:20 ABG Total CO2 37.8 mmol.L (22-28) H 07/13/18 07:20 ABG O2 Saturation 99.2 % (95-98) H 07/13/18 07:20 ABG O2 Content 16.1 ML/dl (15-23) 07/13/18 07:20 ABG Base Excess -1.9 mmol/L (-2.0-3.0) 07/13/18 07:20 ABG Hemoglobin 11.7 g/dL (11.7-17.4) 07/13/18 07:20 ABG Carboxyhemoglobin 1.8 % (0.5-1.5) H 07/13/18 07:20 POC ABG HHb (Measured) 0.8 % (0-5) 07/13/18 07:20 ABG Methemoglobin 0.7 % (0.0-3.0) 07/13/18 07:20 ABG O2 Capacity 16.2 mL/dl (16-24) 07/13/18 07:20 ABG Potassium 3.8 mmol/L (3.6-5.2) 07/06/18 16:40 VBG pH 7.09 (7.32-7.43) L* 07/11/18 17:55 VBG pCO2 109.0 (40-60) H* 07/11/18 17:55 VBG HCO3 33.1 mmol/l (21-28) H 07/11/18 17:55 VBG Total CO2 36.4 mmol.L (22-28) H 07/11/18 17:55 VBG O2 Sat (Calc) 93.1 % (40-65) H 07/11/18 17:55 VBG Base Excess -0.1 mmol/L (0.0-2.0) L 07/11/18 17:55 VBG Potassium 5.3 mmol/L (3.6-5.2) H 07/11/18 17:55 Hgb O2 Saturation 96.7 % (95.0-98.0) 07/13/18 07:20 Sodium 142.0 mmol/L (132-148) 07/11/18 17:55 Chloride 107.0 mmol/L (98-107) 07/11/18 17:55 Glucose 187 mg/dl (75-110) H 07/11/18 17:55 Lactate 1.4 mmol/L (0.7-2.1) 07/11/18 17:55 FiO2 100.0 % 07/13/18 07:20 Sodium 143 mmol/L (132-148) 07/13/18 05:26 Potassium 5.6 mmol/L (3.6-5.0) H* 07/13/18 05:26 Chloride 106 mmol/L (98-107) 07/13/18 05:26 Carbon Dioxide 34 mmol/L (21-33) H 07/13/18 05:26 Anion Gap 9 (10-20) L 07/13/18 05:26 BUN 47 mg/dL (7-21) H 07/13/18 05:26 Creatinine 1.6 mg/dl (0.8-1.5) H 07/13/18 05:26 Est GFR ( Amer) 50 07/13/18 05:26 Est GFR (Non-Af Amer) 41 07/13/18 05:26 POC Glucose (mg/dL) 165 mg/dL (65-110) H 07/13/18 05:59 Random Glucose 159 mg/dL (70-110) H 07/13/18 05:26 Hemoglobin A1c 5.3 % (4.2-6.5) 07/08/18 05:00 Calcium 8.1 mg/dL (8.4-10.5) L 07/13/18 05:26 Phosphorus 6.0 mg/dL (2.5-4.5) H 07/13/18 05:26 Magnesium 2.2 mg/dL (1.7-2.2) 07/13/18 05:26 Total Bilirubin 0.6 mg/dL (0.2-1.3) 07/13/18 05:26 AST 28 U/L (17-59) 07/13/18 05:26 ALT 17 U/L (7-56) 07/13/18 05:26 Alkaline Phosphatase 53 U/L (38-126) 07/13/18 05:26 Lactate Dehydrogenase 502 U/L (333-699) 07/09/18 06:10 Total Creatine Kinase 28 U/L (35-230) L 07/09/18 06:10 Troponin I 0.10 ng/mL 07/09/18 06:10 NT-Pro-B Natriuret Pep 9270 pg/mL (0-450) H 07/06/18 15:00 Total Protein 5.4 g/dL (5.8-8.3) L 07/13/18 05:26 Albumin 2.8 g/dL (3.0-4.8) L 07/13/18 05:26 Globulin 2.7 gm/dL 07/13/18 05:26 Albumin/Globulin Ratio 1.0 (1.1-1.8) L 07/13/18 05:26 Triglycerides 62 mg/dL (35-160) 07/08/18 05:00 Cholesterol 75 mg/dL (130-200) L 07/08/18 05:00 LDL Cholesterol Direct < 30 mg/dL (0-129) 07/08/18 05:00 HDL Cholesterol 37 mg/dL (29-60) 07/08/18 05:00 Procalcitonin 0.79 NG/ML (0.19-0.49) H 07/12/18 06:35 TSH 3rd Generation 0.54 mIU/mL (0.46-4.68) 07/08/18 05:00 Arterial Blood Potassium 3.8 mmol/L (3.6-5.2) 07/06/18 16:40 Venous Blood Potassium 5.3 mmol/L (3.6-5.2) H 07/11/18 17:55 Urine Color Dark yellow (YELLOW) 07/06/18 19:10 Urine Appearance Slight-cloudy (CLEAR) 07/06/18 19:10 Urine pH 5.5 (4.7-8.0) 07/06/18 19:10 Ur Specific [place] >= 1.030 (1.005-1.035) 07/06/18 19:10 Urine Protein 100 mg/dL (<30 mg/dL) H 07/06/18 19:10 Urine Glucose (UA) Negative mg/dL (NEGATIVE) 07/06/18 19:10 Urine Ketones 15 mg/dL (NEGATIVE) H 07/06/18 19:10 Urine Blood Trace-lysed (NEGATIVE) H 07/06/18 19:10 Urine Nitrate Negative (NEGATIVE) 07/06/18 19:10 Urine Bilirubin Small (NEGATIVE) H 07/06/18 19:10 Urine Urobilinogen 1.0 E.U./dL (<1 E.U./dL) H 07/06/18 19:10 Ur Leukocyte Esterase Trace [place]/uL (NEGATIVE) H 07/06/18 19:10 Urine RBC 1 - 3 /hpf (0-2) 07/06/18 19:10 Urine WBC 1 - 3 /hpf (0-6) 07/06/18 19:10 Ur Epithelial Cells 0 - 2 /hpf (0-5) 07/06/18 19:10 Amorphous Sediment Few 07/06/18 19:10 Urine Bacteria Trace (NEG) 07/06/18 19:10 Digoxin < 0.4 ng/mL (0.8-2.0) L 07/06/18 15:00 Urine Opiates Screen Negative (NEGATIVE) 07/06/18 19:10 Urine Methadone Screen Negative (NEGATIVE) 07/06/18 19:10 Ur Barbiturates Screen Negative (NEGATIVE) 07/06/18 19:10 Ur Phencyclidine Scrn Negative (NEGATIVE) 07/06/18 19:10 Ur Amphetamines Screen Negative (NEGATIVE) 07/06/18 19:10 U Benzodiazepines Scrn Negative (NEGATIVE) 07/06/18 19:10 U Oth Cocaine Metabols Negative (NEGATIVE) 07/06/18 19:10 U Cannabinoids Screen Negative (NEGATIVE) 07/06/18 19:10 Influenza Typ A,B (EIA) Negative for flu a/b (NEGATIVE) 07/06/18 16:40 Ur L.pneumophila Ag Negative (NEGATIVE) 07/07/18 19:30 Blood Type O POSITIVE 07/11/18 17:58 Blood Type Confirm O POSITIVE 07/11/18 18:24 Antibody Screen Negative 07/11/18 17:58 Crossmatch See Detail 07/11/18 17:58 BBK History Checked No verified bt 07/11/18 17:58 - Hospital Course Hospital Course: Mike Richmond DO PGY1 - Internal Medicine Beauty Artist - Hospital DC SUMMARY: 88M PMH of CHF, HTN, Pulm HTN, COPD, NSTEMI, [place], Parkinsons, Presented to [facility] ED 07/06 w/ AMS and c/o coughing, gurgling and unresponsiveness. CXR performed in ED found to have diffuse R lung alveolar infiltrate and vascular congestion. Patient was started on broad spectrum IV Antibiotics and Infectious disease was consulted. Patient was unable to protect airway while in ED, subsequently intubated and transferred to MICU for management of hypercapnic respiratory failure and acute toxic metabolic encephalopathy 2/2 severe R sided PNA. Management in the ICU was continued w/ daily sedation vacation and spontaneous breathing trial; Patient was he was subsequently weened off of vent, and extubated 07/08; placed on bipap and transferred to med/surg. He remained stable on med/surg reported his breathing was improving; was seen by palliative care on 07/10 and deemed competent to sign POLST, patient wished to become DNR/DNI. Patient was tolerating PT/OT well, and was recommended for TCU. Hospital course was complicated on 07/12 with acute GI Bleed w/ hemetemesis; Over 1300ml coffee ground emesis suctioned out via NG; hemoglobin at time of event was noted to be 14.9. GI consulted, recommended conservative management for now. Patient was again transferred to ICU and intubated; managed for acute GI bleed as well as hypercapnic respiratory failure. Hb trended overnight remained stable however acidosis worsened through ICU course. in ICU patient noted to have VTach and started on AMIO drip. On morning of 07/13 patient was noted to have agonal breath sounds and pH of 6.96. POA was notified of patient's status, and status changed to comfort measures only w/ continuous morphine and O2NC PRN. Patient was pronounced on 07/13/18 and 10:02AM. - Date & Time of H&P Date of H&P: 07/06/18 Time of H&P: 15:46 Discharge Exam - Additional Findings Additional findings: No Response Verbal/Painful Stimuli, Absent Peripheral Pulses{Carotid & Femoral}, Absent Heart & Breath Sounds, No Pupillary Light Reflex, No Corneal Reflex, Pupils Fixed & Dilated, Absence of Vital Signs Discharge Plan - Follow Up Plan Condition: Disposition: WITH WITHOUT AUTOPSY
== END 2018-07-13 10:02 | DRG 871 ==
LOC: ED 14:22 → ERH 16:44 → ICU 20:15 → 3RNO 07-08 18:38 → CCU 07-11 19:23
PROVIDERS: ADMIT Internal Medicine; ATTEND Hospitalist
PROC: 5A1945Z Respiratory Ventilation, 24-96 Consecutive Hours (ICD-10-PCS; principal; 2018-07-06)
PROC: 0BH17EZ Insertion of Endotracheal Airway into Trachea, Via Natural or Artificial Opening (ICD-10-PCS; 2018-07-06)
PROC: 0D9670Z Drainage of Stomach with Drainage Device, Via Natural or Artificial Opening (ICD-10-PCS; 2018-07-06)
PROC: 3E0F7GC Introduction of Other Therapeutic Substance into Respiratory Tract, Via Natural or Artificial Opening (ICD-10-PCS; 2018-07-07)
PROC: 5A09457 Assistance with Respiratory Ventilation, 24-96 Consecutive Hours, Continuous Positive Airway Pressure (ICD-10-PCS; 2018-07-11)
DX: A41.9 Sepsis, unspecified organism (principal); J96.02 Acute respiratory failure with hypercapnia; J18.1 Lobar pneumonia, unspecified organism; G92 Toxic encephalopathy; J44.1 Chronic obstructive pulmonary disease with (acute) exacerbation; J44.0 Chronic obstructive pulmonary disease with (acute) lower respiratory infection; K92.0 Hematemesis; E87.2 Acidosis; I47.2 Ventricular tachycardia; I42.0 Dilated cardiomyopathy; R65.20 Severe sepsis without septic shock; G20 Parkinson's disease; I48.0 Paroxysmal atrial fibrillation; I25.10 Atherosclerotic heart disease of native coronary artery without angina pectoris; I27.20 Pulmonary hypertension, unspecified; I50.9 Heart failure, unspecified; I11.0 Hypertensive heart disease with heart failure; N40.0 Benign prostatic hyperplasia without lower urinary tract symptoms; I08.3 Combined rheumatic disorders of mitral, aortic and tricuspid valves; K44.9 Diaphragmatic hernia without obstruction or gangrene; H91.90 Unspecified hearing loss, unspecified ear; I25.2 Old myocardial infarction; Z66 Do not resuscitate; Z51.5 Encounter for palliative care; Z85.46 Personal history of malignant neoplasm of prostate